=== PATIENT | female | born 1990 | race Caucasian/White ===

== ENCOUNTER 2017-08-14 11:04 | Emergency (ER) | payer OTHER ==
[~2017-08-14] VITALS: Ht 154.9 cm; Wt 89.1 kg
[2017-08-14] MEDS ORDERED: VITA200015 PO (11:20)
[2017-08-14] MEDS ORDERED: ADDE30CA3 PO (11:20)
[2017-08-14] MEDS ORDERED: PRIS50TA PO (11:20)
[2017-08-14] MEDS ORDERED: iron (11:20)
[2017-08-14] MEDS ORDERED: ADDE1TAB14 PO (11:20)
[2017-08-14] MEDS ORDERED: NS 1,000 ML IV ONE (12:15)
[2017-08-14] MEDS: MORPHINE 4 MG/ML 1ML SYRINGE IV PRN ×2 (12:18→14:24)
[2017-08-14 12:20] LABS: BASO % 0.4 % (0.0-1.0); EOS # 0.1 K/mm3 (0.0-0.50); EOS % 1.5 % (0.0-3.0); LARGE UNSTAINED CELL # 0.2 K/mm3 (0.0-0.4); LARGE UNSTAINED CELL % 2.4 % (0.0-4.0); LYMPH # 2.2 K/mm3 (1.5-6.5); MEAN CORPUSCULAR HEMOGLOBIN 30.4 pg (27.0-33.0); MEAN CORPUSCULAR HGB CONC 34.9 g/dl (32.0-36.5); MONO # 0.4 K/mm3 (0.0-0.8); MONO % 4.4 % (0.0-5.0); NEUTROPHILS # 5.7 K/mm3 (1.8-7.7); NEUTROPHILS % 66.2 % (36.0-66.0); PLATELET COUNT, AUTOMATED 374 k/mm3 (150-450); RED CELL DISTRIBUTION WIDTH 13.8 % (11.5-14.5); WHITE BLOOD COUNT 8.6 K/mm3 (4.0-10.0)
[2017-08-14 12:27] LABS: ALBUMIN 4.1 GM/DL (3.2-5.2); ALBUMIN/GLOBULIN RATIO 1.05 (1.00-1.93); ALKALINE PHOSPHATASE 82 U/L (45-117); ALT/SGPT 56 U/L (12-78); ANION GAP 7 MEQ/L (8-16); AST/SGOT 22 U/L (15-37); BILIRUBIN,DIRECT < 0.1 MG/DL (0.0-0.2); BILIRUBIN,TOTAL 0.2 MG/DL (0.2-1.0); BLOOD UREA NITROGEN 14 MG/DL (7-18); CALCIUM LEVEL 9.3 MG/DL (8.5-10.1); CARBON DIOXIDE LEVEL 25 MEQ/L (21-32); CHLORIDE LEVEL 103 MEQ/L (98-107); CREATININE FOR GFR 0.71 MG/DL (0.55-1.02); GLOMERULAR FILTRATION RATE > 60.0 (>60); GLUCOSE, FASTING 119 MG/DL (70-105); POTASSIUM SERUM 3.8 MEQ/L (3.5-5.1); SODIUM LEVEL 135 MEQ/L (136-145)
[2017-08-14] MEDS ORDERED: ISOVUE-370 76% 100ML VIAL (Q9967) As Ordered ONE (12:46)
--- NOTE | 2017-08-14 13:30 | REP ---
PELVIC ULTRASOUND: Real-time sonographic evaluation of the pelvis performed utilizing transabdominal and endovaginal technique. Bladder measures 8.9 x 5.1 x 8.1 cm. Uterus measures 9.2 x 4.6 x 6.1 cm. IUD is seen within the endometrial canal. Endometrial thickness is approximately 1.4 cm. Right ovary measures 2.6 x 2.5 x 1.9 cm. Left ovary measures 4.0 x 2.9 x 3.7 cm. There is a complex cyst of the left ovary 3.0 x 2.8 x 1.8 cm. There is no evidence of ovarian torsion with blood flow seen in each ovary with duplex Doppler evaluation, RI right ovary 0.52 and left ovary 0.57. There is no free fluid identified. IMPRESSION: IUD within the endometrial canal. Complex cyst left ovary 3 cm in maximum diameter. No torsion or free fluid. Signed by Phu Wright MD 08/14/2017 01:44 P
--- NOTE | 2017-08-14 14:29 | REP ---
CT ABDOMEN AND PELVIS WITH IV CONTRAST: TECHNIQUE: Axial contrast enhanced images from the lung bases to the pubic symphysis using 100 mL Isovue 370 intravenous contrast material with multiplanar reformations. COMPARISON: 05/29/2015. Visualized lungs bases are clear. The liver, spleen, adrenals, pancreas are unremarkable. There is no hydronephrosis. There is a right renal cyst posteriorly and somewhat superiorly measuring about 1.5 cm in diameter. There is no abdominal aortic aneurysm. There is no adenopathy. There is no free air or free fluid. No bowel wall thickening is seen. The appendix is normal. There is a left ovarian cyst measuring approximately 3.2 cm in diameter. IUD is seen within the uterus. Urinary bladder is grossly unremarkable. IMPRESSION: No evidence of appendicitis. Left ovarian cyst measures 3.2 cm in diameter. No free air or free fluid. Signed by Phu Wright MD 08/15/2017 05:32 P
[2017-08-14] MEDS ORDERED: BACT800T5 PO (14:38)
[2017-08-14] MEDS ORDERED: NORCOTAB PO (14:39)
[2017-08-14 14:50] VITALS: BP 121/77
== END 2017-08-14 14:53 | disposition home or self-care (01) ==
LOC: M ED 11:04
DX: N39.0 Urinary tract infection, site not specified (principal); N83.292 Other ovarian cyst, left side; Z87.440 Personal history of urinary (tract) infections; K21.9 Gastro-esophageal reflux disease without esophagitis; F90.9 Attention-deficit hyperactivity disorder, unspecified type; F41.9 Anxiety disorder, unspecified; F32.9 Major depressive disorder, single episode, unspecified; Z87.59 Personal history of other complications of pregnancy, childbirth and the puerperium; Z87.42 Personal history of other diseases of the female genital tract; Z85.3 Personal history of malignant neoplasm of breast; Z90.13 Acquired absence of bilateral breasts and nipples; F17.200 Nicotine dependence, unspecified, uncomplicated; F12.10 Cannabis abuse, uncomplicated; Z79.899 Other long term (current) drug therapy; Z91.040 Latex allergy status
CPT/HCPCS: 74177; 76830; 76856; 80048; 80076; 81001; 81025; 83690; 85025; 87086; 93976; 96361; 96374; 99283; Q9967

== ENCOUNTER → 2020-01-10 | Outpatient (REF) | payer OTHER ==
[~2020-01-10] MED LIST: ADDE1TAB14 PO; ADDE30CA3 PO; BACT800T5 PO; HYDR-3715 PO; PRIS50TA PO; VITA200015 PO; iron
[2020-01-10 17:55] LABS: INFLUENZA A AMPLIFICATION POSITIVE (NEGATIVE); INFLUENZA B AMPLIFICATION NEGATIVE (NEGATIVE)
== END ==
LOC: M LAB REF 12:40
PROVIDERS: ATTEND Physician Assistant Medical
DX: Z79.899 Other long term (current) drug therapy (principal)

== ENCOUNTER → 2020-05-26 | Outpatient (CLI) | payer OTHER ==
[2020-05-26 16:20] LABS: HEMATOCRIT 43.7 % (36.0-47.0); HEMOGLOBIN 14.3 g/dl (12.0-15.5); MEAN CORPUSCULAR HGB CONC 32.7 g/dl (32.0-36.5); MEAN CORPUSCULAR VOLUME 91.8 fl (80.0-96.0); PLATELET COUNT, AUTOMATED 263 10^3/uL (150-450); RED BLOOD COUNT 4.76 10^6/uL (4.00-5.40); WHITE BLOOD COUNT 9.3 10^3/uL (4.0-10.0)
[2020-05-26 16:32] LABS: ALBUMIN 3.9 GM/DL (3.2-5.2); ALT/SGPT 74 U/L (12-78); BILIRUBIN,TOTAL 0.5 MG/DL (0.2-1.0); BLOOD UREA NITROGEN 12 MG/DL (7-18); CARBON DIOXIDE LEVEL 27 MEQ/L (21-32); CHLORIDE LEVEL 106 MEQ/L (98-107); CHOLESTEROL LEVEL 221 MG/DL (<200); CHOLESTEROL RISK RATIO 5.139 (<5); CREATININE FOR GFR 0.77 MG/DL (0.55-1.30); FERRITIN 109 NG/ML (8-252); GLOMERULAR FILTRATION RATE > 60.0 (>60); GLUCOSE, FASTING 119 MG/DL (70-100); HDL CHOLESTEROL 43 MG/DL (>40); IRON (FE) 73 UG/DL (50-170); LDL CHOLESTEROL 131 MG/DL (<100); NON-HDL-C 178 MG/DL; PERCENT SATURATION 20.9 % (13.2-45.0); POTASSIUM SERUM 4.3 MEQ/L (3.5-5.1); SODIUM LEVEL 139 MEQ/L (136-145); TOTAL 25(OH) VITAMIN D 27.4 NG/ML (30.0-100.0); TOTAL IRON BINDING CAPACITY 349 UG/DL (250-450); TOTAL PROTEIN 7.2 GM/DL (6.4-8.2); TRIGLYCERIDES LEVEL 235 MG/DL (<150)
== END ==
LOC: M LRY 09:25
PROVIDERS: ATTEND Family Medicine
DX: Z79.899 Other long term (current) drug therapy (principal)

== ENCOUNTER → 2021-05-12 | Outpatient (CLI) | payer OTHER ==
--- NOTE | 2021-05-12 09:17 | REP ---
INDICATION: NONALCOHOLIC STEATOHEPATITIS (ANAND) COMPARISON: None. TECHNIQUE: Real time alegre scale ultrasound examination using curved array transducer. FINDINGS: Liver is mildly enlarged and measures 22 cm in craniocaudal length with increased parenchymal echotexture suggesting fatty infiltration. Focal fatty sparing adjacent to the gallbladder fossa noted. No further focal hepatic lesion identified. Pancreas is incompletely evaluated due to interposed bowel gas. The gallbladder demonstrates sludge without wall thickening or pericholecystic fluid. No biliary ductal dilatation is appreciated and the common bile duct measures 3.9 mm diameter. Right kidney is normal in reniform shape without hydronephrosis and measures 9.8 x 5.2 x 4.0 cm. No ascites in the visualized right upper quadrant. IMPRESSION: 1. Hepatomegaly and hepatosteatosis. 2. Small amount of layering sludge in the gallbladder without evidence for acute cholecystitis. <Electronically signed by Uvaldo Bates > 05/12/21 0969
== END ==
LOC: M RAD 08:30
PROVIDERS: ATTEND Internal Medicine Gastroenterology
DX: K75.81 Nonalcoholic steatohepatitis (NASH) (principal); R16.0 Hepatomegaly, not elsewhere classified

== ENCOUNTER 2021-09-08 01:54 | Emergency (ER) | payer OTHER ==
[~2021-09-08] VITALS: Ht 157.5 cm; Wt 61.4 kg
--- OUTSIDE RECORDS SUMMARY | 2021-09-08 01:58 | CCD | Continuity of Care Document ---
Author Author Katalina ROBINS M.D. Organization Unknown Address [address] [place] [address] Phone [phone] Care Team Providers Care Chief Fundraising Officer Name Role Phone Jacob Valenzuela M.D. AUTM [phone] Problems Description No Information Available Social History Type Date Description Comments Sex Unknown Allergies, Adverse Reactions, Alerts Description No Information Available Medications Active Medications SIG Qnty Indications Ordering Provide r Date Prednisone 20mg Tablets 3 by mouth daily x 3 days; then 2 tab daily x 3 days; then 1 tab daily x 3 days; then 1/2 tab daily x 3 days 20tabs Wendy Robins M.D. 08/04/2021 Cyclobenzaprine HCL 5mg Tablets 1 tab daily as needed 30tabs Wendy Robins M.D. 08/04/2021 Immunizations Description No Information Available Vital Signs Description No Information Available Results Description No Information Available Procedures Date Code Description Status 08/04/2021 81041 Office/Outpatient Established Mo d MDM 30-39 Min Completed 06/27/2021 58729 Office/Outpatient Established Mo d MDM 30-39 Min Completed 05/22/2021 32198 Nerve Conduction 11-12 Studies C ompleted 05/22/2021 92937 Needle Electromyography Complete , Five Or More Muscles Studied Completed 05/22/2021 71880 Needle Electromyography Complete , Five Or More Muscles Studied Completed 05/19/2021 08091 Sympathetic Skin Responses Compl eted 05/19/2021 77168 Test Autonomic Nervous System, C ardiovagal Innervation Completed 05/19/2021 52956 Artery Study Extremity Mult Leve ls Bilateral Completed 05/15/2021 63778 Nerve Conduction 9-10 Studies Co mpleted 05/15/2021 78554 Needle Electromyography Complete , Five Or More Muscles Studied Completed 05/15/2021 19591 Needle Electromyography Complete , Five Or More Muscles Studied Completed 04/27/2021 08434 Office/Outpatient New Moderate M DM 45-59 Minutes Completed Medical Devices Description No Information Available Encounters Type Date Location Provider Dx Diagnosis Office Visit 08/04/2021 11:30a Main office - [place] Wendy Robins M.D. G56.03 Carpal tunnel syndrome, bilateral upper limbs M47.892 Other spondylosis, cervical region R26.2 Difficulty in walking, not e lsewhere classified M54.5 Low back pain M47.897 Other spondylosis, lumbosacr al region M54.2 Cervicalgia R20.2 Paresthesia of skin M54.12 Radiculopathy, cervical nitza on Office Visit 06/27/2021 8:00a Main office - [place] Wendy Robins M.D. M79.605 Pain in left leg G56.03 Carpal tunnel syndrome, bila teral upper limbs M54.2 Cervicalgia R20.2 Paresthesia of skin M54.12 Radiculopathy, cervical nitza on M54.81 Occipital neuralgia Office Visit 04/27/2021 2:00p Main office - [place] Wendy Robins M.D. M79.605 Pain in left leg M79.602 Pain in left arm M54.5 Low back pain R20.2 Paresthesia of skin Assessments Date Code Description Provider 08/04/2021 G56.03 Carpal tunnel syndrome, bilatera l upper limbs Wendy Robins M.D. 08/04/2021 M47.892 Other spondylosis, cervical nitza on Wendy ShimonGuille vasques 08/04/2021 R26.2 Difficulty in walking, not elsew here classified Wendy Robins M.D. 08/04/2021 M54.5 Low back pain Gualberto Gan 08/04/2021 M47.897 Other spondylosis, lumbosacral r egion Wendy Robins M.D. 08/04/2021 M54.2 Cervicalgia Gualberto Gan 08/04/2021 R20.2 Paresthesia of skin Wendy Shimon , M.D. 08/04/2021 M54.12 Radiculopathy, cervical region S undus Shimon, M.D. 06/27/2021 M79.605 Pain in left leg Wendy Shimon, M .D. 06/27/2021 G56.03 Carpal tunnel syndrome, bilatera l upper limbs Wendy Shimon, M.D. 06/27/2021 M54.2 Cervicalgia Wendy Shimon, M. D. 06/27/2021 R20.2 Paresthesia of skin Wendy Shimon , M.D. 06/27/2021 M54.12 Radiculopathy, cervical region S undus Shimon, M.D. 06/27/2021 M54.81 Occipital neuralgia Wendy Shimon , M.D. 05/22/2021 M79.604 Pain in right leg Gualberto Hobbs 05/22/2021 M79.669 Pain in unspecified lower leg Mo Litzy Mora.DNaheed 05/22/2021 R20.2 Paresthesia of skin Litzy Hobbs.D. 05/22/2021 M79.605 Pain in left leg Elana Hobbs 05/19/2021 G60.8 Other hereditary and idiopathic neuropathies Wendy Shimon, M.DNaheed 05/19/2021 G60.8 Other hereditary and idiopathic neuropathies Ans/VS 05/19/2021 I70.223 Atherosclerosis of n ative arteries of extremities with rest pain, bilateral legs Ans/VS 05/19/2021 I70.228 Atherosclerosis of n ative arteries of extremities with rest pain, other extremity Ans/VS 05/15/2021 G56.03 Carpal tunnel syndrome, bilatera l upper limbs Timmy Prieto M.D. 05/15/2021 M54.12 Radiculopathy, cervical region M blank Prieto M.D. 05/15/2021 G56.01 Carpal tunnel syndrome, right up per limb Timmy Prieto M.D. 05/15/2021 G56.02 Carpal tunnel syndrome, left upp er limb Timmy Prieto M.D. 04/27/2021 M79.605 Pain in left leg Litzy Gan 04/27/2021 M79.602 Pain in left arm Litzy Gan 04/27/2021 M54.5 Low back pain Gualberto Gan 04/27/2021 R20.2 Paresthesia of skin Wendy Robins M.D. Plan of Treatment Future Appointment(s):* 09/26/2021 2:00 pm - Kamla Harris P.A.-C. at [facility] Functional Status Description No Information Available Mental Status Description No Information Available Referrals Description No Information Available
--- OUTSIDE RECORDS SUMMARY | 2021-09-08 01:58 | CCD | Continuity of Care Document ---
Author Author Katalina ROBINS M.D. Organization Unknown Address [address] [place] [address] Phone [phone] Care Team Providers Care Dairy Management Specialist Name Role Phone Jacob Valenzuela M.D. AUTM [phone] Problems Description No Information Available Social History Type Date Description Comments Sex Unknown Allergies, Adverse Reactions, Alerts Description No Information Available Medications Description No Information Available Immunizations Description No Information Available Vital Signs Description No Information Available Results Description No Information Available Procedures Date Code Description Status 05/22/2021 97013 Nerve Conduction 11-12 Studies C ompleted 05/22/2021 60483 Needle Electromyography Complete , Five Or More Muscles Studied Completed 05/22/2021 76307 Needle Electromyography Complete , Five Or More Muscles Studied Completed 05/19/2021 37654 Sympathetic Skin Responses Compl eted 05/19/2021 44940 Test Autonomic Nervous System, C ardiovagal Innervation Completed 05/19/2021 88627 Artery Study Extremity Mult Leve ls Bilateral Completed 05/15/2021 00956 Nerve Conduction 9-10 Studies Co mpleted 05/15/2021 73331 Needle Electromyography Complete , Five Or More Muscles Studied Completed 05/15/2021 65619 Needle Electromyography Complete , Five Or More Muscles Studied Completed 04/27/2021 58486 Office/Outpatient New Moderate M DM 45-59 Minutes Completed Medical Devices Description No Information Available Encounters Type Date Location Provider Dx Diagnosis Office Visit 04/27/2021 2:00p Main office - [place] Wendy Robins M.D. M79.605 Pain in left leg M79.602 Pain in left arm M54.5 Low back pain R20.2 Paresthesia of skin Assessments Date Code Description Provider 05/22/2021 M79.604 Pain in right leg Gualberto Hobbs 05/22/2021 M79.669 Pain in unspecified lower leg Salvador Prieto M.D. 05/22/2021 R20.2 Paresthesia of skin Timmy Prieto M.D. 05/22/2021 M79.605 Pain in left leg Elana Hobbs 05/19/2021 G60.8 Other hereditary and idiopathic neuropathies Wendy Robins M.D. 05/19/2021 G60.8 Other hereditary and idiopathic neuropathies Ans/VS 05/19/2021 I70.223 Atherosclerosis of n ative arteries of extremities with rest pain, bilateral legs Ans/VS 05/19/2021 I70.228 Atherosclerosis of n ative arteries of extremities with rest pain, other extremity Ans/VS 05/15/2021 G56.03 Carpal tunnel syndrome, bilatera l upper limbs Timmy Prieto M.D. 05/15/2021 M54.12 Radiculopathy, cervical region blank Prieto M.D. 05/15/2021 G56.01 Carpal tunnel syndrome, right up per limb Timmy Prieto M.D. 05/15/2021 G56.02 Carpal tunnel syndrome, left upp er limb Timmy Prieto M.D. 04/27/2021 M79.605 Pain in left leg Litzy Gan 04/27/2021 M79.602 Pain in left arm Litzy Gan 04/27/2021 M54.5 Low back pain Gualberto Gan 04/27/2021 R20.2 Paresthesia of skin Wendy Robins M.D. Plan of Treatment No Information Available Functional Status Description No Information Available Mental Status Description No Information Available Referrals Description No Information Available
--- OUTSIDE RECORDS SUMMARY | 2021-09-08 01:58 | CCD | Continuity of Care Document ---
Author Author Katalina ROBINS M.D. Organization Unknown Address [address] [place] [address] Phone [phone] Care Team Providers Care Reports Analyst Name Role Phone Jacob Valenzuela M.D. AUTM [phone] Problems Description No Information Available Social History Type Date Description Comments Sex Unknown Allergies, Adverse Reactions, Alerts Description No Information Available Medications Description No Information Available Immunizations Description No Information Available Vital Signs Description No Information Available Results Description No Information Available Procedures Date Code Description Status 06/27/2021 45162 Office/Outpatient Established Mo d MDM 30-39 Min Completed 05/22/2021 47312 Nerve Conduction 11-12 Studies C ompleted 05/22/2021 73309 Needle Electromyography Complete , Five Or More Muscles Studied Completed 05/22/2021 75732 Needle Electromyography Complete , Five Or More Muscles Studied Completed 05/19/2021 29158 Sympathetic Skin Responses Compl eted 05/19/2021 20424 Test Autonomic Nervous System, C ardiovagal Innervation Completed 05/19/2021 59884 Artery Study Extremity Mult Leve ls Bilateral Completed 05/15/2021 83272 Nerve Conduction 9-10 Studies Co mpleted 05/15/2021 92280 Needle Electromyography Complete , Five Or More Muscles Studied Completed 05/15/2021 97420 Needle Electromyography Complete , Five Or More Muscles Studied Completed 04/27/2021 42322 Office/Outpatient New Moderate M DM 45-59 Minutes Completed Medical Devices Description No Information Available Encounters Type Date Location Provider Dx Diagnosis Office Visit 06/27/2021 8:00a Main office - [place] Wendy Robins M.D. M79.605 Pain in left leg G56.03 Carpal tunnel syndrome, bila teral upper limbs M54.2 Cervicalgia R20.2 Paresthesia of skin M54.12 Radiculopathy, cervical nitza on M54.81 Occipital neuralgia Office Visit 04/27/2021 2:00p Main office - [place] Wendy Robins M.D. M79.605 Pain in left leg M79.602 Pain in left arm M54.5 Low back pain R20.2 Paresthesia of skin Assessments Date Code Description Provider 06/27/2021 M79.605 Pain in left leg Wendy Shimon, M .DNaheed 06/27/2021 G56.03 Carpal tunnel syndrome, bilatera l upper limbs Wendy Shimon, Guille 06/27/2021 M54.2 Cervicalgia Wendy ShimonGualberto vasques 06/27/2021 R20.2 Paresthesia of skin Wendy ShimonGuille vasques 06/27/2021 M54.12 Radiculopathy, cervical region S undus Guille Robins 06/27/2021 M54.81 Occipital neuralgia Wendy Robins M.D. 05/22/2021 M79.604 Pain in right leg Gualberto Hobbs 05/22/2021 M79.669 Pain in unspecified lower leg Mo alfreda Prieto M.D. 05/22/2021 R20.2 Paresthesia of skin [...] Gan 04/27/2021 M79.602 Pain in left arm Lizty Gan 04/27/2021 M54.5 Low back pain Gualberto Gan 04/27/2021 R20.2 Paresthesia of skin Wendy Robins M.D. Plan of Treatment Future Appointment(s):* 09/07/2021 8:45 am - Wendy Robins M.D. at Main office - [place] Functional Status Description No Information Available Mental Status Description No Information Available Referrals Description No Information Available
--- OUTSIDE RECORDS SUMMARY | 2021-09-08 01:58 | CCD | Continuity of Care Document ---
Author Author Katalina ROBINS M.D. Organization Unknown Address [address] [place] [address] Phone [phone] Care Team Providers Care Filter Press Tender Head Name Role Phone Jacob Valenzuela M.D. AUTM [phone] Problems Description No Information Available Social History [...] Available Procedures Date Code Description Status 06/27/2021 53310 Office/Outpatient Established Mo d MDM 30-39 Min Completed 05/22/2021 02575 Nerve Conduction 11-12 Studies C ompleted 05/22/2021 12769 Needle Electromyography Complete , Five Or More Muscles Studied Completed 05/22/2021 77391 Needle Electromyography Complete , Five Or More Muscles Studied Completed 05/19/2021 76587 Sympathetic Skin Responses Compl eted 05/19/2021 76444 Test Autonomic Nervous System, C ardiovagal Innervation Completed 05/19/2021 53742 Artery Study Extremity Mult Leve ls Bilateral Completed 05/15/2021 35408 Nerve Conduction 9-10 Studies Co mpleted 05/15/2021 90264 Needle Electromyography Complete , Five Or More Muscles Studied Completed 05/15/2021 70808 Needle Electromyography Complete , Five Or More Muscles Studied Completed 04/27/2021 77077 Office/Outpatient New Moderate M DM 45-59 Minutes Completed Medical Devices Description No Information Available Encounters Type Date Location Provider Dx Diagnosis Office Visit 06/27/2021 8:00a Main office - [place] Wendy Robins M.D. M79.605 Pain in left leg G56.03 Carpal tunnel syndrome, bila teral upper limbs M54.2 Cervicalgia R20.2 Paresthesia of skin M54.12 Radiculopathy, cervical nitza on M54.81 Occipital neuralgia Office Visit 04/27/2021 2:00p Main office - [place] Wendy Robins M.D. M79.605 Pain in left leg M79.602 Pain in left arm M54.5 Low back pain R20.2 Paresthesia of skin Assessments Date Code Description Provider 06/27/2021 M79.605 Pain in left leg Litzy Gan 06/27/2021 G56.03 Carpal tunnel syndrome, bilatera l upper limbs Wendy Robins M.D. 06/27/2021 M54.2 Cervicalgia Gualberto Gan 06/27/2021 R20.2 Paresthesia of skin Wendy Robins M.D. 06/27/2021 M54.12 Radiculopathy, cervical region S undus ShimonGuille vasques 06/27/2021 M54.81 Occipital neuralgia Wendy Robins M.D. [...]
--- OUTSIDE RECORDS SUMMARY | 2021-09-08 01:59 | CCD ---
Author Author [facility] Organization [facility] Address Unknown Phone Unavailable Care Team Providers Care Securities Compliance Examiner Name Role Phone [facility] Unavailable Unavailable PETROFFBEVE PA Unavailable Unavailable PETROFFBEVE PA Unavailable Unavailable PETROFF, RENETTA PA Unavailable Unavailable PETROFF, RENETTA PA Unavailable Unavailable PETROFF, RENETTA PA Unavailable Unavailable PETROFF, RENETTA PA Unavailable Unavailable PETROFF, RENETTA PA Unavailable Unavailable PETROFF, RENETTA PA Unavailable Unavailable EMERTON, A JUDY MD Unavailable Unavailable EMERTON, A JUDY MD Unavailable Unavailable EMERTON, A JUDY MD Unavailable Unavailable EMERTON, A JUDY MD Unavailable Unavailable EMERTON, A JUDY MD Unavailable Unavailable EMERTON, A JUDY MD Unavailable Unavailable EMERTON, A JUDY MD Unavailable Unavailable EMERTON, A JUDY MD Unavailable Unavailable EMERTON, A JUDY MD Unavailable Unavailable EMERTON, A JUDY MD Unavailable Unavailable EMERTON, A JUDY MD Unavailable Unavailable EMERTON, A JUDY MD Unavailable Unavailable EMERTON, A JUDY MD Unavailable Unavailable EMERTON, A JUDY MD Unavailable Unavailable EMERTON, A JUDY MD Unavailable Unavailable EMERTON, A JUDY MD Unavailable Unavailable EMERTON, A JUDY MD Unavailable Unavailable EMERTON, A JUDY MD Unavailable Unavailable EMERTON, A JUDY MD Unavailable Unavailable EMERTON, A JUDY MD Unavailable Unavailable EMERTON, A JUDY MD Unavailable Unavailable EMERTON, A JUDY MD Unavailable Unavailable EMERTON, A JUDY MD Unavailable Unavailable EMERTON, A JUDY MD Unavailable Unavailable EMERTON, A JUDY MD Unavailable Unavailable EMERTON, A JUDY MD Unavailable Unavailable EMERTON, A JUDY MD Unavailable Unavailable EMERTON, A JUDY MD Unavailable Unavailable EMERTON, A JUDY MD Unavailable Unavailable EMERTON, A JUDY MD Unavailable Unavailable EMERTON, A JUDY MD Unavailable Unavailable EMERTON, A JUDY MD Unavailable Unavailable EMERTON, A JUDY MD Unavailable Unavailable EMERTON, A JUDY MD Unavailable Unavailable EMERTON, A JUDY MD Unavailable Unavailable EMERTON, A JUDY MD Unavailable Unavailable EMERTON, A JUDY MD Unavailable Unavailable EMERTON, A JDUY MD Unavailable Unavailable EMERTON, A JUDY MD Unavailable Unavailable EMERTON, A JUDY MD Unavailable Unavailable EMERTON, A JUDY MD Unavailable Unavailable EMERTON, A JUDY MD Unavailable Unavailable EMERTON, A JUDY MD Unavailable Unavailable EMERTON, A JUDY MD Unavailable Unavailable EMERTON, A JUDY MD Unavailable Unavailable EMERTON, A JUDY MD Unavailable Unavailable EMERTON, A JUDY MD Unavailable Unavailable EMERTON, A JUDY MD Unavailable Unavailable EMERTON, A JUDY MD Unavailable Unavailable EMERTON, A JUDY MD Unavailable Unavailable EMERTON, A JUDY MD Unavailable Unavailable EMERTON, A JUDY MD Unavailable Unavailable EMERTON, A JUDY MD Unavailable Unavailable EMERTON, A JUDY MD Unavailable Unavailable EMERTON, A JUDY MD Unavailable Unavailable EMERTON, A JUDY MD Unavailable Unavailable EMERTON, A JUDY MD Unavailable Unavailable EMERTON, A JUDY MD Unavailable Unavailable EMERTON, A JUDY MD Unavailable Unavailable EMERTON, A JUDY MD Unavailable Unavailable EMERTON, A JUDY MD Unavailable Unavailable EMERTON, A JUDY MD Unavailable Unavailable EMERTON, A JUDY MD Unavailable Unavailable EMERTON, A JUDY MD Unavailable Unavailable EMERTON, A JUDY MD Unavailable Unavailable EMERTON, A JUDY MD Unavailable Unavailable EMERTON, A JUDY MD Unavailable Unavailable EMERTON, A JUDY MD Unavailable Unavailable EMERTON, A JUDY MD Unavailable Unavailable EMERTON, A JUDY MD Unavailable Unavailable EMERTON, A JUDY MD Unavailable Unavailable EMERTON, A JUDY MD Unavailable Unavailable EMERTON, A JUDY MD Unavailable Unavailable EMERTON, A JUDY MD Unavailable Unavailable EMERTON, A JUDY MD Unavailable Unavailable EMERTON, A JUDY MD Unavailable Unavailable EMERTON, A JUDY MD Unavailable Unavailable CHROSTOWSKIPOONAMTE MD Unavailable Unavailable CHROSTOWSKIPOONAMTE MD Unavailable Unavailable CHROSTOWSKI TE MD Unavailable Unavailable CHROSTOWSKIPOONAMTE MD Unavailable Unavailable CHROSTOWSKI, TE MD Unavailable Unavailable CHROSTOWSKI, TE MD Unavailable Unavailable CHROSTOWSKI, TE MD Unavailable Unavailable CHROSTOWSKI, TE MD Unavailable Unavailable CHROSTOWSKI, TE MD Unavailable Unavailable CHROSTOWSKI, TE MD Unavailable Unavailable CHROSTOWSKI, TE MD Unavailable Unavailable CHROSTOWSKI, TE MD Unavailable Unavailable CHROSTOWSKI, TE MD Unavailable Unavailable CHROSTOWSKI, TE MD Unavailable Unavailable CHROSTOWSKI, TE MD Unavailable Unavailable CHROSTOWSKI, TE MD Unavailable Unavailable CHROSTOWSKI, TE MD Unavailable Unavailable CHROSTOWSKI, TE MD Unavailable Unavailable CHROSTOWSKI, TE MD Unavailable Unavailable CHROSTOWSKI, TE MD Unavailable Unavailable CHROSTOWSKI, TE MD Unavailable Unavailable CHROSTOWSKI, TE MD Unavailable Unavailable CHROSTOWSKI, TE MD Unavailable Unavailable CHROSTOWSKI, TE MD Unavailable Unavailable CHROSTOWSKI, TE MD Unavailable Unavailable CHROSTOWSKI, TE MD Unavailable Unavailable CHROSTOWSKI, TE MD Unavailable Unavailable CHROSTOWSKI, TE MD Unavailable Unavailable CHROSTOWSKI, TE MD Unavailable Unavailable CHROSTOWSKI, TE MD Unavailable Unavailable CHROSTOWSKI, TE MD Unavailable Unavailable CHROSTTE LEWIS MD Unavailable Unavailable CHROSTTE LEWIS MD Unavailable Unavailable CHROSTTE LEWIS MD Unavailable Unavailable CHROSTTE LEWIS MD Unavailable Unavailable CHROSTTE LEWIS MD Unavailable Unavailable CHROSTTE LEWIS MD Unavailable Unavailable CHROSTTE LEWIS MD Unavailable Unavailable TE TOSCANO MD Unavailable Unavailable Amy Fletcher MD Unavailable Unavailable Amy Fletcher MD Unavailable Unavailable Amy Fletcher MD Unavailable Unavailable Amy Fletcher MD Unavailable Unavailable Amy Fletcher MD Unavailable Unavailable Amy Fletcher MD Unavailable Unavailable Amy Fletcher MD Unavailable Unavailable Amy Fletcher MD Unavailable Unavailable Amy Fletcher MD Unavailable Unavailable Amy Fletcher MD Unavailable Unavailable Amy Fletcher MD Unavailable Unavailable Amy Fletcher MD Unavailable Unavailable Amy Fletcher MD Unavailable Unavailable Amy Fletcher MD Unavailable Unavailable Amy Fletcher MD Unavailable Unavailable Amy Fletcher MD Unavailable Unavailable Amy Fletcher MD Unavailable Unavailable Amy Fletcher MD Unavailable Unavailable Amy Fletcher MD Unavailable Unavailable Amy Fletcher MD Unavailable Unavailable Amy Fletcher MD Unavailable Unavailable Amy Fletcher MD Unavailable Unavailable Amy Fletcher MD Unavailable Unavailable Amy Fletcher MD Unavailable Unavailable Amy Fletcher MD Unavailable Unavailable Amy Fletcher MD Unavailable Unavailable Amy Fletcher MD Unavailable Unavailable Amy Fletcher MD Unavailable Unavailable Amy Fletcher MD Unavailable Unavailable Amy Fletcher MD Unavailable Unavailable Amy Fletcher MD Unavailable Unavailable Amy Fletcher MD Unavailable Unavailable Amy Fletcher MD Unavailable Unavailable Amy Fletcher MD Unavailable Unavailable Amy Fletcher MD Unavailable Unavailable Amy Fletcher MD Unavailable Unavailable Amy Fletcher MD Unavailable Unavailable Amy Fletcher MD Unavailable Unavailable Amy Fletcher MD Unavailable Unavailable Amy Fletcher MD Unavailable Unavailable Amy Fletcher MD Unavailable Unavailable Amy Fletcher MD Unavailable Unavailable Amy Fletcher MD Unavailable Unavailable Amy Fletcher MD Unavailable Unavailable Amy Fletcher MD Unavailable Unavailable Amy Fletcher MD Unavailable Unavailable Amy Fletcher MD Unavailable Unavailable Amy Fletcher MD Unavailable Unavailable Amy Fletcher MD Unavailable Unavailable Amy Fletcher MD Unavailable Unavailable Amy Fletcher MD Unavailable Unavailable Amy Fletcher MD Unavailable Unavailable Amy Fletcher MD Unavailable Unavailable Amy Fletcher MD Unavailable Unavailable Amy Fletcher MD Unavailable Unavailable Amy Fletcher MD Unavailable Unavailable Amy Fletcher MD Unavailable Unavailable Amy Fletcher MD Unavailable Unavailable Amy Fletcher MD Unavailable Unavailable Amy Fletcher MD Unavailable Unavailable Amy Fletcher MD Unavailable Unavailable Amy Fletcher MD Unavailable Unavailable Amy Fletcher MD Unavailable Unavailable Amy Fletcher MD Unavailable Unavailable SYMENOW, G CHRISTOPHER PA Unavailable Unavailable SYMENOW, G CHRISTOPHER PA Unavailable Unavailable SYMENOW, G CHRISTOPHER PA Unavailable Unavailable SYMENOW, G CHRISTOPHER PA Unavailable Unavailable SYMENOW, G CHRISTOPHER PA Unavailable Unavailable SYMENOW, G CHRISTOPHER PA Unavailable Unavailable SYMENOW, G CHRISTOPHER PA Unavailable Unavailable SYMENOW, G CHRISTOPHER PA Unavailable Unavailable SYMENOW, G CHRISTOPHER PA Unavailable Unavailable SYMENOW, G CHRISTOPHER PA Unavailable Unavailable SYMENOW, G CHRISTOPHER PA Unavailable Unavailable SYMENOW, G CHRISTOPHER PA Unavailable Unavailable SYMENOW, G CHRISTOPHER PA Unavailable Unavailable SYMENOW, G CHRISTOPHER PA Unavailable Unavailable SYMENOW, G CHRISTOPHER PA Unavailable Unavailable SYMENOW, G CHRISTOPHER PA Unavailable Unavailable MOON, W KARSTEN PA Unavailable Unavailable MOON, W KARSTEN PA Unavailable Unavailable MOON, W KARSTEN PA Unavailable Unavailable MOON, W KARSTEN PA Unavailable Unavailable MOON, W KARSTEN PA Unavailable Unavailable MOON, W KARSTEN PA Unavailable Unavailable MOON, W KARSTEN PA Unavailable Unavailable MOON, W KARSTEN PA Unavailable Unavailable MOON, W KARSTEN PA Unavailable Unavailable MOON, W KARSTEN PA Unavailable Unavailable MOON, W KARSTEN PA Unavailable Unavailable MOON, W KARSTEN PA Unavailable Unavailable MOON, W KARSTEN PA Unavailable Unavailable MOON, W KARSTEN PA Unavailable Unavailable MOON, W KARSTEN PA Unavailable Unavailable DESJARLAIS, LUCILA INTERVENTIONAL CARDIOLOGIST Unavailable Unavailable DESJARLAIS, LUCILA INTERVENTIONAL CARDIOLOGIST Unavailable Unavailable DESJARLAIS, LUCILA INTERVENTIONAL CARDIOLOGIST Unavailable Unavailable DESJARLAIS, LUCILA INTERVENTIONAL CARDIOLOGIST Unavailable Unavailable DESJARLAIS, LUCILA INTERVENTIONAL CARDIOLOGIST Unavailable Unavailable DESJARLAIS, LUCILA INTERVENTIONAL CARDIOLOGIST Unavailable Unavailable DESJARLAIS, LUCILA INTERVENTIONAL CARDIOLOGIST Unavailable Unavailable DESJARLAIS, LUCILA INTERVENTIONAL CARDIOLOGIST Unavailable Unavailable DESJARLAIS, LUCILA INTERVENTIONAL CARDIOLOGIST Unavailable Unavailable Casimiro LOVELL Unavailable Unavailable Leann Stinson MD Unavailable Unavailable Leann Stinson MD Unavailable Unavailable Leann Stinson MD Unavailable Unavailable Leann Stinson MD Unavailable Unavailable Leann Stinson MD Unavailable Unavailable Leann Stinson MD Unavailable Unavailable Leann Stinson MD Unavailable Unavailable Nizam Rayjenifer GARCIA Unavailable Unavailable Nizam Rayjenifer MD Unavailable Unavailable Nizam Rayjenifer MD Unavailable Unavailable Nizam Rayjenifer MD Unavailable Unavailable Nizam Rayjenifer MD Unavailable Unavailable Nizam Rayjenifer MD Unavailable Unavailable Nizam Rayees MD Unavailable Unavailable Nizam Rayees MD Unavailable Unavailable Nizam Rayjenifer MD Unavailable Unavailable Nizam Rayjenifer MD Unavailable Unavailable Nizam Rayjenifer MD Unavailable Unavailable Nizam, Rayees MD Unavailable Unavailable Nizam, Rayees MD Unavailable Unavailable Nizam, Rayees MD Unavailable Unavailable Nizam, Rayees MD Unavailable Unavailable Nizam Rayjenifer MD Unavailable Unavailable Nizam Rayjenifer MD Unavailable Unavailable Nizam Rayjenifer GARCIA Unavailable Unavailable Nizam Rayjenifer MD Unavailable Unavailable Nizam Rayjenifer MD Unavailable Unavailable Nizam Rayjenifer MD Unavailable Unavailable Nizam Rayjenifer MD Unavailable Unavailable Nizam Rayjenifer MD Unavailable Unavailable Nizam Rayjenifer MD Unavailable Unavailable Nizam Rayjenifer MD Unavailable Unavailable Niradham Rayjenifer MD Unavailable Unavailable Nizam Rayjenifer MD Unavailable Unavailable Nizam Rayjenifer MD Unavailable Unavailable Nizam Rayjenifer MD Unavailable Unavailable Nizam, Rayejnifer MD Unavailable Unavailable Nizam Rayjenifer MD Unavailable Unavailable Niadriana Rayjenifer GARCIA Unavailable Unavailable Niadriana Rayjenifer GARCIA Unavailable Unavailable Nizabrayan Rayjenifer MD Unavailable Unavailable Nizabrayan Rayjeinfer MD Unavailable Unavailable Nizabrayan Rayjenifer MD Unavailable Unavailable Niadriana Rayjenifer MD Unavailable Unavailable Niadriana Rayjenifer GARCIA Unavailable Unavailable Niadriana Rayjenifer GARCIA Unavailable Unavailable Niadriana Rayjenifer GARCIA Unavailable Unavailable Nizam Rayjenifer GARCIA Unavailable Unavailable Nizam, Rayjenifer MD Unavailable Unavailable Nizam Rayjenifer GARCIA Unavailable Unavailable Nizam, Rayjenifer MD Unavailable Unavailable Nizam, Rayjenifer GARCIA Unavailable Unavailable Niadriana Rayjenifer GARCIA Unavailable Unavailable Niadriana Rayjenifer GARCIA Unavailable Unavailable Nizam Rayjenifer GARCIA Unavailable Unavailable Nizam Rayjenifer GARCIA Unavailable Unavailable Nizam Rayjenifer GARCIA Unavailable Unavailable Nizam Rayjenifer GARCIA Unavailable Unavailable Nizam Rayjenifer MD Unavailable Unavailable Nizabrayan Rayjenifer GARCIA Unavailable Unavailable Nizabrayan Rayjenifer GARCIA Unavailable Unavailable Nizabrayan, Rayjenifer GARCIA Unavailable Unavailable Nizam, Rayees MD Unavailable Unavailable Nizam, Rayees MD Unavailable Unavailable Nizam, Rayees MD Unavailable Unavailable Nizam, Rayees MD Unavailable Unavailable Nizam, Rayees MD Unavailable Unavailable Nizam, Rayees MD Unavailable Unavailable Nizam, Rayees MD Unavailable Unavailable Nizam, Rayees MD Unavailable Unavailable Nizam, Rayees MD Unavailable Unavailable Nizam, Rayees MD Unavailable Unavailable Nizam, Rayees MD Unavailable Unavailable Nizam, Rayees MD Unavailable Unavailable Nizam, Rayees MD Unavailable Unavailable Nizam, Rayees MD Unavailable Unavailable Nizam, Rayees MD Unavailable Unavailable Commey, Efren Unavailable Unavailable Commey, Efren Unavailable Unavailable Commey, Efren Unavailable Unavailable Commey, Efren Unavailable Unavailable Commey, Efren Unavailable Unavailable Commey, Efren Unavailable Unavailable Commey, Efren Unavailable Unavailable Commey, Efren Unavailable Unavailable Commey, Efren Unavailable Unavailable Commey, Efren Unavailable Unavailable Commey, Efren Unavailable Unavailable Commey, Efren Unavailable Unavailable Commey, Efren Unavailable Unavailable Commey, Efren Unavailable Unavailable Commey, Efren Unavailable Unavailable Commey, Efren Unavailable Unavailable Commey, Efren Unavailable Unavailable Commey, Efren Unavailable Unavailable Commey, Efren Unavailable Unavailable Commey, Efren Unavailable Unavailable Commey, Efren Unavailable Unavailable Commey, Efren Unavailable Unavailable Commey, Efren Unavailable Unavailable Commey, Efren Unavailable Unavailable Commey, Efren Unavailable Unavailable Commey, Efren Unavailable Unavailable Commey, Efren Unavailable Unavailable Commey, Efren Unavailable Unavailable Commey, Efren Unavailable Unavailable Commey, Efren Unavailable Unavailable Commey, Efren Unavailable Unavailable Sloane ORDONEZ MD Unavailable Unavailable Sloane ORDONEZ MD Unavailable Unavailable Sloane ORDONEZ MD Unavailable Unavailable Sloane ORDONEZ MD Unavailable Unavailable Sloane ORDONEZ MD Unavailable Unavailable Sloane ORDONEZ MD Unavailable Unavailable Sloane ORDONEZ MD Unavailable Unavailable Sloane ORDONEZ MD Unavailable Unavailable Sloane ORDONEZ MD Unavailable Unavailable Sloane ORDONEZ MD Unavailable Unavailable Sloane ORDONEZ MD Unavailable Unavailable Sloane ORDONEZ MD Unavailable Unavailable Sloane ORDONEZ MD Unavailable Unavailable EMERTON, A JUDY MD Unavailable Unavailable EMERTON, A JUDY MD Unavailable Unavailable EMERTON, A JUDY MD Unavailable Unavailable EMERTON, A JUDY MD Unavailable Unavailable EMERTON, A JUDY MD Unavailable Unavailable EMERTON, A JUDY MD Unavailable Unavailable EMERTON, A JUDY MD Unavailable Unavailable EMERTON, A JUDY MD Unavailable Unavailable EMERTON, A JUDY MD Unavailable Unavailable EMERTON, A JUDY MD Unavailable Unavailable EMERTON, A JUDY MD Unavailable Unavailable EMERTON, A JUDY MD Unavailable Unavailable EMERTON, A JUDY MD Unavailable Unavailable EMERTON, A JUDY MD Unavailable Unavailable EMERTON, A JUDY MD Unavailable Unavailable EMERTON, A JUDY MD Unavailable Unavailable EMERTON, A JUDY MD Unavailable Unavailable EMERTON, A JUDY MD Unavailable Unavailable EMERTON, A JUDY MD Unavailable Unavailable EMERTON, A JUDY MD Unavailable Unavailable EMERTON, A JUDY MD Unavailable Unavailable EMERTON, A JUDY MD Unavailable Unavailable EMERTON, A JUDY MD Unavailable Unavailable EMERTON, A JUDY MD Unavailable Unavailable EMERTON, A JUDY MD Unavailable Unavailable EMERTON, A JUDY MD Unavailable Unavailable EMERTON, A JUDY MD Unavailable Unavailable EMERTON, A JUDY MD Unavailable Unavailable EMERTON, A JUDY MD Unavailable Unavailable EMERTON, A JUDY MD Unavailable Unavailable EMERTON, A JUDY MD Unavailable Unavailable EMERTON, A JUDY MD Unavailable Unavailable EMERTON, A JUDY MD Unavailable Unavailable EMERTON, A JUDY MD Unavailable Unavailable EMERTON, A JUDY MD Unavailable Unavailable EMERTON, A JUDY MD Unavailable Unavailable EMERTON, A JUDY MD Unavailable Unavailable EMERTON, A JUDY MD Unavailable Unavailable EMERTON, A JUDY MD Unavailable Unavailable EMERTON, A JUDY MD Unavailable Unavailable EMERTON, A JUDY MD Unavailable Unavailable EMERTON, A JUDY MD Unavailable Unavailable EMERTON, A JUDY MD Unavailable Unavailable EMERTON, A JUDY MD Unavailable Unavailable EMERTON, A JUDY MD Unavailable Unavailable EMERTON, A JUDY MD Unavailable Unavailable EMERTON, A JUDY MD Unavailable Unavailable EMERTON, A JUDY MD Unavailable Unavailable EMERTON, A JUDY MD Unavailable Unavailable EMERTON, A JUDY MD Unavailable Unavailable EMERTON, A JUDY MD Unavailable Unavailable EMERTON, A JUDY MD Unavailable Unavailable EMERTON, A JUDY MD Unavailable Unavailable EMERTON, A JUDY MD Unavailable Unavailable EMERTON, A JUDY MD Unavailable Unavailable EMERTON, A JUDY MD Unavailable Unavailable EMERTON, A JUDY MD Unavailable Unavailable EMERTON, Sloane KIM MD Unavailable Unavailable EMERTON, Sloane KIM MD Unavailable Unavailable EMERTON, Sloane KIM MD Unavailable Unavailable EMERTON, Sloane KIM MD Unavailable Unavailable EMERTON, Sloane KIM MD Unavailable Unavailable EMERTON, Sloane KIM MD Unavailable Unavailable EMERTON, Sloane KIM MD Unavailable Unavailable Johny, Tabitha Unavailable Johny, Tabitha Unavailable OFE, TERESITA GARCIA Unavailable Unavailable OFE, TERESITA MD Unavailable Unavailable OFE, TERESITA MD Unavailable Unavailable OFE, TERESITA MD Unavailable Unavailable OFE, TERESITA MD Unavailable Unavailable OFE, TERESITA MD Unavailable Unavailable OFE, TERESITA MD Unavailable Unavailable OFE, TERESITA MD Unavailable Unavailable OFE, TERESITA MD Unavailable Unavailable OFE, TERESITA MD Unavailable Unavailable OFE, TERESITA MD Unavailable Unavailable OFE, TERESITA MD Unavailable Unavailable OFE, TERESITA MD Unavailable Unavailable OFE, TERESITA MD Unavailable Unavailable OFE, TERESITA MD Unavailable Unavailable OFE, TERESITA MD Unavailable Unavailable OFE, TERESITA MD Unavailable Unavailable OFE, TERESITA MD Unavailable Unavailable OFE, TERESITA MD Unavailable Unavailable OFE, TERESITA MD Unavailable Unavailable OFE, TERESITA MD Unavailable Unavailable OFE, TERESITA MD Unavailable Unavailable OFE, TERESITA MD Unavailable Unavailable OFE, TERESITA MD Unavailable Unavailable OFE, TERESITA MD Unavailable Unavailable OFE, TERESITA MD Unavailable Unavailable OFE, TERESITA MD Unavailable Unavailable OFE, TERESITA MD Unavailable Unavailable OFE, TERESITA MD Unavailable Unavailable OFE, TERESITA MD Unavailable Unavailable OFE, TERESITA MD Unavailable Unavailable OFE, TERESITA MD Unavailable Unavailable OFE, TERESITA MD Unavailable Unavailable OFE, TERESITA MD Unavailable Unavailable OFE, TERESITA Unavailable Unavailable OFE, TERESITA Unavailable Unavailable OFE, TERESITA Unavailable Unavailable OFE, TERESITA Unavailable Unavailable OFE, TERESITA GARCIA Unavailable Unavailable OFE, TERESITA MD Unavailable Unavailable OFE, TERESITA MD Unavailable Unavailable OFE, TERESITA MD Unavailable Unavailable OFE, TERESITA MD Unavailable Unavailable Stephanie Harrison ANP-BC Unavailable Unavailable Stephanie Harrison ANP-BC Unavailable Unavailable Stephanie Harrison ANP-BC Unavailable Unavailable Stephanie Harrison ANP-BC Unavailable Unavailable Hunter, Stephanie Marlys ANP-BC Unavailable Unavailable Hunter, Stephanie Marlys ANP-BC Unavailable Unavailable Hunter, Stephanie Marlys ANP-BC Unavailable Unavailable Hunter, Stephanie Marlys ANP-BC Unavailable Unavailable Hunter, Stephanie Marlys ANP-BC Unavailable Unavailable Hunter, Stephanie Marlys ANP-BC Unavailable Unavailable Hunter, Stephanie Marlys ANP-BC Unavailable Unavailable Hunter, Stephanie Marlys ANP-BC Unavailable Unavailable Hunter, Stephanie Marlys ANP-BC Unavailable Unavailable Hunter, Stephanie Marlys ANP-BC Unavailable Unavailable Hunter, Stephanie Marlys ANP-BC Unavailable Unavailable Hunter, Stephanie Marlys ANP-BC Unavailable Unavailable Hunetr, Stephanie Marlys ANP-BC Unavailable Unavailable Hunter, Stephanie Marlys ANP-BC Unavailable Unavailable Hunter, Stephanie Marlys ANP-BC Unavailable Unavailable Hunter, Stephanie Marlys ANP-BC Unavailable Unavailable Hunter, Stephanie Marlys ANP-BC Unavailable Unavailable Hunter, Stephanie Marlys ANP-BC Unavailable Unavailable Hunter, Stephanie Marlys ANP-BC Unavailable Unavailable Hunter, Stephanie Marlys ANP-BC Unavailable Unavailable Hunter, Stephanie Marlys ANP-BC Unavailable Unavailable Hunter, Stephanie Marlys ANP-BC Unavailable Unavailable Hunter, Stephanie Marlys ANP-BC Unavailable Unavailable Hunter, Stephanie Marlys ANP-BC Unavailable Unavailable Hunter, Stephanie Marlys ANP-BC Unavailable Unavailable Hunter, Stephanie Marlys ANP-BC Unavailable Unavailable Hunter, Stephanie Marlys ANP-BC Unavailable Unavailable Hunter, Stephanie Marlys ANP-BC Unavailable Unavailable Hunter, Stephanie Marlys ANP-BC Unavailable Unavailable Hunter, Stephanie Marlys ANP-BC Unavailable Unavailable Hunter, Stephanie Marlys ANP-BC Unavailable Unavailable Hunter, Stephanie Marlys ANP-BC Unavailable Unavailable Hunter, Stephanie Marlys ANP-BC Unavailable Unavailable Hunter, Stephanie Marlys ANP-BC Unavailable Unavailable Hunter, Stephanie Marlys ANP-BC Unavailable Unavailable Hunter, Stephanie Marlys ANP-BC Unavailable Unavailable Hunter, Stephanie Marlys ANP-BC Unavailable Unavailable Hunter, Stephanie Marlys ANP-BC Unavailable Unavailable Hunter, Stephanie Marlys ANP-BC Unavailable Unavailable Hunter, Stephanie Marlys ANP-BC Unavailable Unavailable Hunter, Stephanie Marlys ANP-BC Unavailable Unavailable Hunter, Stephanie Marlys ANP-BC Unavailable Unavailable Hunter, Stephanie Marlys ANP-BC Unavailable Unavailable Hunter Stephanie Marlys ANP-BC Unavailable Unavailable Hunter, Stephanie Marlys ANP-BC Unavailable Unavailable Hunter, Stephanie Marlys ANP-BC Unavailable Unavailable Hunter, Stephanie Marlys ANP-BC Unavailable Unavailable Hunter, Stephanie Marlys ANP-BC Unavailable Unavailable Hunter, Stephanie Marlys ANP-BC Unavailable Unavailable Hunter, Stephanie Marlys ANP-BC Unavailable Unavailable Hunter, Stephanie Marlys ANP-BC Unavailable Unavailable Hunter, Stephanie Marlys ANP-BC Unavailable Unavailable Hunter, Stephanie Marlys ANP-BC Unavailable Unavailable Hunter, Stephanie Marlys ANP-BC Unavailable Unavailable Hunter, Stephanie Marlys ANP-BC Unavailable Unavailable Hunter, Stephanie Marlys ANP-BC Unavailable Unavailable Hunter, Stephanie Marlsy ANP-BC Unavailable Unavailable HunterStephanie Marlys ANP-BC Unavailable Unavailable HunterStephanie Marlys ANP-BC Unavailable Unavailable Hunter, Stephanie Marlys ANP-BC Unavailable Unavailable HunterEmilianoStephanie Marlys ANP-BC Unavailable Unavailable Hunter, Stephanie Marlys ANP-BC Unavailable Unavailable TURRIN, GRUPO Unavailable Unavailable TURRIN, GRUPO Unavailable Unavailable TURRIN, GRUPO Unavailable Unavailable TURRIN, GRUPO Unavailable Unavailable DOMENICAKennedi MD Unavailable Unavailable DOMENICA F MAGALIS GARCIA Unavailable Unavailable DOMENICA F MAGALIS MD Unavailable Unavailable DOMENICAKennedi MD Unavailable Unavailable DOMENICAKennedi MD Unavailable Unavailable DOMENICAKennedi MAGALIS MD Unavailable Unavailable DOMENICAKennedi MAGALIS MD Unavailable Unavailable DOMENICAKennedi MD Unavailable Unavailable DOMENICA F MAGALIS MD Unavailable Unavailable DOMENICAKennedi MD Unavailable Unavailable DOMENICA F MAGALIS MD Unavailable Unavailable DOMENICA F MAGALIS GARCIA Unavailable Unavailable DOMENICA F MAGALIS MD Unavailable Unavailable DOMENICA F MAGALIS MD Unavailable Unavailable DOMENICA F MAGALIS MD Unavailable Unavailable DOMENICA F MAGALIS MD Unavailable Unavailable DOMENICA F MAGALIS MD Unavailable Unavailable DOMENICA F MAGALIS MD Unavailable Unavailable DOMENICA F MAGALIS MD Unavailable Unavailable DOMENICA F MAGALIS MD Unavailable Unavailable DOMENICA F MAGALIS MD Unavailable Unavailable DOMENICA F MAGALIS MD Unavailable Unavailable DOMENICA F MAGALIS GARCIA Unavailable Unavailable DOMENICA, F MAGALIS GARCIA Unavailable Unavailable DOMENICA, F MAGALIS GARCIA Unavailable Unavailable DOMENICA, F MAGALIS GARCIA Unavailable Unavailable DOMENICA, F MAGALIS GARCIA Unavailable Unavailable DOMENICA, F MAGALIS GARCIA Unavailable Unavailable DOMENICA, F MAGALIS GARCIA Unavailable Unavailable DOMENICA, F MAGALIS GARCIA Unavailable Unavailable Castilano, Ngozi PA Unavailable Unavailable Castilano, Ngozi PA Unavailable Unavailable Castilano, Ngozi PA Unavailable Unavailable Castilano, Ngozi PA Unavailable Unavailable Castilano, Ngozi PA Unavailable Unavailable Castilano, Ngozi PA Unavailable Unavailable Castilano, Ngozi PA Unavailable Unavailable Castilano, Ngozi PA Unavailable Unavailable Castilano, Ngozi PA Unavailable Unavailable Castilano, Ngozi PA Unavailable Unavailable Castilano, Ngozi PA Unavailable Unavailable Castilano, Ngozi PA Unavailable Unavailable Castilano, Ngozi PA Unavailable Unavailable Castilano, Ngozi PA Unavailable Unavailable Castilano, Ngozi PA Unavailable Unavailable Castilano, Ngozi PA Unavailable Unavailable Castilano, Ngozi PA Unavailable Unavailable Castilano, Ngozi PA Unavailable Unavailable Castilano, Ngozi PA Unavailable Unavailable Castilano, Ngozi PA Unavailable Unavailable Castilano, Ngozi PA Unavailable Unavailable Castilano, Ngozi PA Unavailable Unavailable Castilano, Ngozi PA Unavailable Unavailable Castilano, Ngozi PA Unavailable Unavailable Castilano, Ngozi PA Unavailable Unavailable Castilano, Ngozi PA Unavailable Unavailable Castilano, Ngozi PA Unavailable Unavailable Castilano, Ngozi PA Unavailable Unavailable Castilano, Ngozi PA Unavailable Unavailable Castilano, Ngozi PA Unavailable Unavailable Castilano, Ngozi PA Unavailable Unavailable Castilano, Ngozi PA Unavailable Unavailable Castilano, Ngozi PA Unavailable Unavailable Castilano, Ngozi PA Unavailable Unavailable Castilano, Ngozi PA Unavailable Unavailable Castilano, Ngozi PA Unavailable Unavailable Castilano, Ngozi PA Unavailable Unavailable Castilano, Ngozi PA Unavailable Unavailable Castilano, Ngozi PA Unavailable Unavailable Castilano, Ngozi PA Unavailable Unavailable Castilano, Ngozi PA Unavailable Unavailable Castilano, Ngozi PA Unavailable Unavailable Castilano, Ngozi PA Unavailable Unavailable Castilano, Ngozi PA Unavailable Unavailable Castilano, Ngozi PA Unavailable Unavailable Castilano, Ngozi PA Unavailable Unavailable Castilano, Ngozi PA Unavailable Unavailable Castilano, Ngozi PA Unavailable Unavailable Castilano, Ngozi PA Unavailable Unavailable Castilano, Ngozi PA Unavailable Unavailable Castilano, Ngozi PA Unavailable Unavailable Castilano, Ngozi PA Unavailable Unavailable Castilano, Ngozi PA Unavailable Unavailable Castilano, Ngozi PA Unavailable Unavailable Castilano, Ngozi PA Unavailable Unavailable Castilano, Ngozi PA Unavailable Unavailable Castilano, Ngozi PA Unavailable Unavailable Castilano, Ngozi PA Unavailable Unavailable Castilano, Ngozi PA Unavailable Unavailable Obradovic, Vladan Unavailable Unavailable Obradovic, Vladan Unavailable Unavailable Obradovic, Vladan Unavailable Unavailable Obradovic, Vladan Unavailable Unavailable Obradovic, Vladan Unavailable Unavailable Obradovic, Vladan Unavailable Unavailable Obradovic, Vladan Unavailable Unavailable Obradovic, Vladan Unavailable Unavailable Obradovic, Vladan Unavailable Unavailable Obradovic, Vladan Unavailable Unavailable Obradovic, Vladan Unavailable Unavailable Obradovic, Vladan Unavailable Unavailable Obradovic, Vladan Unavailable Unavailable Obradovic, Vladan Unavailable Unavailable Obradovic, Vladan Unavailable Unavailable Obradovic, Vladan Unavailable Unavailable Obradovic, Vladan Unavailable Unavailable Obradovic, Vladan Unavailable Unavailable Obradovic, Vladan Unavailable Unavailable Obradovic, Vladan Unavailable Unavailable Obradovic, Vladan Unavailable Unavailable Obradovic, Vladan Unavailable Unavailable Obradovic, Vladan Unavailable Unavailable Obradovic, Vladan Unavailable Unavailable Obradovic, Vladan Unavailable Unavailable Obradovic, Vladan Unavailable Unavailable Obradovic, Vladan Unavailable Unavailable Obradovic, Vladan Unavailable Unavailable Obradovic, Vladan Unavailable Unavailable Obradovic, Vladan Unavailable Unavailable Obradovic, Vladan Unavailable Unavailable Obradovic, Vladan Unavailable Unavailable Obradovic, Vladan Unavailable Unavailable Obradovic, Vladan Unavailable Unavailable Obradovic, Vladan Unavailable Unavailable Obradovic, Vladan Unavailable Unavailable Obradovic, Vladan Unavailable Unavailable Obradovic, Vladan Unavailable Unavailable Obradovic, Vladan Unavailable Unavailable Obradovic, Vladan Unavailable Unavailable Obradovic, Vladan Unavailable Unavailable Obradovic, Vladan Unavailable Unavailable Obradovic, Vladan Unavailable Unavailable Obradovic, Vladan Unavailable Unavailable Obradovic, Vladan Unavailable Unavailable Obradovic, Vladan Unavailable Unavailable Obradovic, Vladan Unavailable Unavailable Obradovic, Vladan Unavailable Unavailable Juliet Mcfarland MD Unavailable Unavailable Juliet Mcfarland MD Unavailable Unavailable Juliet Mcfarland MD Unavailable Unavailable Juliet Mcfarland MD Unavailable Unavailable Juliet Mcfarland MD Unavailable Unavailable Juliet Mcfarland MD Unavailable Unavailable Juliet Mcfarland MD Unavailable Unavailable Juliet Mcfarland MD Unavailable Unavailable Juliet Mcfarland MD Unavailable Unavailable Juliet Mcfarland MD Unavailable Unavailable Juliet Mcfarland MD Unavailable Unavailable Juliet Mcfarland MD Unavailable Unavailable Juliet Mcfarland MD Unavailable Unavailable Juliet Mcfarland MD Unavailable Unavailable Juliet Mcfarland MD Unavailable Unavailable Juliet Mcfarland MD Unavailable Unavailable Juliet Mcfarland MD Unavailable Unavailable Juliet Mcfarland MD Unavailable Unavailable Juliet Mcfarland MD Unavailable Unavailable Juliet Mcfarland MD Unavailable Unavailable Juliet Mcfarland MD Unavailable Unavailable Juliet Mcfarland MD Unavailable Unavailable Juliet Mcfarland MD Unavailable Unavailable Juliet Mcfarland MD Unavailable Unavailable Juliet Mcfarland MD Unavailable Unavailable Juliet Mcfarland MD Unavailable Unavailable Juliet Mcfarland MD Unavailable Unavailable Juliet Mcfarland MD Unavailable Unavailable Juliet Mcfarland MD Unavailable Unavailable Juliet Mcfarland MD Unavailable Unavailable Juliet Mcfarland MD Unavailable Unavailable Leann Stinson MD Unavailable Unavailable Leann Stinson MD Unavailable Unavailable Leann Stinson MD Unavailable Unavailable Leann Stinson MD Unavailable Unavailable Leann Stinson MD Unavailable Unavailable Leann Stinson MD Unavailable Unavailable Leann Stinson MD Unavailable Unavailable Leann Stinson MD Unavailable Unavailable Leann Stinson MD Unavailable Unavailable Leann Stinson MD Unavailable Unavailable Leann Stinson MD Unavailable Unavailable Leann Stinson MD Unavailable Unavailable Leann Stinson MD Unavailable Unavailable Leann Stinson MD Unavailable Unavailable Leann Stinson MD Unavailable Unavailable Leann Stinson MD Unavailable Unavailable Lenan Stinson MD Unavailable Unavailable Leann Stinson MD Unavailable Unavailable Leann Stinson MD Unavailable Unavailable Leann Stinson MD Unavailable Unavailable Nizam, Rayees MD Unavailable Unavailable Nizam, Rayees MD Unavailable Unavailable Nizam, Rayees MD Unavailable Unavailable Nizam, Rayees MD Unavailable Unavailable Nizam, Rayees MD Unavailable Unavailable Nizam, Rayees MD Unavailable Unavailable Nizam, Rayees MD Unavailable Unavailable Nizam, Rayees MD Unavailable Unavailable Nizam, Rayees MD Unavailable Unavailable Nizam, Rayees MD Unavailable Unavailable Nizam, Rayees MD Unavailable Unavailable Nizam, Rayees MD Unavailable Unavailable Nizam, Rayees MD Unavailable Unavailable Nizam, Rayees MD Unavailable Unavailable Nizam, Rayees MD Unavailable Unavailable Nizam, Rayees MD Unavailable Unavailable Nizam, Rayees MD Unavailable Unavailable Nizam, Rayjenifer MD Unavailable Unavailable Nizam Rayjenifer MD Unavailable Unavailable Nizam, Rayees MD Unavailable Unavailable Nizam, Rayees MD Unavailable Unavailable Nizam, Rayees MD Unavailable Unavailable Nizam, Rayjenifer MD Unavailable Unavailable Nizam, Rayees MD Unavailable Unavailable Nizam, Rayees MD Unavailable Unavailable Nizam, Rayees MD Unavailable Unavailable Nizam, Rayees MD Unavailable Unavailable Nizam, Rayees MD Unavailable Unavailable Nizam, Rayees MD Unavailable Unavailable Nizam, Rayees MD Unavailable Unavailable Nizam, Rayees MD Unavailable Unavailable Nizam Rayjenifer MD Unavailable Unavailable Nizam Rayjenifer MD Unavailable Unavailable Nizam Rayjenifer MD Unavailable Unavailable Nizam Rayees MD Unavailable Unavailable Nizam Rayees MD Unavailable Unavailable Nizabrayan Rayees MD Unavailable Unavailable Nizam, Rayees MD Unavailable Unavailable Nizam, Rayjenifer MD Unavailable Unavailable Nizam, Rayees MD Unavailable Unavailable Nizam, Rayees MD Unavailable Unavailable Nizam Rayees MD Unavailable Unavailable Nizam, Rayees MD Unavailable Unavailable Nizam, Rayees MD Unavailable Unavailable Nizam, Rayees MD Unavailable Unavailable Nizam, Rayees MD Unavailable Unavailable Nizam Rayjenifer MD Unavailable Unavailable Nizam, Rayees MD Unavailable Unavailable Nizam, Rayjenifer MD Unavailable Unavailable Nizam Rayees MD Unavailable Unavailable Nizam, Rayees MD Unavailable Unavailable Nizam Rayjenifer MD Unavailable Unavailable Nizam, Rayees MD Unavailable Unavailable Nizam, Rayjenifer MD Unavailable Unavailable Nizam, Rayees MD Unavailable Unavailable Nizam, Rayees MD Unavailable Unavailable Nizam, Rayees MD Unavailable Unavailable Re-disclosure Warning The records that you are about to access may contain information from federally-assisted alcohol or drug abuse programs. If such information is present, then the following federally mandated warning applies: This information has been disclosed to you from records protected by federal confidentiality rules (42 CFR part 2). The federal rules prohibit you from making any further disclosure of this information unless further disclosure is expressly permitted by the written consent of the person to whom it pertains or as otherwise permitted by 42 CFR part 2. A general authorization for the release of medical or other information is NOT sufficient for this purpose. The Federal rules restrict any use of the information to criminally investigate or prosecute any alcohol or drug abuse patient.The records that you are about to access may contain highly sensitive health information, the redisclosure of which is protected by Article 27-F of the [facility] Public Health law. If you continue you may have access to information: Regarding HIV / AIDS; Provided by facilities licensed or operated by the [facility] Office of Mental Health; or Provided by the [facility] Office for People With Developmental Disabilities. If such information is present, then the following [facility] mandated warning applies: This information has been disclosed to you from confidential records which are protected by state law. State law prohibits you from making any further disclosure of this information without the specific written consent of the person to whom it pertains, or as otherwise permitted by law. Any unauthorized further disclosure in violation of state law may result in a fine or penitentiary sentence or both. A general authorization for the release of medical or other information is NOT sufficient authorization for further disc losure. Allergies and Adverse Reactions Type Description Substance Reaction Status Data Source(s ) Propensity to adverse reactions NICKEL nickel sulfate Active [facility] Propensity to adverse reactions ACETAMINOPHEN Acetaminophen Active [facility] Propensity to adverse reactions ADHESIVE TAPE Adhesive Tape Rash Low Active [facility] Low Propensity to adverse reactions TYLENOL WITH CODEINE NO. 4 T YLENOL WITH CODEINE NO. 4 ITCHING [facility] Family History Family Member Name Family Member Gender Family Member Status Date o f Status Description Data Source(s) Unknown Male Problem [facility] ([facility]) Encounters Encounter Providers Location Date Indications Data Source(s ) Outpatient Attender: TERESITA THAKUR MD Main office - [facility] 08/04/2021 11:30:00 AM EDT [facility] ([facility]) Outpatient Attender: LUCILA FIERRO NP 08/03/2021 04: 29:00 PM [facility] Outpatient Attender: Tabitha Lovell 06/28/2021 06:00:00 PM [facility] Outpatient Attender: TERESITA THAKUR MD Main office - [facility] 06/27/2021 08:00:00 AM EDT [facility] ([facility]) Emergency Attender: TOMÁS NÚÑEZ PAReferrer : JUDY ORDONEZ MD EMERGENCY ROOM-ER 05/30/2021 08:08:00 PM EDT - 05/31/2021 12:06:00 AM [facility] Patient discharged. Outpatient Attender: TOMÁS NÚÑEZ PAConsultant: [facility] [id number] 05/30/2021 07:11:00 PM [facility] Outpatient Attender: TERESITA THAKUR MD Main office - [facility] n 04/27/2021 02:00:00 PM EDT [facility] ([facility]) Outpatient Attender: Leann Stinson MD [place] [address] 04/27/2021 10 :00:00 AM EDT [facility] ([facility]) Outpatient Attender: LUCILA FIERRO NP 04/25/2021 04: 40:00 PM [facility] Outpatient Attender: Tabitha Lovell 04/03/2021 04:00:00 PM [facility] Outpatient Attender: LUCILA FIERRO NP 03/14/2021 04: 00:00 PM [facility] Outpatient Attender: TE TOSCANO MD Main Office 03/06/2021 02:45:00 PM EDT [facility] ([facility]) Outpatient Attender: Tabitha Simpsonender: TABITHA SHARPE 03/06/2021 11:00:00 AM [facility] Outpatient Attender: LUCILA FIERRO NP 02/14/2021 01: 20:00 PM [facility] Outpatient Attender: Tabitha Simpsonender: TABITHA SHARPE 02/09/2021 01:00:00 PM [facility] Outpatient Attender: Tabitha Simpsonender: TABITHA SHARPE 01/26/2021 01:00:00 PM [facility] Outpatient Attender: LUCILA FIERRO NP 01/20/2021 01: 20:00 PM [facility] Outpatient Attender: Tabitha Simpsonender: TABITHA SHARPE 01/20/2021 10:00:00 AM [facility] Outpatient Attender: Efren MyersAdm itter: Efren CommeyReferrer: Efren Myers MOB-MOB.PAT 01/19/2021 11:12:33 AM [facility] - 01/19/2021 12:19:[address] [facility] Outpatient Admitter: Efren CommeyReferrer: Efren black MOB-MOB.PAT 01/19/2021 10:16:13 AM EST - 01/19/2021 10:16:[address] [facility] Inpatient Attender: Efren CommeyAdmitter: Efren black [id number] 01/10/2021 09:20:21 AM [facility] - 01/24/2021 03:33:00 PM [facility] Patient discharged. Outpatient Attender: LUCILA FIERRO NP 12/22/2020 01: 20:00 PM [facility] Outpatient Attender: Tabitha Simpsonender: TABITHA SHARPE 12/06/2020 02:00:00 PM [facility] Outpatient Attender: LUCILA FIERRO NP 11/30/2020 02: 40:00 PM [facility] Outpatient Attender: TABITHA LOVELL 11/22/2020 02:00:00 PM [facility] Outpatient Attender: TABITHA LOVELL 10/27/2020 02:00:00 PM [facility] Outpatient Attender: MAGALIS METZGER MDConsultant: JUDY JANE MD 10/21/2020 02:58:00 PM EST - 10/21/2020 02:58:00 PM [facility] Outpatient Attender: MAGALIS METZGER MD Family Practice 09/26 02:15:00 PM EST [facility] ([facility]) Outpatient Referrer: Leann Stinson MD MOB-MOB.PAT 2019 11:27:14 AM EST - 10/21/2020 11:27:[address] [facility] Outpatient Attender: LUCILA FIERRO INTERVENTIONAL CARDIOLOGIST 10/07/2020 01: 20:00 PM [facility] Outpatient Attender: TABITHA LOVELL 09/22/2020 03:00:00 PM [facility] Outpatient Attender: MAGALIS METZGER MDA ttender: Marlys Harrison ANP-BCConsultant: JUDY ORDONEZ MD 09/20/2020 08:06:00 AM EDT - 09/20/2020 08:06:00 AM EDT [facility] Outpatient Attender: LUCILA FIERRO INTERVENTIONAL CARDIOLOGIST 09/16/2020 01: 20:00 PM [facility] Outpatient Attender: Ngozi Cummings PA Attender: Leann Stinson MDAdmitter: Leann Stinson MD [id number] 09/15/2020 09:44:32 AM EDT - 10/25/2020 03:11:[address] [facility] Patient discharged. Outpatient Attender: MAGALIS METZGER MD Family Practice 08/25 10:30:00 AM EDT [facility] Outpatient Attender: MAGALIS METZGER MDConsultant: JUDY JANE MD 09/08/2020 10:25:00 AM EDT - 09/08/2020 10:25:00 AM EDT [facility] Outpatient Attender: Rachel Fletcher MDAdmitter: Rachel Fletcher MD E [id number] 08/30/2020 02:05:15 PM EDT [facility] Emergency Attender: GRUPO GROVEConsultant: JUDY ORDONEZ MD 08/29/2020 07:05:00 PM EDT - 08/29/2020 10:20:00 PM EDT [facility] Patient discharged. Outpatient Attender: LUCILA FIERRO NP 08/18/2020 02: 20:00 PM [facility] Outpatient Attender: TABITHA LOVELL 08/09/2020 02:00:00 PM [facility] Outpatient Attender: Leatha Montenegro magdaleno: Leatha McmanusConsultant: JUDY ORDONEZ MD 07/28/2020 04:19:00 PM EDT - 07/28/2020 04:29:00 PM T [facility] Outpatient Attender: LUCILA FIERRO NP 07/28/2020 11: 00:00 AM [facility] Outpatient Attender: Marlys Harrison ANP-BCConsultant: JUDY JANE MD 07/28/2020 08:40:00 AM EDT - 07/28/2020 08:40:00 AM [facility] Outpatient Attender: TE TOSCANO MD Main Office 07/22/2020 01:45:00 PM EDT [facility] ([facility]) Outpatient Attender: TABITHA LOVELL 07/14/2020 11:00:00 AM [facility] Emergency Attender: RENETTA RODRIGUEZ 2015 09:28:00 PM EDT - 06/24/2016 08:31:00 PM [facility] Outpatient Attender: KARSTEN Coopererrer: Arnaud Ortiz 03/28/2015 08:57:00 AM [facility] Medications Medication Brand Name Start Date Product Form Dose Route Admi nistrative Instructions Pharmacy Instructions Status Indications Reaction Description Data Source(s) Acetaminophen 300 MG / Codeine Phosphate 30 MG Oral Ta blet 300-30 mg ACETAMINOPHEN WITH CODEINE 09/05/2021 12:00:00 AM EDT tablet 20 TAKE ONE TABLET BY MOUTH EVERY 6 HOURS NEEDED MAXIMUM DAILY DOSE = 4 TABLETS TAKE ONE TABLET BY MOUTH EVERY 6 HOURS NEEDED MAXIMUM DAILY DOSE = 4 TABLETS SOLD: 09/05/2021 [facility] 10 mg 09/05/2021 12:00:00 AM EDT tablet 30 TAKE ONE TABLET BY MOUTH EVERY DAY TAKE ONE TABLET BY MOUTH EVERY DAY SOLD: 09/05/2021 [facility] 250 mg 09/05/2021 12:00:00 AM EDT tablet 6 TAKE 2 TABLETS BY MOUTH ON THE FIRST DAY THEN TAKE 1 TABLET DAILY FOR 4 DAYS TAKE 2 TABLETS BY MOUTH ON THE FIRST DAY THEN TAKE 1 TABLET DAILY FOR 4 DAYS SOLD: 09/05/2021 [facility] Prednisone 20 MG Oral Tablet Prednisone 08/04/2021 12:00:00 AM EDT ORAL active [facility] ([facility]) Cyclobenzaprine hydrochloride 5 MG Oral Tablet Cyclobenzapri ne HCL 08/04/2021 12:00:00 AM EDT active M [facility] ([facility] 1 ML Ketorolac Tromethamine 30 MG/ML [place] ketorolac (TORADOL) injection 30 mg ketorolac (TORADOL) injection 30 mg 01/24/2021 09:33:31 AM EST 30 mg Intravenous active 30 mg, Intrav enous, Every 6 hours PRN, severe pain (7-10), Starting Sat01/24/21 at 0933, For 2 doses [facility] Medication administered onsite vilazodone hydrochloride 10 MG Oral Tabl et vilazodone HCl (VIIBRYD) tablet 20 mg vilazodone HCl (VIIBRYD) tablet 20 mg 01/24/2021 09:00:00 AM EST 20 mg Oral active 20 mg, Oral, Daily, First do se on Sat01/24/21 at 0900, Post-op [facility] Medication administered onsite 24 HR Amphetamine aspartate 7.5 MG / Amp hetamine Sulfate 7.5 MG / Dextroamphetamine saccharate 7.5 MG / Dextroamphetamine Sulfate 7.5 MG Extended Release Oral Capsule amphetamine-dextroamphetamine (ADDERALL XR) 30 MG 24 hr capsule 30 mg amphetamine-dextroamphetamine (ADDERALL XR) 30 MG 24 hr capsule 30 mg 01/24/2021 09:00:00 AM EST 30 mg Oral active 30 mg, Oral, Every morning, First dose on Sat01/24/21 at 0900, For 7 days, Post-op [facility] Medication administered onsite ondansetron (ZOFRAN-ODT) disintegrating tablet 8 mg 01/24/2021 06:00:00 AM EST 8 mg Oral active [Order 1 Start] Name: ondansetron (ZOFRAN-ODT) disintegrating tablet 8 mg Signed Summary: 8 mg, Oral, Every 6 hours PRN, nausea, Starting Sat01/24/21 at 0600, Post-op [Order 1 End] [Order 2 Start] Name: ondansetron (ZOFRAN) injection 8 mg Signed Summary: 8 mg, Intravenous, Every 6 hours PRN, nausea, severe nausea, Starting Sat01/24/21 at 0600, Post-op [Order 2 End] [facility] Medication administered onsite lactated ringers bolus 1,000 mL [id number] 01/24/2021 06:00:00 AM EST 1000 mL Intravenous completed 1,000 mL , Intravenous, Administer over 2 Hours, Once, Sat01/24/21 at 0600, For 1 dose, Post-op [facility] Medication administered onsite Acetaminophen 325 MG Oral Tablet acetaminophen (TYLENO L) 325 MG tablet 650 mg acetaminophen (TYLENOL) 325 MG tablet 650 mg 01/24/2021 12:00:00 AM EST 650 mg Oral active 650 mg, Or al, Every 4 hours PRN, mild pain (1-3), for mild pain, headache, or temperature > 101, Starting Sat01/24/21 at 0000, Post-op
To begin after routine doses of tylenol.
[facility] Medication administered onsite vilazodone hydrochloride 10 MG Oral Tabl et vilazodone HCl (VIIBRYD) tablet 10 mg vilazodone HCl (VIIBRYD) tablet 10 mg 01/23/2021 09:00:00 PM EST 10 mg Oral active 10 mg, Oral, Nightly, First dose on Sat01/23/21 at 2100, Post-op [facility] Medication administered onsite 60 ACTUAT formoterol fumarate 0.005 MG/A CTUAT / mometasone furoate 0.2 MG/ACTUAT Metered Dose Inhaler mometasone-formoterol (DULERA) 200-5 MCG/ACT inhaler 2 puff mometasone-formoterol (DULERA) 200-5 MCG/ACT inhaler 2 puff 01/23/2021 08:00:00 PM EST 2 {puff} Inhalation active 2 pu ff, Inhalation, 2 times daily, First dose on Sat01/23/21 at 2000, Post-op [facility] Medication administered onsite Insulin Lispro 100 UNT/ML Injectable Elaina ution insulin lispro (HumaLOG) injection 4-16 Units insulin lispro (HumaLOG) injection 4-16 Units 01/24/20 06:00:00 PM EST Subcutaneous active 4-1 6 Units, Subcutaneous, Q6HSS, First dose on Sat01/23/21 at 1800, Post-op
Blood Sugar Units of HumaLOG 145-170 4 units 171-220 6 units 221-270 8 units 271-320 10 units 321-370 12 units 371-420 14 units >420 16 units, Call MD
[facility] Medication administered onsite Amphetamine aspartate 1.25 MG / Amphetam ine Sulfate 1.25 MG / Dextroamphetamine saccharate 1.25 MG / Dextroamphetamine Sulfate 1.25 MG Oral Tablet amphetamine- dextroamphetamine (ADDERALL) tablet 10 mg amphetamine-dextroamphetamine (ADDERALL) tablet 10 mg 01/23/2021 04:30:00 PM EST 10 mg Oral active 10 mg, Oral, Every evening, First dose on Sat01/23/21 at 1630, For 7 days, Post-op [facility] Medication administered onsite Acetaminophen 500 MG Oral Tablet acetaminophen (TYLENO L) tablet 1,000 mg acetaminophen (TYLENOL) tablet 1,000 mg 01/23/2021 03:00:00 PM EST 1000 mg Oral active 1,000 mg, Oral , Every 8 hours, First dose on Sat01/23/21 at 1500, For 48 hours, Post-op [facility] Medication administered onsite Simethicone 80 MG Chewable Tablet simethicone (MYLICON ) chewable tablet 80 mg simethicone (MYLICON) chewable tablet 80 mg 01/23/2021 03:00:00 PM EST 80 mg Oral active 80 mg, Oral, E very 4 hours (scheduled), First dose on Sat01/23/21 at 1500, Post-op [facility] Medication administered onsite Ondansetron 4 MG Disintegrating Oral Tab let ondansetron (ZOFRAN-ODT) disintegrating tablet 8 mg ondansetron (ZOFRAN-ODT) disintegrating tablet 8 mg 01/23/2021 03:00:00 PM EST 8 mg Oral completed 8 mg, Oral, Every 6 hours (scheduled), First dose on Sat01/23/21 at 1500, For 24 hours, Post-op [facility] Medication administered onsite gabapentin 300 MG Oral Capsule gabapentin (NEURONTIN) capsule 300 mg gabapentin (NEURONTIN) capsule 300 mg 01/23/2021 03:00:00 PM EST 300 mg Oral active 300 mg, Oral, 3 times daily, First dose on Sat01/23/21 at 1500, Post-op [facility] Medication administered onsite normal saline flush 0.9 % injection 3 mL [id number] 01/23/2021 02:00:00 PM EST 3 mL Intravenous active 3 mL , Intravenous, QSHIFT, First dose on Sat01/23/21 at 1400, Post-op
Convert to saline lock after discontinuing D5LR IV.
[facility] Medication administered onsite Calcium Chloride 0.001 MEQ/ML / Glucose 50 MG/ML / Potassium Chloride 0.004 MEQ/ML / Sodium Chloride 0.103 MEQ/ML / Sodium Lactate 0.028 MEQ/ML Injectable Solution dextrose 5 % in lactated ringers infusion dextrose 5 % in lactated ringers infusion 01/23/2021 02:00:00 PM EST 150 mL/h Intravenous aborted at 150 mL/hr, 150 mL/hr, Int ravenous, Continuous, Starting Sat01/23/21 at 1400, Post-op
Discontinue IV with adequate PO & convert to saline lock
[facility] Medication administered onsite normal saline flush 0.9 % injection 3 mL [id number] 01/23/2021 02:00:00 PM EST 3 mL Intravenous active 3 mL , Intravenous, Every 8 hours (scheduled), First dose on Sat01/23/21 at 1400, Pre-op
Rapid push positive pressure flushing shall be performed with a 10 cc normal saline syringe to check the PATENCY of a PIV site prior to any infusion therapy initiation unless resistance is met.
[facility] Medication administered onsite heparin (porcine) injection 5,000 Units [id number] 01/24/20 02:00:00 PM EST 5000 U Subcutaneous active 5,000 Units , Subcutaneous, Every 8 hours (relative), First dose on Sat01/23/21 at 1400, Post-op
If platelet count is less than 100,000 or hematocrit is less than 25, or if there is a 5 point decrea se in hematocrit, do not give the dose and call physician/designee.
[facility] Medication administered onsite Metoprolol Tartrate 25 MG Oral Tablet me toprolol tartrate (LOPRESSOR) tablet 25 mg metoprolol tartrate (LOPRESSOR) tablet 25 mg 01/23/2021 02:00:00 PM EST 25 mg Oral active 25 mg, Ora l, 2 times daily, First dose on Sat01/23/21 at 1400, Post-op
Hold Lopressor for SBP < 100 mmHg or HR < 60.
[facility] Medication administered onsite pantoprazole 40 MG Delayed Release Oral Tablet pantoprazole (PROTONIX) EC tablet 40 mg pantoprazole (PROTONIX) EC tablet 40 mg 01/23/2021 02:00:[address] 40 mg Oral active Stress Ulcer Prophylaxis 40 mg, Oral, Daily, Indications: Stress Ulcer Prophylaxis, First dose on Sat01/23/21 at 1400, Post-op [facility] Stress Ulcer Prophylaxis Medication administered onsite Loratadine 10 MG Oral Tablet loratadine (CLARITIN) tab let 10 mg loratadine (CLARITIN) tablet 10 mg 01/23/2021 02:00:00 PM EST 10 mg Oral active 10 mg, Oral, Daily, First dose on Sat01/23/21 at 1400, Post-op [facility] Medication administered onsite metoclopramide (REGLAN) injection 10 mg 01/23/2021 01:35:5 5 PM EST 10 mg Intravenous active [Order 1 Star t] Name: metoclopramide (REGLAN) injection 10 mg Signed Summary: 10 mg, Intravenous, Every 6 hours PRN, nausea, not relieved by ondansetron, Starting Sat01/23/21 at 1335, Post-op
Once in PACU then every 6 hours PRN for nausea
[Order 1 End] [Order 2 Start] Name: metoclopramide (REGLAN) tablet 10 mg Signed Summary: 10 mg, Oral, Every 6 hours PRN, nausea, not relieved by ondansetron, Starting Sat01/23/21 at 1335, Post- op
Once in PACU then every 6 hours PRN for nausea
[Order 2 End] [facility] Medication administered onsite 1 ML Ketorolac Tromethamine 30 MG/ML [place] ketorolac (TORADOL) injection 30 mg ketorolac (TORADOL) injection 30 mg 01/23/2021 01:35:54 PM EST 30 mg Intravenous aborted 30 mg, Intrav enous, Every 8 hours PRN, severe pain (7-10), Starting Sat01/23/21 at 1335, For 3 doses, Post-op [facility] Medication administered onsite Promethazine Hydrochloride 25 MG Oral Ta blet promethazine (PHENERGAN) tablet 12.5 mg promethazine (PHENERGAN) tablet 12.5 mg 01/23/2021 01:35:[address] 12.5 mg Oral active 12.5 mg, O ral, Every 4 hours PRN, nausea, Starting Sat01/23/21 at 1335, Post-op [facility] Medication administered onsite Prochlorperazine 10 MG Oral Tablet prochlorperazine (C OMPAZINE) tablet 10 mg prochlorperazine (COMPAZINE) tablet 10 mg 01/23/2021 01:35:54 PM EST 10 mg Oral active 10 mg, Oral, E very 6 hours PRN, nausea, Starting Sat01/23/21 at 1335, Post-op [facility] Medication administered onsite 0.4 ML Enoxaparin sodium 100 MG/ML Prefi lled Syringe enoxaparin (LOVENOX) syringe 40 mg enoxaparin (LOVENOX) syringe 40 mg 01/23/2021 01:35:53 PM EST 40 mg Subcutaneous completed 40 mg, Subcutaneous, Before Discharge, per protocol, Starting Sat01/23/21 at 1335, For 1 dose, Post-op
At discharge. To be administered by patient or significant other.
[facility] Medication administered onsite Clonidine Hydrochloride 0.1 MG Oral Tablet cloNIDine ( CATAPRES) tablet 0.1 mg cloNIDine (CATAPRES) tablet 0.1 mg 01/23/2021 01:35:53 PM EST 0.1 mg Oral active 0.1 mg, Oral, Every 4 hours PRN, high blood pressure, for SBP > 140 mmHg and/or DBP > 90 mmHg, Starting Sat01/23/21 at 1335, Post-op [facility] Medication administered onsite enalaprilat (VASOTEC) injection 1.25 mg [id number] 01/24/20 01:35:53 PM EST 1.25 mg Intravenous active 1.25 mg, Int ravenous, Every 6 hours PRN, for SBP > 140 mmHg and/or DBP > 90 mmHg, Starting Sat01/23/21 at 1335, Post-op
Mix in 50 mL NS, infuse over 30 minutes via infusion pump. For IVMB on NON-ICU units.
[facility] Medication administered onsite Albuterol 0.83 MG/ML Inhalant Solution a lbuterol (PROVENTIL) nebulizer solution 2.5 mg albuterol (PROVENTIL) nebulizer solution 2.5 mg 2020 01:35:53 PM EST 2.5 mg active 2.5 mg, Nebulization, RT every 4 hours as needed, wheezing, shortness of breath, Starting Sat01/23/21 at 1335, Post-op [facility] Medication administered onsite Insulin Lispro 100 UNT/ML Injectable Elaina ution insulin lispro (HumaLOG) injection 0-16 Units insulin lispro (HumaLOG) injection 0-16 Units 01/24/20 01:00:00 PM EST Subcutaneous aborted 0-1 6 Units, Subcutaneous, Every 1 hour, First dose on 3/1/21 at 1300, PACU (only)
PACU Use Only!! Blood Glucose every 1 hour with following coverage: Blood Sugar &a mp;nbsp; Units of HumaLOG 145 - 170 4 units 171 - 220 6 units 221 - 270 &nbsp ; 8 units 271 - 320 &nbsp ; 10 units 321 - 370 &nbsp ; 12 units 371 - 420 &nb sp; 14 units > 420 call MD 16 units > 200 &nbsp ; Call (May need Lantus dose)
[facility] Medication administered onsite HYDROmorphone (DILAUDID) injection 0.5 mg [id number] 01/23/2021 12:56:14 PM EST 0.5 mg Intravenous aborted 0.5 mg, Intravenous, Every 5 min PRN, severe pain (7-10), Starting Sat01/23/21 at 1256, For 5 doses, PACU (only) [facility] Medication administered onsite fentaNYL Citrate (PF) (SUBLIMAZE) injection 25 mcg [id number] 01/23/2021 12:56:14 PM EST 25 ug Intravenous aborted 25 mcg, Intravenous, Every 5 min PRN, moderate pain (4 to 6), Starting Sat01/23/21 at 1256, For 5 doses, PACU (only) [facility] Medication administered onsite Insulin Glargine 100 UNT/ML Injectable S olution [Lantus] insulin glargine (LANTUS) injection 20 Units insulin glargine (LANTUS) injection 20 Units 01/23/2021 12:41:00 PM EST 20 U Subcutaneous complete d 20 Units, Subcutaneous, Once, Sat01/23/21 at 1300, For 1 dose
Basal Insulin (Lantus) Adjustments based on AM Blood Glucose Blood Glucose&nbs p; Adjustment Less than 70 mg/dl Nursing to initiate hypoglycemia protocol 70 to 100 mg/dl &nb sp; Pharmacy to decrease total daily dose by 20% 101 to 200 mg/dl &nb sp; No Change
[facility] Medication administered onsite Alprazolam 0.25 MG Oral Tablet ALPRAZolam (XANAX) tabl et 0.25 mg ALPRAZolam (XANAX) tablet 0.25 mg 01/23/2021 10:00:00 AM EST 0.25 mg Oral completed 0.25 mg, Oral, call center assistant, Sat01/23/21 at 10 00, For 1 dose, Pre-op [facility] Medication administered onsite Clonidine Hydrochloride 0.1 MG Oral Tablet cloNIDine ( CATAPRES) tablet 0.1 mg cloNIDine (CATAPRES) tablet 0.1 mg 01/23/2021 10:00:00 AM EST 0.1 mg Oral completed 0.1 mg, Oral, call center assistant, Sat 1 at 1000, For 1 dose, Pre-op [facility] Medication administered onsite Albuterol 0.83 MG/ML Inhalant Solution a lbuterol (PROVENTIL) nebulizer solution 2.5 mg albuterol (PROVENTIL) nebulizer solution 2.5 mg 2020 10:00:00 AM EST 2.5 mg completed 2.5 mg , Nebulization, call center assistant, Sat01/23/21 at 1000, For 1 dose, Pre-op
To be started by pre-op unit
[facility] Medication administered onsite Calcium Chloride 0.0014 MEQ/ML / Potassi um Chloride 0.004 MEQ/ML / Sodium Chloride 0.103 MEQ/ML / Sodium Lactate 0.028 MEQ/ML Injectable Solution lactated ringers infusion lactated ringers infusion 01/23/2021 10:00:00 AM EST 100 mL/h Intravenous aborted at 100 m L/hr, 100 mL/hr, Intravenous, Continuous, Starting Sat01/23/21 at 1000, Pre-op
Please place IV on left side if able
[facility] Medication administered onsite heparin (porcine) injection 5,000 Units [id number] 01/24/20 10:00:00 AM EST 5000 U Subcutaneous completed 5,000 Uni ts, Subcutaneous, call center assistant, Sat01/23/21 at 1000, For 1 dose, Pre-op
If platelet count is less than 100,000 or hematocrit is less than 25, or if there is a 5 point decrease in hematocrit, do not give the dose and call physician/designee.
[facility] Medication administered onsite celecoxib 100 MG Oral Capsule celecoxib (CeleBREX) cap logan 200 mg celecoxib (CeleBREX) capsule 200 mg 01/23/2021 10:00:00 AM EST 200 mg Oral completed 200 mg, Oral, call center assistant, Sat 1 at 1000, For 1 dose, Pre-op [facility] Medication administered onsite Tetrahydrocannabinol 2.5 MG Oral Capsule dronabinol (M ARINOL) capsule 5 mg dronabinol (MARINOL) capsule 5 mg 01/23/2021 10:00:00 AM EST 5 mg Oral completed 5 mg, Oral, call center assistant, Sat01/23/21 at 1000, For 1 dose, Pre-op [facility] Medication administered onsite gabapentin 600 MG Oral Tablet gabapentin (NEURONTIN) t ablet 600 mg gabapentin (NEURONTIN) tablet 600 mg 01/23/2021 10:00:00 AM EST 600 mg Oral completed 600 mg, Oral, On [place] l, Sat01/23/21 at 1000, For 1 dose, Pre-op
Hold if age greater than 70 or chronic renal failure/insufficiency
[facility] Medication administered onsite Dexamethasone 4 MG Oral Tablet dexamethasone (DECADRON ) tablet 4 mg dexamethasone (DECADRON) tablet 4 mg 01/23/2021 10:00:00 AM EST 4 mg Oral completed 4 mg, Oral, call center assistant, Sat01/23/21 at 1000, For 1 dose, Pre-op [facility] Medication administered onsite Prochlorperazine 10 MG Oral Tablet prochlorperazine (C OMPAZINE) tablet 10 mg prochlorperazine (COMPAZINE) tablet 10 mg 01/23/2021 10:00:00 AM EST 10 mg Oral completed 10 mg, Oral, O n call, Sat01/23/21 at 1000, For 1 dose, Pre-op [facility] Medication administered onsite normal saline flush 0.9 % injection 3 mL [id number] 01/23/2021 10:00:00 AM EST 3 mL Intravenous aborted 3 mL , Intravenous, Every 8 hours (scheduled), First dose on Sat01/23/21 at 1000, Pre-op
Rapid push positive pressure flushing shall be performed with a 10 cc normal saline syringe to check the PATENCY of a PIV site prior to any infusion therapy initiation unless resistance is met.
[facility] Medication administered onsite scopolamine (TRANSDERM-SCOP) 1.5 MG (Bariatric only) 1 patch [id number] 01/23/2021 08:55:39 AM EST 1 {patch} Transdermal complet ed 1 patch, Transdermal, Administer over 24 Hours, Every 24 hours (relative), First dose on Sat01/23/21 at 1000, For 1 dose, Pre-op
Scopolamine patch applied behind ear. Hold for any of the followin+ yrs old, hx of glaucoma, hx of vertigo, dementia.
[facility] Medication administered onsite Simethicone 80 MG Chewable Tablet simethicone (MYLICON ) 80 MG chewable tablet simethicone (MYLICON) 80 MG chewable tablet 01/23/2021 12:00:00 AM EST 80 mg Oral active Chew 1 tablet (80 mg total) every 6 (six) hours as needed for flatulence (gas pain) [facility] 0.4 ML Enoxaparin sodium 100 MG/ML Prefi lled Syringe enoxaparin (LOVENOX) 40 MG/0.4ML SOLN enoxaparin (LOVENOX) 40 MG/0.4ML SOLN 01/23/2021 12:00:00 AM EST 40 mg Subcutaneous active Inject 0.4 mL (40 mg total) under the skin daily for 10 days After discharge [facility] Magnesium Hydroxide 80 MG/ML Oral Suspen aaron magnesium hydroxide (MILK OF MAGNESIA) 400 MG/5ML suspension magnesium hydroxide (MILK OF MAGNESIA) 4 00 MG/5ML suspension 01/23/2021 12:00:00 AM EST 15 mL Oral active Take 15 mL by mouth 2 (two) times a day as needed for constipation [facility] Vitamin B 12 1 MG Oral Tablet vitamin B-12 (CYANOCOBAL HINES) 1000 MCG tablet vitamin B-12 (CYANOCOBALAMIN) 1000 MCG tablet 01/23/2021 12:00:00 AM EST 1000 ug Oral active Take 1 tablet (1,000 mcg total) by mouth daily [facility] Ondansetron 4 MG Disintegrating Oral Tab let ondansetron (ZOFRAN-ODT) 4 MG disintegrating tablet ondansetron (ZOFRAN-ODT) 4 MG disintegrating tablet 01/23/2021 12:00:00 AM EST 8 mg Oral active Take 2 tablets (8 mg total) by mouth every 8 (eight) hours as needed for nausea [facility] pediatric multivitamin-iron (POLY--ELAINA WITH IRON) 15 MG chewable tablet [id number] 01/23/2021 12:00:00 AM EST 2 {tbl} Oral activ e Chew 2 tablets daily [facility] Acetaminophen 325 MG Oral Tablet acetaminophen (TYLENO L) 325 MG tablet acetaminophen (TYLENOL) 325 MG tablet 01/23/2021 12:00:00 AM EST 65 0 mg Oral active Take 2 tablets (650 mg total) by mouth every 6 (six) hours as needed for pain (fever or headache) [facility] normal saline flush 0.9 % injection 3 mL [id number] 10/25/2020 03:00:00 PM EST 3 mL Intravenous active 3 mL , Intravenous, Every 8 hours (scheduled), First dose on Sat10/25/20 at 1500, PACU (only)
flush per protocol, D/C Main IV fluid if appropriate
[facility] Medication administered onsite 10 ML Atropine Sulfate 0.1 MG/ML Prefill ed Syringe atropine sulfate injection 0.5 mg atropine sulfate injection 0.5 mg 10/25/2020 02:16:10 PM EST 0.5 mg active 0.5 mg, Intrave nous Push, Every 5 min PRN, other, As needed, for heart rate less than 60 BPM and the patient is hemodynamically unstable and/or SBP is less than 90mmHg, Starting Sat10/25/20 at 1416, For 1 day, PACU (only)
Not to exceed a total of 3 mg or 0.04 mg/kg. Max of 6 doses
[facility] Medication administered onsite ondansetron (ZOFRAN) injection 4 mg [id number] 10/25/2020 02:16:1 0 PM EST 4 mg Intravenous active 4 mg, In travenous, Once as needed, nausea, vomiting, Starting Sat10/25/20 at 1416, For 1 dose, PACU (only)
If not given in last 4 hours
[facility] Medication administered onsite Albuterol 0.833 MG/ML / Ipratropium Brom demetrio 0.167 MG/ML Inhalant Solution ipratropium-albuterol (DUO-NEB) 0.5-2.5 mg/mL nebulizer solution 3 mL ipratropium-albuterol (DUO-NEB) 0.5-2.5 mg/mL nebulizer solution 3 mL 10/25/2020 02:16:10 PM EST 3 mL Inhalation active 3 mL, Inhalation, Once as needed, shortness of breath, Starting Sat10/25/20 at 1416, For 1 dose, PACU (only) [facility] Medication administered onsite valacyclovir 500 MG Oral Tablet [Valtrex] Valtrex 10/21/2020 1 2:00:00 AM EST ORAL active [facility] ([facility]) 60 ACTUAT Budesonide 0.16 MG/ACTUAT / fo rmoterol fumarate 0.0045 MG/ACTUAT Metered Dose Inhaler [Symbicort] Symbicort 07/22/2020 12:00:00 AM EDT RESPIRATORY active [facility] ( [facility]) 60 ACTUAT Fluticasone propionate 0.25 MG /ACTUAT / salmeterol 0.05 MG/ACTUAT Dry Powder Inhaler Fluticasone Propionate/Salmeterol Diskus 04/27/2020 12 :00:00 AM EDT completed [facility] ([facility]) nystatin (MYCOSTATIN) 385360 UNIT/ML suspension [id number] U Oral aborted Take 500,000 Units by jan th 4 (four) times a day [facility] Levofloxacin 500 MG Oral Tablet levofloxacin (LEVAQUIN ) 500 MG tablet levofloxacin (LEVAQUIN) 500 MG tablet 500 mg Oral aborted Take 500 mg by mouth daily [facility] Acetaminophen 500 MG Oral Tablet acetaminophen (TYLENO L) 500 MG tablet acetaminophen (TYLENOL) 500 MG tablet 500 mg Oral aborted Take 500 mg by mouth daily as needed for pain [facility] Omeprazole 20 MG Delayed Release Oral Ca psule omeprazole (PRILOSEC) 20 MG capsule omeprazole (PRILOSEC) 20 MG capsule 20 mg Oral aborted Take 20 mg by mouth daily [facility] Insurance Providers Payer name Policy type / Coverage type Policy ID Covered democrat ID Covered democrat's relationship to salas Policy Salas Plan Information [facility] U [id number] [facility] [id number] [facility] MEDICAID [id number] S [id number] [facility] I [id number] Self [id number] [facility] MEDICAID [id number] xxxxxxxxx [id number] [facility] [id number] Mayra [id number] [facility] MEDICAID [id number] Mayra [id number] [facility] MEDICAID [id number] [id number] INSURANCE COVID-19 COVID Mayra C OVID INSURANCE COVID-19 COVID Mayra C OVID INSURANCE COVID-19 [id number] REGIONAL CLAIMS LOU-O/P [id number] 01 [id number] [facility] P [id number] P [id number] [facility] [id number] [facility] MEDICAID [place] H[place] UNAVAILABLE S UNAVAILABLE AMERICHOICE UNHC XIX HMO -RECURRING [id number] 18 [id number] AMERICHOICE UNHC XIX HMO -RECURRING [id number] [facility](MCAID) O [id number] S [id number] [facility] [id number] UNHC COMMUNITY PLAN MCDO [id number] SP [id number] [facility](MCAID) O [id number] S [id number] [facility] Communty Plan Medicaid [id number] Self [id number] [facility] Communty Plan Medicaid [id number] Self [id number] [facility] Communty Plan Medicaid [id number] Self [id number] [facility] Communty Plan Medicaid [id number] Self [id number] [facility] Communty Plan Medicaid [id number] Self [id number] [employer] COMMUNITY PLAN MCDO [id number] SP [id number] [facility] Communty Plan Medicaid [id number] Self [id number] [facility] [id number] S [id number] [facility] MEDICAID [id number] S [id number] [facility] MEDICAID [id number] S [id number] [facility] COMMUNTY PLAN [id number] UNHC COMMUNITY PLAN XIX [id number] 18 [id number] [facility] [id number] S [id number] [facility] [id number] S [id number] [facility] [id number] S [id number] [facility] [id number] Problems, Conditions, and Diagnoses Code Display Name Description Problem Type Effective Dates Data Source(s) F41.9 Anxiety disorder, unspecified ANXIETY DISORDER, UNSPEC IFIED Diagnosis 08/03/2021 04:29:00 PM [facility] F90.9 Attention-deficit hyperactivity disorder , unspecified type ATTENTION- DEFICIT HYPERACTIVITY DISORDER, UNSPECIF Diagnosis 08/03/2021 04:29:00 PM [facility] F33.0 Major depressive disorder, recurrent, mi ld MAJOR DEPRESSIVE DISORDER, RECURRENT, MILD Diagnosis 08/03/2021 04:29:00 PM [facility] Z79.899 Other detention (current) drug therapy O THER JAIL (CURRENT) DRUG THERAPY Diagnosis 05/30/2021 08:08:00 PM [facility] F17.210 Nicotine dependence, cigarettes, uncompl icated NICOTINE DEPENDENCE, CIGARETTES, UNCOMPLICATED Diagnosis 05/30/2021 08:08:00 PM [facility] E83.42 Hypomagnesemia HYPOMAGNESEMIA Diagnosis 05/30/2021 08:08: 00 PM [facility] A04.72 ENTEROCOLITIS D/T CLOSTRIDIUM DIFFICILE, NOT SPCF ENTEROCOLITIS D/T CLOSTRIDIUM DIFFICILE, NOT SPCF Diagnosis 05/30/2021 08:08:00 PM [facility] A09 Infectious gastroenteritis and colitis, unspecified INFECTIOUS GASTROENTERITIS AND COLITIS, UNSPECIFIE Diagnosis 05/30/2021 08:08:00 PM [facility] R10.10 Upper abdominal pain, unspecified UPPER ABDOMINA L PAIN, UNSPECIFIED Diagnosis 05/30/2021 08:08:00 PM [facility] E66.01 Morbid (severe) obesity due to excess ca lories Morbid (severe) obesity due to excess ca Diagnosis 01/23/2021 07:57:[address] [facility] R40.0 Somnolence SOMNOLENCE Diagnosis 01/20/2021 01:20:00 PM [facility] U07.1 COVID-19 COVID-19 Diagnosis 01/19/2021 10:16:13 AM [facility] Z712 Person consulting for explanation of exa mination or test findings Person consulting for explanation of examination or test findings Diagnosis 10/21/2020 02:58:00 PM [facility] [id number] Encounter for gynecological examination (general) (routine) without abnormal findings Encounter for gynecological examination (general) (routine) without abnormal findings Diagnosis 09/20/2020 08:06:00 AM EDT [facility] Z853 Personal history of malignant neoplasm o f breast Personal history of malignant neoplasm of breast Diagnosis 09/08/2020 10:25:00 AM EDT [facility] 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 Other computer terminal operator (current) drug therapy O ther computer terminal operator (current) drug therapy Diagnosis 08/29/2020 07:05:00 PM EDT [facility] [id number] Nicotine dependence, cigarettes, uncompl icated Nicotine dependence, cigarettes, uncomplicated Diagnosis 08/29/2020 07:05:00 PM T [facility] [id number] Unspecified ovarian cyst, left side Unspecified ovarian cyst, left side Diagnosis 08/29/2020 07:05:00 PM T [facility] R102 Pelvic and perineal pain Pelvic and perineal pain Diag nosis 08/29/2020 07:05:00 PM [facility] Z8639 Personal history of other endocrine, nut ritional and metabolic disease Personal history of other endocrine, nutritional and metabolic disease Diagnosis 07/28/2020 08:40:00 AM T [facility] E66.01 Morbid obesity Morbid obesity Problem 04/27/2021 12:00: 00 AM EDT [facility] ([facility]) K21.9 Gastroesophageal reflux disease Gastroesophageal reflu x disease Problem 04/27/2021 12:00:00 AM EDT [facility] ([facility] F98.8 ADD (attention deficit disorder) ADD (attention deficit disorder) [id number] 01/23/2021 12:00:00 AM [facility] Z91.09 Environmental allergies Environmental allergies [id number] 01/23/2021 12:00:[address] [facility] J45.909 Asthma Asthma [id number] 01/23/2021 12:00:00 AM [facility] K21.9 GERD (gastroesophageal reflux disease) G ERD (gastroesophageal reflux disease) [id number] 01/23/2021 12:00:[address] [facility] G47.30 Sleep apnea Sleep apnea [id number] 01/23/2021 12:00:[address] [facility] E66.01 Morbid obesity with BMI of 40.0-44.9, ad ult Morbid obesity with BMI of 40.0-44.9, adult [id number] 01/23/2021 12:00:[address] [facility] J45.40 Uncomplicated moderate persistent asthma Uncomplicated moderate persistent asthma Problem 07/22/2020 12:00:00 AM EDT [facility] ([facility]) Surgeries/Procedures Procedure Description Date Indications Data Source(s) OFFICE OUTPATIENT VISIT 25 MINUTES 08/04/2021 12:00:00 AM EDT [facility] ([facility], ) OFFICE OUTPATIENT VISIT 25 MINUTES 06/27/2021 12:00:00 AM EDT [facility] ([facility], ) Needle electromyography, each extremity, with related paraspinal areas, when performed, done with nerve conduction, amplitude and latency/velocity study; complete, five or more muscles studied, innervated by three or more nerves or four or more spinal levels (list separately in addition to the code for primary procedure). 05/22/2021 12:00:00 AM EDT MED[facility] T ([facility], ) Needle electromyography, each extremity, with related paraspinal areas, when performed, done with nerve conduction, amplitude and latency/velocity study; complete, five or more muscles studied, innervated by three or more nerves or four or more spinal levels (list separately in addition to the code for primary procedure). 05/22/2021 12:00:00 AM EDT [facility] T ([facility], ) Nerve Conduction 11-12 Studies 05/22/2021 12:00:00 AM EDT [facility] ([facility], ) NON-INVASIVE PHYSIOLOGIC STUDY EXTREMITY 3 LEVLS 05/19 12:00:00 AM EDT [facility] ([facility], ) TSTG ANS FUNCJ CARDIOVAGAL INNERVAJ PARASYMP 12:00:00 AM EDT [facility] ([facility], ) TESTING AUTONOMIC NERVOUS SYSTEM FUNCTION 05/19/2021 1 2:00:00 AM EDT [facility] ([facility], ) Needle electromyography, each extremity, with related paraspinal areas, when performed, done with nerve conduction, amplitude and latency/velocity study; complete, five or more muscles studied, innervated by three or more nerves or four or more spinal levels (list separately in addition to the code for primary procedure). 05/15/2021 12:00:00 AM EDT [facility] T ([facility], ) Needle electromyography, each extremity, with related paraspinal areas, when performed, done with nerve conduction, amplitude and latency/velocity study; complete, five or more muscles studied, innervated by three or more nerves or four or more spinal levels (list separately in addition to the code for primary procedure). 05/15/2021 12:00:00 AM EDT [facility] T ([facility], ) Nerve Conduction 9-10 Studies 05/15/2021 12:00:00 AM E DT [facility] ([facility], ) OFFICE OUTPATIENT NEW 45 MINUTES 04/27/2021 12:00:00 A M EDT [facility] ([facility], ) OFFICE OUTPATIENT VISIT 15 MINUTES 04/27/2021 12:00:00 AM EDT [facility] ([facility]) BRNCDILAT RSPSE SPMTRY PRE&POST-BRNCDILAT ADMN 021 12:00:00 AM EDT [facility] ([facility]) GLUC BLD GLUC MNTR DEV CLEARED FDA SPEC HOME USE <td>P OCT GLUCOSE</td><td>Routine</td><td>01/24/2021 11:36 AM EST</td><td></td><td> </td> 01/24/2021 04:36:00 PM EST [facility] GLUC BLD GLUC MNTR DEV CLEARED FDA SPEC HOME USE <td>P OCT GLUCOSE</td><td>Routine</td><td>01/24/2021 5:53 AM EST</td><td></td><td> </td> 01/24/2021 10:53:00 AM EST [facility] GLUC BLD GLUC MNTR DEV CLEARED FDA SPEC HOME USE <td>P OCT GLUCOSE</td><td>Routine</td><td>01/24/2021 12:04 AM EST</td><td></td><td> </td> 01/24/2021 05:04:00 AM EST [facility] GLUC BLD GLUC MNTR DEV CLEARED FDA SPEC HOME USE <td>P OCT GLUCOSE</td><td>Routine</td><td>01/23/2021 5:59 PM EST</td><td></td><td> </td> 01/23/2021 10:59:00 PM EST [facility] GLUC BLD GLUC MNTR DEV CLEARED FDA SPEC HOME USE <td>P OCT GLUCOSE</td><td>Routine</td><td>01/23/2021 12:26 PM EST</td><td></td><td> </td> 01/23/2021 05:26:00 PM EST [facility] LAPS GSTR RSTCV PX W/BYP YENNIFER-EN-Y LIMB <150 CM <td>CR EATION, GASTRIC BYPASS, YENNIFER-EN-Y, LAPAROSCOPIC, WITH SLEEVE GASTRECTOMY IF INDICATED, WITH LIVER BIOPSY IF INDICATED, WITH HIATAL HERNIA REPAIR IF INDICATED, WITH LAPAROTOMY IF INDICATED</td><td></td><td>01/23/2021 10:10 AM EST</td><td> Morbid obesity Hepatomegaly Fatty liver</td><td></td> 01/23/2021 03:10:00 PM EST - 01/23/2021 05:47:00 PM EST Fatty liverHepatomegalyMorbid obesity [facility] Fatty liver Hepatomegaly Morbid obesity GLUC BLD GLUC MNTR DEV CLEARED FDA SPEC HOME USE <td>P OCT GLUCOSE</td><td>Routine</td><td>01/23/2021 9:47 AM EST</td><td></td><td> </td> 01/23/2021 02:47:00 PM EST [facility] POCT I-STAT BETA HCG <td>POCT I-STAT BETA HCG</td ><td>Routine</td><td>01/23/2021 9:40 AM EST</td><td></td><td> </td> 01/23/2021 02:40:00 PM EST [facility] ECG ROUTINE ECG W/LEAST 12 LDS TRCG ONLY W/O I&R <td>E CG 12- LEAD</td><td>Routine</td><td>01/19/2021 12:14 PM EST</td><td> Morbid obesity</td><td></td> 01/19/2021 05:14:21 PM EST Morbid obesity [facility] Morbid obesity BLOOD COUNT COMPLETE AUTOMATED <td>CBC</td><td>Routine </td><td>01/19/2021 12:10 PM EST</td><td> Morbid obesity</td><td> </td> 01/19/2021 05:10:00 PM EST Morbid obesity [facility] Morbid obesity BLOOD TYPING ABO <td>TYPE AND SCREEN</td><td> Routine</td><td>01/19/2021 12:10 PM EST</td><td> Morbid obesity</td><td> </td> 01/19/2021 05:10:00 PM EST Morbid obesity [facility] Morbid obesity THYROID STIMULATING HORMONE TSH <td>TSH</td><td>Routin e</td><td>01/19/2021 12:10 PM EST</td><td> Morbid obesity</td><td> </td> 01/19/2021 05:10:00 PM EST Morbid obesity [facility] Morbid obesity HEMOGLOBIN GLYCOSYLATED A1C <td>HEMOGLOBIN A1C</td><td>Routine</td><td>01/19/2021 12:10 PM EST</td><td> Morbid obesity</td><td> </td> 01/19/2021 05:10:00 PM EST Morbid obesity [facility] Morbid obesity COMPREHENSIVE METABOLIC PANEL <td>COMPREHENSIVE METABO LIC PANEL</td><td>Routine</td><td>01/19/2021 12:10 PM EST</td><td> Morbid obesity</td><td> </td> 01/19/2021 05:10:00 PM EST Morbid obesity [facility] Morbid obesity UPPER NDSC BIOPSY SINGLE/MULTIPLE 10/25/2020 12:00:00 AM EST [facility] ([facility]) BRNCDILAT RSPSE SPMTRY PRE&POST-BRNCDILAT ADMN 020 12:00:00 AM EDT [facility] ([facility]) Results ID Date Data Source [id number] 05/31/2021 02:28:[address] [facility]: KATALINA TERAN Soheila Diallo eport - Physicians/[facility].VisitID: [id number] [place] [address] [phone], FRegistration Date/Time: 05/30/2021 18:37 Weight:69.3 kg (S). Height/Length:61.5 inches (S). BMI:28.4 PAST HISTORYProblems:Anxiety Reaction.ADHD - Attention Deficit Hyperactivity Disorder.Breast Cancer.Apthous ulcers.PTSD.Prosthetic eye.Herpetic Gingivostomatitis. Additional Surgeries:Breast Augmentation [03/29/2016]. (Expanders placed and liop)Breast Biopsy.Cataract Surgery.Ectopic removal.Endometrial biopsy.Eye prothesis. (Right eye)Gastric bypass.Mastectomy. Medications:Calcium Citrate + D3 Maximum Oral, daily, last dose yesterday.Potassium Chloride Oral 100mcg, daily, last dose 05/28/21.Vitamin B-12 Oral, daily, last dose yesterday.Multivitamins Oral, daily, last dose yesterday.Vybrid 20 mg, as needed, last dose yesterday.Vybrid 10 mg, daily every AM, last dose today.Adderall Oral 10 mg, daily as needed, last dose unsure.Adderall XR Oral 30 mg, daily, last dose yesteray. Allergies:No Known Drug Allergy. FAMILY HISTORYNegative - denies family medical history. INSTRUCTIONSYour Current Medications: Your current home medications have been reviewed. CONTINUE TAKING THE FOLLOWING MEDICATIONS:Adderall Oral : 10 mg daily, Last: unsure, prn. Adderall XR Oral : 30 mg daily, Last: yesteray. Calcium Citrate + D3 Maximum Oral : daily, Last: yesterday. Multivitamins Oral : daily, Last: yesterday. Potassium Chloride Oral : 100mcg daily, Last: 05/28/21. Vitamin B-12 Oral : daily, Last: yesterday. Vybrid* : 20 mg, Last: yesterday, prn. Vybrid* : 10 mg daily, Last: today, every AM. (Electronically signed by Oralia Blue 05/31/2021 02:28) [place] KATALINA TERAN VisitID: [id number] Date: 05/30/2021 05/31/2021 14:25Patient called ED stating that the prescription she was given last night is not covered by her insurance, she is asking for a new prescription to be called in for her. Head Operator stated that the provider who examined her last night was not currently here nor here tonight. Before telegraphic typewriter installer could elaborate further, she states "don't you have a hospitalist, why can't the hospitalist prescribe me something. I can't get in to my regular doctor either". She then hung up. (Electronically signed by Patience Hastings R.N. 05/31/2021 14:25) Name Value Range Interpretation Code Description Data Julisa rce(s) Supporting Document(s) ID Date Data Source [id number] 05/31/2021 07:21:[address] [facility] DATE OF EXAMINATION: 05/30/2021 20:07 EDT ABD/PEL WITH ORAL AND IV HISTORY: Acute periumbilical pain TECHNIQUE: This CT exam was performed using the following dose reduction techniques:automated exposure control, adjustment of mA and/or kV according to thepatient's size, and use of iterative reconstruction technique. Standard contiguous axial spiral imaging was obtained from the dome of thediaphragms through the symphysis pubis with oral contrast and with intravenouscontrast administration and with coronal reformatting. FINDINGS: Mild fatty infiltration to the liver suggested without focal hepatic lesion. Spleen, pancreas, gallbladder, bilateral adrenal glands and kidneys areessentially normal. There is a 1.8 cm low-density lesion in the right kidneysuggesting cyst. Patient is status post gastric bypass surgery. Mild elements of mucosalthickening involving small bowel and possibly portions of large bowel raises thepossibility of enterocolitis. There is no evidence for bowel obstruction orperforation. Few scattered colonic diverticula noted without acutediverticulitis. Pelvis demonstrates normal bladder and age-appropriate uterus/adnexa. Smallamount of pelvic free fluid is nonspecific and possibly physiologic. No significant ascites. No free air. No adenopathy. Abdominal aorta withoutaneurysm or dissection. Musculoskeletal structures are intact. Lung bases areclear. IMPRESSION:1. Findings suggesting a mild enterocolitis. No associated bowel obstruction,free fluid or drainable collection/abscess.2. Hepatic steatosis.3. Right renal hypodensity likely cyst may be followed by ultrasound ifnecessary. Electronically signed in [id number] by: Uvaldo Bates M.D. 05/31/2021 7:15 EDT Name Value Range Interpretation Code Description Data Julisa rce(s) Supporting Document(s) ID Date Data Source [id number] 05/31/2021 02:31:00 AM EDT [facility] Patient: KATALINA TERAN Soheila R eport - [facility].VisitID: [id number] [place] [address] [phone], [facility] Date/Time: 05/30/2021 18:37 Weight:69.3 kg (S). Height/Length:61.5 inches (S). BMI:28.4 PAST HISTORYProblems:Anxiety Reaction.ADHD - Attention Deficit Hyperactivity Disorder.Breast Cancer.Apthous ulcers.PTSD.Prosthetic eye.Herpetic Gingivostomatitis. Additional Surgeries:Breast Augmentation [03/29/2016]. (Expanders placed and liop)Breast Biopsy.Cataract Surgery.Ectopic removal.Endometrial biopsy.Eye prothesis. (Right eye)Gastric bypass.Mastectomy. Medications:Calcium Citrate + D3 Maximum Oral, daily, last dose yesterday.Potassium Chloride Oral 100mcg, daily, last dose 05/28/21.Vitamin B-12 Oral, daily, last dose yesterday.Multivitamins Oral, daily, last dose yesterday.Vybrid 20 mg, as needed, last dose yesterday.Vybrid 10 mg, daily every AM, last dose today.Adderall Oral 10 mg, daily as needed, last dose unsure.Adderall XR Oral 30 mg, daily, last dose yesteray. Allergies:No Known Drug Allergy. FAMILY HISTORYNegative - denies family medical history. INSTRUCTIONSYour Current Medications: Your current home medications have been reviewed. CONTINUE TAKING THE FOLLOWING MEDICATIONS:Adderall Oral : 10 mg daily, Last: unsure, prn. Adderall XR Oral : 30 mg daily, Last: yesteray. Calcium Citrate + D3 Maximum Oral : daily, Last: yesterday. Multivitamins Oral : daily, Last: yesterday. Potassium Chloride Oral : 100mcg daily, Last: 05/28/21. Vitamin B-12 Oral : daily, Last: yesterday. Vybrid* : 20 mg, Last: yesterday, prn. Vybrid* : 10 mg daily, Last: today, every AM. (Electronically signed by Oralia Blue 05/31/2021 02:28) Name Value Range Interpretation Code Description Data Julisa nguyen(s) Supporting Document(s) ID Date Data Source [id number] 05/30/2021 09:44:00 PM [facility] TSYSORDER [id number] Name Value Range Interpretation Code Description Data Julisa nguyen(s) Supporting Document(s) Campylobacter Not Detected Detected [facility] Clostridium difficile toxin AB DETECTED Detected Not [facility] This device is not intented to monitor o r guide treatmentfor C. difficile infection.Due to the high asymptomatic carriage rates,especiallyin young children,the clinical relevance of the detectionof toxigenic C. difficile from stool should be consideredin the context of other clinical findings,patient age,and risk factors including hospitalization and antibioticexposure. Plesiomonas shigelloides Not Detected Detected Not [facility] Salmonella Not Detected Detected Not [facility] Vibrio Not Detected Detected Not [facility] Vibrio cholerae Not Detected Detected Not [facility] Yersinia enterocolitica Not Detected Detected Not [facility] Enteroaggregative E. coli Not Detected Detected Not [facility] Enteropathogenic E. coli DETECTED Detected Not [facility] Enterotoxigenic E. coli Not Detected Detected Not [facility] Shiga-like toxin-prod E. coli Not Detected Detected Not [facility] Shigella/Enteroinvasive E coli Not Detected Detected Not [facility] Cryptosporidium Not Detected Detected Not [facility] Cyclospora cayetanensis Not Detected Detected Not [facility] Entamoeba histolytica Not Detected Detected Not [facility] Giardia Lamblia Not Detected Detected Not [facility] Adenovirus F 40/41 Not Detected Detected Not [facility] Astrovirus Not Detected Detected Not [facility] Norovirus GI/GII Not Detected Detected Not [facility] Rotavirus A Not Detected Detected [facility] Sapovirus Not Detected Detected Not [facility] The FilmArray GI Panel is indicated as a n aid in thediagnosis of specific agents of gatrointestinal illness andresults are meant to be used in conjonction with otherclinical,laboratory and epidemiological data. Positiveresults do not rule out co-infection with organisms notincluded in the FilmArray GI Panel. The agent detected maynot be the definite cause of the disease. Concomitantculture is necessary for organism recovery and furthertyping of bacterial agents.The above results have been determined by using the [employer] FilmArray system.FilmArray is an automated in vitro diagnostic system thatutilizes nested multiplex Polymerase Chain Reaction (PCR)and high-resolution melting analysis to detect and identifymultiple nucleic acid targets from clinical specimens. ID Date Data Source [id number] 06/01/2021 04:05:00 PM EDT [facility] Name Value Range Interpretation Code Description Data Julisa rce(s) Supporting Document(s) H. pylori, IgG Abs 0.12 Index Value 0.00-0.79 [facility] Negative <0.80 Equivocal 0.80 - 0.89 Positive >0.89 H. pylori, IgA Abs 0.0-8.9 [facility] Negative <9.0 Equivocal 9.0 - 11.0 Positive >11.0 H pylori, IgM Abs 0.0-8.9 [facility] Negative <9.0 Equivocal 9.0 - 11.0 Positive >11.0 This test was developed and its performance characteristicsdetermined by [facility]. It has not been cleared or approvedby the Food and Drug Administration. ID Date Data Source [id number] 06/01/2021 04:10:00 PM EDT [facility] Name Value Range Interpretation Code Description Data Julisa rce(s) Supporting Document(s) H. PYLORI, IGM ABS <9.0 units 0.0-8.9 [facility] Negative <9.0 Equivocal 9.0 - 11.0 Positive > 11.0This test was developed and its performance characteristicsdetermined by [facility]. It has not been cleared orapproved by the Food and Drug Administration.Performed at: RN - [facility] [id number] Director: Reina Mehta MD, Phone: [phone] H. PYLORI, IGG ABS 0.12 0.00-0.79 [facility] Result Units: Index Value Negative <0.80 Equivocal 0.80 - 0.89 Positive >0.89 H. PYLORI, IGA ABS <9.0 units 0.0-8.9 [facility] Negative <9.0 Equivocal 9.0 - 11.0 Positive >11.0 ID Date Data Source [id number] 05/30/2021 07:40:00 PM EDT [facility] TSYSORDER [id number] Name Value Range Interpretation Code Description Data Julisa rce(s) Supporting Document(s) URINE RBC 1-3 /hpf 0-3 [facility] URINE WBC 5-10 /hpf 0-5 H [facility] URINE EPITHELIAL CELLS 3+ /hpf 0 [facility] URINE BACTERIA 4+ NONE SEEN H [facility] ID Date Data Source [id number] 05/30/2021 07:24:[address] [facility] TSYSORDER [id number] Name Value Range Interpretation Code Description Data Julisa rce(s) Supporting Document(s) URINE COLOR. [facility] URINE APPEARANCE CLOUDY [facility] URINE GLUCOSE (UA) NEGATIVE mg/dL NEGATIVE [facility] URINE BILIRUBIN 1+(SMALL) NEGATIVE [facility] URINE KETONE NEGATIVE mg/dL [facility]GATIVE [facility] SPECIFIC GRAVITY,URINE 1.025 1.005-1.030 [facility] URINE BLOOD 3+(LARGE) NEGATIVE [facility] PH,URINE 6.0 5.0-9.0 [facility] URINE PROTEIN 1+(30) mg/dL NEGATIVE [facility] URINE UROBILINOGEN NORMAL(0.2-1) mg/dL 0-1 [facility] URINE NITRATE POSITIVE NEGATIVE [facility] URINE CULTURE ORDERED URINE LEUKOCYTE ESTERASE NEGATIVE NEGATIVE [facility] ID Date Data Source [id number] 05/30/2021 07:37:00 PM [facility] TSYSORDER [id number] Name Value Range Interpretation Code Description Data Julisa rce(s) Supporting Document(s) MAGNESIUM 1.2 mg/dL 1.8-2.4 [facility] ID Date Data Source [id number] 05/30/2021 07:37:00 PM [facility] TSYSORDER [id number] Name Value Range Interpretation Code Description Data Julisa rce(s) Supporting Document(s) GLUCOSE 101 mg/dL 74-106 [facility] BLOOD UREA NITROGEN 7 mg/dL 7-18 [facility] CREATININE 0.72 mg/dL 0.6-1.0 [facility] SODIUM 142 mmol/L 136-145 [facility] POTASSIUM 3.5 mmol/L 3.5-5.1 [facility] CHLORIDE 102 mmol/L 98-107 [facility] CO2 31 mmol/L 21-32 [facility] CALCIUM 8.5 mg/dL 8.5-10.1 [facility] ANION GAP 9.0 mmol/L 5-12 [facility] GLOMERULAR FILTRATION RATE >90 mL/min [facility] GFR IS CALCULATED IN mL/min/1.73m2 CHRIS L FUNCTION: >90MILDLY DECREASED: 60-89MILDY TO MODERATELY DECREASED: 45-59 MODERATELY TO SEVERELY DECREASED: 30-44SEVERELY DECREASED: 15-29RENAL FAILURE: <15 AST 74 U/L 15-37 H [facility] ALT 111 U/L 12-78 H [facility] ALKALINE PHOSPHATASE 100 U/L 46-116 [facility] TOTAL BILIRUBIN 1.1 mg/dL 0.2-1.0 H [facility] TOTAL PROTEIN 7.4 g/dl 6.4-8.2 [facility] ALBUMIN 3.7 gm/dL 3.4-5.0 [facility] ID Date Data Source [id number] 05/30/2021 07:37:00 PM EDT [facility] TSYSORDER [id number] Name Value Range Interpretation Code Description Data Julisa rce(s) Supporting Document(s) LIPASE 56 U/L 73-393 L [facility] ID Date Data Source [id number] 05/30/2021 07:26:00 PM EDT [facility] TSYSORDER [id number] Name Value Range Interpretation Code Description Data Julisa rce(s) Supporting Document(s) WHITE BLOOD COUNT 8.3 K/mm3 4.0-10.0 [facility] al RED BLOOD COUNT 4.55 M/mm3 4.00-5.50 [facility] HEMOGLOBIN 15.3 gm/dL 12.0-16.0 [facility] HEMATOCRIT 44.9 % 36.0-48.8 [facility] MEAN CELL VOLUME 98.7 fl 80-96 H [facility] MEAN CORPUSCULAR HEMOGLOBIN 33.6 pg 27.0-31.0 H [facility] MEAN CORPUSCULAR HGB CONC 34.1 g/dl 32.0-36.0 [facility] RED CELL DISTRIBUTION WIDTH 12.4 % 10.0-14.5 [facility] PLATELET COUNT 254 K/mm3 172-450 [facility] MEAN PLATELET VOLUME 8.4 fl 9.0-13.0 [facility] % 85.1 % 50-80.0 H [facility] IG% 0.1 % 0.0-0.2 [facility] LYMPH % 7.2 % 25.0-50.0 L [facility] MONO % 6.1 % 2.0-10.0 [facility] EOS % 1.3 % 0-5.0 [facility] BASO % 0.2 % 0.0-2.0 [facility] GRAN # 7.0 K/mm3 2.0-8.00 [facility] IG# 0.0 K/mm3 0.0-0.2 [facility] LYMPH # 0.6 K/mm3 1.0-5.0 L [facility] MONO # 0.5 K/mm3 0.10-1.20 [facility] EOS # 0.1 K/mm3 0.0-0.5 [facility] BASO # 0.0 K/mm3 0.0-0.2 [facility] ID Date Data Source [id number] 05/30/2021 07:16:00 PM EDT [facility] TSYSORDER [id number] Name Value Range Interpretation Code Description Data Julisa rce(s) Supporting Document(s) HCG URINE NEGATIVE NEGATIVE [facility] ID Date Data Source [id number] 06/02/2021 11:10:00 AM EDT [facility] Name Value Range Interpretation Code Description Data Julisa rce(s) Supporting Document(s) ORGANISM [facility] COLONY COUNT N [facility] ID Date Data Source [id number] 04/27/2021 11:24:00 AM EDT [facility] ([facility] Name Value Range Interpretation Code Description Data Julisa rce(s) Supporting Document(s) Luiz Bear [id number] Default Laboratory test result [facility] ([facility]) A hand-written panel/profile was receive d from your office. In accordance with the [facility] Ambiguous Test Code Policy dated May 2003, we have completed your order by us ing the closest currently or formerly recognized AMA panel. We have assigned Comprehensive Metabolic Panel (14), Test Code #514451 to this request. If this is not the testing you wished to receive on this specimen, please contact the [facility] Client Inquiry/Technical Services Department to clarify the test order. We appreciate your business. ID Date Data Source [id number] 04/27/2021 11:24:00 AM EDT [facility] ([facility]) Name Value Range Interpretation Code Description Data Julisa rce(s) Supporting Document(s) Glucose [Mass/volume] in Serum or Plasma 101 mg/dL 65-99 [facility] ([facility]) Urea nitrogen [Mass/volume] in Serum or Plasma 6 mg/dL 6-20 [facility] ([facility]) Creatinine [Mass/volume] in Serum or Plasma 0.61 mg/dL 0.57-1.00 [facility] ([facility]) eGFR If NonAfricn Am 119 mL/min/1.73 [facility] ([facility]) eGFR If Africn Am 138 mL/min/1.73 [facility] ([facility]) [facility] currently reports eGFR in comp liance with the current recommendations of the National Kidney Foundation. [facility] will update reporting as new guidelines are published from the NKF-ASN Task force. Sodium [Moles/volume] in Serum or Plasma 142 mmol/L 134-144 [facility] ([facility]) Urea nitrogen/Creatinine [Mass Ratio] in Serum or Plasma 10 9 -23 [facility] ([facility]) Potassium [Moles/volume] in Serum or Plasma 4.0 mmol/L 3.5-5.2 [facility] ([facility]) Carbon dioxide, total [Moles/volume] in Serum or Plasma 28 mmol/L 20 -29 [facility] ([facility]) Chloride [Moles/volume] in Serum or Plasma 100 mmol/L 96-106 [facility] ([facility]) Protein [Mass/volume] in Serum or Plasma 7.1 g/dL 6.0-8.5 [facility] ([facility]) Albumin [Mass/volume] in Serum or Plasma 4.7 g/dL 3.8-4.8 [facility] ([facility]) Calcium [Mass/volume] in Serum or Plasma 9.5 mg/dL 8.7-10.2 [facility] ([facility]) Albumin/Globulin [Mass Ratio] in Serum or Plasma 2.0 1.2-2.2 [facility] ([facility]) Globulin [Mass/volume] in Serum by calculation 2.4 g/dL 1.5-4.5 [facility] ([facility]) Bilirubin.total [Mass/volume] in Serum or Plasma 0.7 mg/dL 0.0-1.2 [facility] ([facility]) Alkaline phosphatase [Enzymatic activity/volume] in Serum or Plasma 89 IU/L 48-121 [facility] Aspartate aminotransferase [Enzymatic activity/volume] in Serum or Plasma 72 IU/L 0-40 [facility]) Alanine aminotransferase [Enzymatic activity/volume] in Seru m or Plasma 73 IU/L 0-32 [facility] ID Date Data Source [id number] 04/28/2021 04:05:00 AM EDT [facility] Name Value Range Interpretation Code Description Data Julisa rce(s) Supporting Document(s) Glucose 101 mg/dL 65-99 Above high normal [facility] BUN 6 mg/dL 6-20 [facility] Creatinine 0.61 mg/dL 0.57-1.00 [facility] eGFR If NonAfricn Am 119 mL/min/1.73 >59 [facility] eGFR If Africn Am 138 mL/min/1.73 >59 [facility] currently reports eGFR in comp liance with the current recommendations of the National Kidney Foundation. [facility] will update reporting as new guidelines are published from the NKF-ASN Task force. BUN/Creatinine Ratio 10 9-23 [facility] Sodium 142 mmol/L 134-144 [facility] Potassium 4.0 mmol/L 3.5-5.2 [facility] Chloride 100 mmol/L 96-106 [facility] Carbon Dioxide, Total 28 mmol/L 20-29 [facility] Calcium 9.5 mg/dL 8.7-10.2 [facility] Protein, Total 7.1 g/dL 6.0-8.5 [facility] Albumin 4.7 g/dL 3.8-4.8 [facility] Globulin, Total 2.4 g/dL 1.5-4.5 [facility] A/G Ratio 2.0 1.2-2.2 [facility] Bilirubin, Total 0.7 mg/dL 0.0-1.2 [facility] Alkaline Phosphatase 89 IU/L 48-121 [facility] AST (SGOT) 72 IU/L 0-40 Above high normal [facility] ALT (SGPT) 73 IU/L 0-32 Above high normal [facility] ID Date Data Source [id number] 04/28/2021 04:05:00 AM EDT [facility] Name Value Range Interpretation Code Description Data Julisa rce(s) Supporting Document(s) Luiz Bear CMP14 Default [facility] A hand-written panel/profile was receive d from your office. Inaccordance with the [facility] Ambiguous Test Code Policy dated May2003, we have completed your order by using the closest currentlyor formerly recognized AMA panel. We have assigned ComprehensiveMetabolic Panel (14), Test Code #138797 to this request. If thisis not the testing you wished to receive on this specimen, pleasecontact the [facility] Client Inquiry/Technical Services Departmentto clarify the test order. We appreciate your business. ID Date Data Source [id number] 02/20/2021 07:35:00 AM EDT [facility] Name Value Range Interpretation Code Description Data Julisa rce(s) Supporting Document(s) WBC 5.8 x10E3/uL 3.4-10.8 [facility] RBC 4.53 x10E6/uL 3.77-5.28 [facility] Hemoglobin 14.0 g/dL 11.1-15.9 [facility] Hematocrit 41.4 % 34.0-46.6 [facility] MCV 91 fL 79-97 [facility] MCH 30.9 pg 26.6-33.0 [facility] MCHC 33.8 g/dL 31.5-35.7 [facility] RDW 13.8 % 11.7-15.4 [facility] Platelets 261 x10E3/uL 150-450 [facility] Neutrophils 64 % Not Estab. [facility] Lymphs 26 % Not Estab. [facility] Monocytes 6 % Not Estab. [facility] Eos 3 % Not Estab. [facility] Basos 1 % Not Estab. [facility] Neutrophils (Absolute) 3.7 x10E3/uL 1.4-7.0 [facility] Lymphs (Absolute) 1.5 x10E3/uL 0.7-3.1 [facility] Monocytes(Absolute) 0.4 x10E3/uL 0.1-0.9 [facility] Eos (Absolute) 0.2 x10E3/uL 0.0-0.4 [facility] Baso (Absolute) 0.0 x10E3/uL 0.0-0.2 [facility] Immature Granulocytes 0 % Not Estab. [facility] Immature Grans (Abs) 0.0 x10E3/uL 0.0-0.1 [facility] ID Date Data Source [id number] 02/24/2021 07:35:00 AM EDT [facility] Name Value Range Interpretation Code Description Data Julisa rce(s) Supporting Document(s) Vit. B1, Whole Blood 113.0 nmol/L 66.5-200.0 [facility] ID Date Data Source [id number] 02/20/2021 07:35:00 AM EDT [facility] Name Value Range Interpretation Code Description Data Julisa rce(s) Supporting Document(s) Glucose 97 mg/dL 65-99 [facility] BUN 7 mg/dL 6-20 [facility] Creatinine 0.75 mg/dL 0.57-1.00 [facility] eGFR If NonAfricn Am 105 mL/min/1.73 >59 [facility] eGFR If Africn Am 121 mL/min/1.73 >59 [facility] BUN/Creatinine Ratio 9 9-23 [facility] Sodium 140 mmol/L 134-144 [facility] Potassium 3.9 mmol/L 3.5-5.2 [facility] Chloride 96 mmol/L 96-106 [facility] Carbon Dioxide, Total 22 mmol/L 20-29 [facility] Calcium 9.5 mg/dL 8.7-10.2 [facility] Protein, Total 7.0 g/dL 6.0-8.5 [facility] Albumin 4.7 g/dL 3.8-4.8 [facility] Globulin, Total 2.3 g/dL 1.5-4.5 [facility] A/G Ratio 2.0 1.2-2.2 [facility] Bilirubin, Total 0.4 mg/dL 0.0-1.2 [facility] Alkaline Phosphatase 82 IU/L 39-117 [facility] AST (SGOT) 39 IU/L 0-40 [facility] ALT (SGPT) 69 IU/L 0-32 Above high normal [facility] ID Date Data Source [id number] 02/20/2021 07:35:00 AM EDT [facility] Name Value Range Interpretation Code Description Data Julisa rce(s) Supporting Document(s) Iron Bind.Cap.(TIBC) 266 ug/dL 250-450 [facility] UIBC 162 ug/dL 131-425 [facility] Iron 104 ug/dL 27-159 [facility] Iron Saturation 39 % 15-55 [facility] ID Date Data Source [id number] 02/20/2021 07:35:00 AM EDT [facility] Name Value Range Interpretation Code Description Data Julisa rce(s) Supporting Document(s) Folate, Hemolysate 410.0 ng/mL Not Estab. [facility] Folate, RBC 990 ng/mL >498 [facility] ID Date Data Source [id number] 02/20/2021 07:35:00 AM EDT [facility] Name Value Range Interpretation Code Description Data Julisa rce(s) Supporting Document(s) Hemoglobin A1c 5.6 % 4.8-5.6 [facility] Prediabetes: 5.7 - 6.4 Diabetes: >6.4 Glycemic control for adults with diabetes: <7.0 ID Date Data Source [id number] 02/20/2021 07:35:00 AM EDT [facility] Name Value Range Interpretation Code Description Data Julisa rce(s) Supporting Document(s) Vitamin D, 25-Hydroxy 31.8 ng/mL 30.0-100.0 [facility] Vitamin D deficiency has been defined by the [place] of[place] and an Endocrine Society practice guideline as alevel of serum 25-OH vitamin D less than 20 ng/mL (1,2).The Endocrine Society went on to further define vitamin Dinsufficiency as a level between 21 and 29 ng/mL (2).1. IOM ([place] of [employer]). 2010. Dietary reference intakes for calcium and D. [place]: The National Academies Press.2. Dena MF, Donnie WILBURN, Lacy BUSH, et al. Evaluation, treatment, and prevention of vitamin D deficiency: an Endocrine Society clinical practice guideline. JCEM. 2010; 96(7):1911-30. ID Date Data Source [id number] 02/20/2021 07:35:00 AM EDT [facility] Name Value Range Interpretation Code Description Data Julisa rce(s) Supporting Document(s) Phosphorus 2.8 mg/dL 3.0-4.3 Below low normal [facility] ID Date Data Source [id number] 02/20/2021 07:35:00 AM EDT [facility] Name Value Range Interpretation Code Description Data Julisa rce(s) Supporting Document(s) Vitamin B12 768 pg/mL 232-1245 [facility] ID Date Data Source [id number] 02/20/2021 07:35:00 AM EDT [facility] Name Value Range Interpretation Code Description Data Julisa rce(s) Supporting Document(s) Magnesium 1.6 mg/dL 1.6-2.3 [facility] ID Date Data Source [id number] 02/20/2021 07:35:00 AM EDT [facility] Name Value Range Interpretation Code Description Data Julisa rce(s) Supporting Document(s) Ferritin, Serum 201 ng/mL 15-150 Above high normal [facility] ID Date Data Source [id number] 01/24/2021 03:05:35 PM EST [facility] NT INFORMATIONPatient MRN Name Date of Age Gend*PT [id number] Katalina Teran Sonia 1990 31 years F IPPT Location Admission Date/Time Visit ID Attending [id number] 01/23/21 0757 --- Efren Myers MD([id number]) EPI ID CSN Admitting Provider [id number] Efren Myers MD([id number]) Attestation signed by Efren Myers MD at 01/24/2021 3:05 PMI saw and evaluated the patient and reviewed MICHAEL Crain's note. Lupe with the history, physical and medical decision makingSignature: LUX De Leonate: January 24, 2021Time: 3:04 PM Surgical Discharge SummaryKatalina YitMRN: [id number] date: 01/23/2021dmitting Physician: LUX De Leonischarge date and time:Discharge Orders Placed(From admission, onward) Start Ordered 01/24/21 1452 Discharge patient OnceExpected Discharge Date: 01/24/21Discharge Disposition: Home or Self Care 01/24/21 1452Discharge Physician: ABRAN Craindmission Diagnosis: Post-Op Diagnosis Codes: * Morbid obesity [E66.01] * Hepatomegaly [R16.0] * Fatty liver [K76.0]Secondary Diagnoses:Past Medical History:Diagnosis Date ADD (attention deficit disorder) Anxiety Asthma 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 Breast cancer 2014, left breast s/p bilateral mastectomy, chemo Depression Ectopic Environmental allergies GERD (gastroesophageal reflux disease) PTSD (post-traumatic stress disorder) Sleep apnea cpapSurgical Procedures performed on 01/23/2021 by Efren lamb MD Procedure(s): CREATION, GASTRIC BYPASS, YENNIFER-EN-Y, LAPAROSCOPIC, WITH LIVER BIOPSYSecondary Procedures:None.Indication for Admission:Katalina Teran is a 31 years female who suffers from morbid obesity.Her current weight and height are :Wt Readings from Last 1 Encounters:01/23/21 95.4 kg (210 lb 5.5 oz)Ht Readings from Last 1 Encounters:01/23/21 1.549 m (5' 1")Discharge Diagnosis: Morbid ObesityPast Medical History:Past Medical History:Diagnosis Date ADD (attention deficit disorder) Anxiety Asthma 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 Her weight significantly impacts her activities of dailyliving. She is 61 inches tall and weighs 210 pounds, BMI 39 and comorbidities aslisted. She was admitted on 01/23/2021 and underwent the following procedure:CREATION, GASTRIC BYPASS, YENNIFER-EN-Y, LAPAROSCOPIC, WITH LIVER BIOPSY on 01/23/2021y Dr Myers. There were no intraoperative complications and postoperatively Shewas transferred to the floor in stable condition. There were no postoperativeissues. Up on the floor She was given sips of water and dilute juice to drink.She also ambulated and used the incentive spirometer appropriately. She had nodifficulties voiding. She had adequate pain control as well with simethiconeand tylenol. At the time of discharge, Accuchecks and blood pressure werenormal. She was tolerating 4 oz of fluid consistently without nausea. Thepatient's diet was advanced as toleratedDischarge Exam:Vitals: Temp: [97.6 F-99 F] 99 FHeart Rate: [71-83] 77Resp: [17-19] 19BP: (115-134)/(76-90) 117/79General: No acute distressCVS: Regular, rhythm and ratePulmonary: Respirations unlaboredAbdomen: Soft and benign; incisions c/d/i; no ecchymosisExtremities: No calf tenderness bilaterallyDischarged Condition:goodDisposition: Home or Self CareDischarge Instructions:1) The patient is to follow up in our office as directed on dischargepaperwork.2) The patient is to advance their diet as tolerated following the green dietsheet.3) The patient is have blood work drawn prior to their postoperativeappointment (per lab slip).4) The patient was given danger signs and symptoms to call about includingfevers, chills, nausea,vomitng, new and/or increased abdominal pain anddiarrhea.Medications: See Medication Reconcilliation Sheet Katalina Teran Medication Instructions [place]:[id number] Printed on:01/24/21 1454Medication Informationacetaminophen (TYLENOL) 325 MG tabletTake 2 tablets (650 mg total) by mouth every 6 (six) hours as needed for pain(fever or headache)albuterol (PROVENTIL HFA;VENTOLIN HFA) 108 (90 Base) MCG/ACT inhalerInhale 2 puffs every 4 (four) hours as needed for wheezingamphetamine-dextroamphetamine (ADDERALL XR, 30MG,) 30 MG 24 hr capsuleTake 30 mg by mouth every morningamphetamine-dextroamphetamine (ADDERALL) 10 MG tabletTake 10 mg by mouth every eveningAscorbic Acid (VITAMIN C) 1000 MG tabletTake 2,000 mg by mouth dailybudesonide-formoterol (SYMBICORT) 160-4.5 MCG/ACT inhalerInhale 2 puffs 2 (two) times a dayenoxaparin (LOVENOX) 40 MG/0.4ML SOLNInject 0.4 mL (40 mg total) under the skin daily for 10 days After dischargeferrous sulfate 325 (65 FE) MG tabletTake 325 mg by mouth dailyLoratadine 10 MG CAPSTake 1 capsule by mouth dailymagnesium hydroxide (MILK OF MAGNESIA) 400 MG/5ML suspensionTake 15 mL by mouth 2 (two) times a day as needed for constipationmodafinil (PROVIGIL) 200 MG tabletTake 200 mg by mouth dailyNON FORMULARYInsert 2 capsules into the vagina daily Boric acid vaginal suppositoriesomeprazole (PRILOSEC) 40 MG capsuleTake 1 capsule (40 mg total) by mouth daily For three months after surgeryondansetron (ZOFRAN-ODT) 4 MG disintegrating tabletTake 2 tablets (8 mg total) by mouth every 8 (eight) hours as needed for nauseapediatric multivitamin-iron (POLY--ELAINA WITH IRON) 15 MG chewable tabletChew 2 tablets dailysimethicone (MYLICON) 80 MG chewable tabletChew 1 tablet (80 mg total) every 6 (six) hours as needed for flatulence (gaspain)triamcinolone (KENALOG) 0.1 % ointmentApply topically daily as needed (for entire body dermititis)valACYclovir (VALTREX) 500 MG tabletTake 500 mg by mouth daily as needed (for flare ups)vilazodone HCl (VIIBRYD) 10 MG TABSTake 10 mg by mouth nightlyVilazodone HCl (VIIBRYD) 20 MG TABSTake 20 mg by mouth dailyvitamin B-12 (CYANOCOBALAMIN) 1000 MCG tabletTake 1 tablet (1,000 mcg total) by mouth dailyDiscussed with Dr Alvarezature: Latha Barreto PADate: January 24, 2021Time: 2:53 PMCC: Latha Barreto, PACC: JUDY ORDONEZ MD Name Value Range Interpretation Code Description Data Julisa rce(s) Supporting Document(s) ID Date Data Source [id number] 01/24/2021 11:38:29 AM EST [facility] Name Value Range Interpretation Code Description Data Julisa rce(s) Supporting Document(s) POC NOVA GLU 128 mg/dL (70-99) [facility] ID Date Data Source [id number] 01/24/2021 05:54:25 AM EST [facility] Name Value Range Interpretation Code Description Data Julisa rce(s) Supporting Document(s) POC NOVA GLU 145 mg/dL (70-99) [facility] ID Date Data Source [id number] 01/24/2021 12:13:49 AM EST [facility] Name Value Range Interpretation Code Description Data Julisa rce(s) Supporting Document(s) POC NOVA GLU 127 mg/dL (70-99) [facility] ID Date Data Source [id number] 01/23/2021 06:01:09 PM EST [facility] Name Value Range Interpretation Code Description Data Julisa rce(s) Supporting Document(s) POC NOVA GLU 163 mg/dL (70-99) [facility] ID Date Data Source [id number] 02/06/2021 05:12:39 PM EDT [facility] [place], [place] [address]Tel# Surgical Pathology ReportPatient Name: KATALINA TERAN: 1990Accession #:[id number](s) ReceivedA: Liver biopsyClinical Diagnosis and HistoryMorbid obesity Procedures/AddendaAddendum Date Ordered: 02/06/2021 Status: Signed Out Date Complete: 02/06/2021 By: Airam Rodrigues Date Reported: 02/06/2021 Addendum DiagnosisFINAL DIAGNOSIS (FOLLOWING EXTERNAL CONSULTATION)LIVER, WEDGE BIOPSY: STEATOHEPATITIS WITH BRIDGING FIBROSIS. SEE COMMENT. INCREASED FOAMY MACROPHAGES.Addendum CommentThe case has been reviewed by Dr. L[facility] ([id number]). She states, "The wedge biopsy shows moderateto severe steatosis and numerous ballooned hepatocytes. There is nosignificant increase in portal inflammation, and there is only minimallobular inflammation, but there are scattered pigmented foamy macrophages,primary around the central veins. Interlobular bile ducts are intact andfree of inflammation. Iron and copper stains are negative. PAS/D shows noinclusions, but highlights the foamy macrophages. Trichrome stain showsincreased pericellular fibrosis with bridging. In summary, the biopsyshows features of steatohepatitis with bridging fibrosis. Increasedpigmented foamy macrophages often indicate a resolving inflammatoryprocess but I do not see any other features of a superimposed drugreaction or other type of inflammatory liver disease." Jewell Weber, MDDIAGNOSISPRELIMINARY DIAGNOSIS (PENDING OUTSIDE CONSULTATION)LIVER, WEDGE BIOPSY: STEATOHEPATITIS. SEE MICROSCOPIC DESCRIPTION AND COMMENTCommentsThe biopsy is adequate and shows moderate macrovesicular steatosis with azonal distribution. There is patchy portal and lobular inflammationcomposed of predominantly small lymphocytes admixed with scatteredeosinophils and neutrophils as well as collections of histiocytes withinthe lobules, highlighted by CD68 immunostain. No granulomas areappreciated. There is mild periportal ductular proliferation, highlightedby CK7 immunostain that also demonstrate scattered intermediatehepatocytes. Ballooned hepatocytes some of which contain Shirley-Denkbodies are seen. A reticulin stain demonstrate benign liver plates anddemonstrate focal pericentral parenchymal collapse. Iron and copper stainsare negative. No prominent intracytoplasmic globules are appreciated onthe PASD stain. PASD and CD68 highlight Kupffer cell hyperplasia.Trichrome stain shows small foci of stellate perisinusoidal andpericentral lobular fibrosis. CD20 and CD3 demonstrate predominantly smallT lymphocytes. CD38 demonstrate rare plasma cells. The patient's historyof morbid obesity and elevated LFTs and glucose levels are noted. Thehistologic findings are suggestive of a superimposed process, such asdrug-induced liver injury amongst others. The case will be sent out forexpert consultation and a final diagnosis will be subsequently reported inan addendum. Gross DescriptionReceived in formalin labeled "liver biopsy" is a 2.7 x 1.2 x 0.4 cm paletan-red wedge shaped fragment of liver tissue. Serially sectioned andentirely submitted as A1. Modified liver biopsy protocol. [email or web address]/[email or web address] Reported: 01/31/2021Electronically Signed Out By Jewell Weber MD [facility], [place] [address]vmfVjjlwxuvx component performed at [facility], [address], [place], [address].Reported at [facility], [address], [place], [address]. This report may includeimmunohistochemical or in-situ hybridization results. Testing wasdeveloped and the performance characteristics determined by [facility] as required by CLIA '88. The FDA hasdetermined that approval for specific use is not necessary for clinicaluse. T he quality of Hematoxylin and Eosin stains and as applicable, forall immunohistochemical and/or special stains, including positive andnegative controls, were reviewed and considered appropriate.ICD codes E66.01CPT codesA: 10893B, 49711S, 25848A, 39557W, 22939A, 81507g, 13865(4), 38000M Name Value Range Interpretation Code Description Data Julisa rce(s) Supporting Document(s) ID Date Data Source [id number] 01/23/2021 12:30:[address] [facility] INFORMATIONPatient MRN Name Date of Age Gend*PT [id number] Katalina Teran 1990 31 years F IPPT Location Admission Date/Time Visit ID Attending ProviderPERIOP POOL 01/23/21 0757 --- Efren Myers MD([id number]) EPI ID CSN Admitting Provider [id number] Efren Myers MD([id number])CREATION, GASTRIC BYPASS, YENNIFER-EN-Y, LAPAROSCOPIC, WITH LIVER BIOPSY ProcedureNoteKatalina Teran CSN:[id number](s):CRISTA De Leonurgical Assist: Russell Crain:OR Beam Builder Helper: COLE Piñaurgical Assist: MICHAEL CrainOR Relief Beam Builder Helper: Charo Barros RNOR Relief Scrub: Pallavi Osborne Scrub Person: John MerchantProcedure(s):CREATION, GASTRIC BYPASS, YENNIFER-EN-Y, LAPAROSCOPIC, WITH LIVER BIOPSYLaparoscopic Yennifer Y Gastric Bypass, antecolic, antegastric, 50 cm PancreaticoBiliary Limb, 150 cm Yennifer Limb,Wedge liver biopsyEsophagogastrojejunoscopyAnesthesia: GeneralPre-op Diagnosis:Morbid obesity [E66.01]Post-Op Diagnosis Codes: * Morbid obesity [E66.01] * Hepatomegaly [R16.0] * Fatty liver [K76.0]Drains: NoneGrafts/Implants:NoneSpecimens:ID Type Source Tests Collected by Time[facility] : Liver Biopsy Tissue Tissue SURGICAL PATHOLOGY EXAM Efren Myers MD01/23/2021 1039Estimated Blood Loss: 20 mLBlood Administered: See Anesthesia RecordComplications: NoneFindings: Consistent with the Operative Diagnosis, central visceral obesity,hepatomegaly with fatty liver, delayed JJ enterotomy closure, negative leaktest, umbilical port site fascial closure.Indication for Procedure (s):Katalina Teran is a 31 years year old female who suffers from severe obesity.Katalina Teran has attempted multiple diets over the years, and has been ableto lose modest amounts of weight, however the weight loss has never beensustained. She is 61.5 in, 212lb and BMI of 39.41. Her weight impacts heractivities of daily living. Her associated comorbidities include(G47.33) Obstructive sleep apnea (adult) (pediatric)(M25.50) Pain in unspecified joint(M54.9) Dorsalgia, unspecified(J45.909) Unspecified asthma, u ncomplicated(C50.919) Malignant neoplasm of unspecified site of unspecified female breast(F43.10) Post-traumatic stress disorder, unspecified(R53.82) Chronic fatigue, unspecified(J45.909) Unspecified asthma, uncomplicated(K21.9) Gastro-esophageal reflux disease without esophagitisShe meets the criteria for bariatric surgery as defined in the NIH consensusstatement, surgery is medically necessary. We explained the operation, potentialcomplications, what can be expected after surgery, and what to expect for therest of their life. An informed consent discussion was held. The operations Ioffer and their potential complications were discussed. After discussion,patient and I agreed to proceed with a laparoscopic Yennifer-en-Y Gastric Bypass,possible Sleeve Gastrectomy if hostile abdomen is encountered. Botox educationgiven to patient. This may include repair of a Hiatal Hernia if found and aWedge Liver Biopsy if there is a fatty liver. We covered complicationsincluding: , AL, DVT, PE, leaks, sepsis, gallbladder disease, anastomoticulcers, bleeding, failure of weight loss, malnutrition, need for open surgery,internal and external hernias, risk of COVID 19 infection during the hospitalstay, and the need for repeat surgery, among others.DESCRIPTION OF PROCEDURE: The patient was taken to the operating room and placedon the operating table in supine position. Next, general anesthesia was inducedand patient was intubated. The abdomen was prepped and draped in the usualsterile fashion. A time-out was performed with all OR personnel inparticipation. The patient's identity, procedure, preoperative antib iotics,subcutaneous heparin and SCDs were all confirmed.Access into the intraabdominal cavity was gained through a 12- mm RUQ incisionusing a 12-mm Optiview port with a 10-mm 0- degree scope. Once inside,pneumoperitoneum was established and additional ports were placed in thefollowing configuration: one 12-mm in supraumbilical area and one 12-mm rightlower quadrant port, two 12-mm left sided flank ports and one 5-mm epigastricport. Next, the liver was evaluated, which looked enlarged and fattyinfiltrated, and a wedge liver biopsy was taken from the left lobe with Harmonicdevice. Afterwards, the root of the mesentery was identified by retracting themesocolon and transverse colon in a cephalad direction. A 3-0 V-Loc suture wasplaced at the root of the mesentery. This would be used later for closure of theRetro-Yennifer space. The ligament of Treitz was identified and the small bowel wasran distally 50 cm for the pancreaticobiliary limb and this was pushed to thepatient's left. An additional 150 cm was measured distally for the Yennifer limb.The small bowel was transected with a white load on a power Br[place]ree[place] stapler atthe 50 cm point. The biliopancreatic limb and the Yennifer limb were ylgqjjahkgedme-fl-nogi. The intermesenteric defect between the two limbs was closed with arunning 3-0 V-Loc suture. Once this was closed, an enterotomy was made in thebiliopancreatic limb and then in the Yennifer limb. The 60-mm [place] stapler with awhite load was inserted into both enterotomies and fired creating thejejunojejunostomy. Next, the greater omentum was transected with the Harmonicdevice from the colon up to the stomach. Attention was re-directed at thejejunojejunostomy to perform a delayed closure. The internal staple line of thejejunojejunostomy was inspected with wavy graspers; Hemostasis was achieved withbipolar cautery. Next, the remaining enterotomy defect was closed with a 3-0V-loc suture in a standard running fashion and double-layer closure techniquewas done. The proximal end of the Yennifer limb was anchored to the stomach using a3-0 silk suture.The patient was then placed in steep reverse Trendelenburg and the NG tube wasremoved. The scope was changed to a long bariatric 45 degree scope. The angle ofHis was dissected out with a Anisha grasper behind the hiatus, exposing theleft bryce. There was no significant hiatal hernia appreciatedThe gastric pouch was then created. Using the wavy graspers and Harmonic device,a perigastric dissection was performed 10 cm distal to the GE junction along thelesser curvature. Once inside the lesser sac, a 60-mm stapler with the greenload cartridge was fired transversely across the lesser curve 50 mm. A 30-Frenchbougie was used up to help size the pouch. The pouch was completed usingmultiple firings of green loads up towards the angle of His and parallel to thelesser curve. Afterwards, a gastrotomy was made at the distal end of the pouch.The silk suture anchoring the Yennifer to the stomach was removed. An enterotomywas made at the 11 o'clock position. The linear stapler with a blue loadcartridge was inserted at 40 mm into the gastrotomy and enterotomy and firedcreating the gastrojejunostomy. An anti-tension stitch was placed at the crotchof the anastomosis using a 3-0 V-Loc suture and this was used to oversew thevertical pouch staple line. 3-0 silk anchoring sutures were placed at theproximal and distal end of the gastrojejunostomy opening. The remaining defectof the anastomosis was closed with a 3-0 V-loc suture in a running fashion. Adouble-layer closure technique was performed. The staple lines of the pouch andremnant stomach were inspected for bleeding. Hemostasis was obtained withbipolar cautery.Next, the patient was laid flat. The retro-Yennifer space was closed with thepreviously placed 3-0 V- Loc suture. After this was done, the anastomosis wastested for leaks. My technical assistant clamped across the Yennifer limb with the bowel clampwhile I passed the endoscope into the esophagus, into the pouch, and into theRoux limb. I insufflated with air and my technical assistant irrigated over theanastomosis with normal saline. There were no bubbles seen emanating from theanastomosis; therefore, the test was negative and complete. The insufflated airwas evacuated and the scope was retrieved. Next, all staple lines werereinspected and hemostasis was obtained with bipolar cautery. Intra-abdominal0.25% marcaine was placed over the viscera in the upper abdomen. All port siteswere inspected for bleeding and hemostasis was excellent. Umbilical port sitefascial closure was done. The pneumoperitoneum was evacuated and the skinincisions were closed with 4-0 Vicryl. 0.25% Marcaine was used to infiltrate theskin incisions and dermabond was applied. Sponge, needle, and instrument countswere accurate at the end of the case.The patient tolerated the procedure well. They were extubated and taken torecovery room in stable condition.All significant tasks completed under the direction of the primary surgeon withthe exception of:LUX Jiménezate: 01/23/2021 Time: 12:23 PM Name Value Range Interpretation Code Description Data Julisa rce(s) Supporting Document(s) ID Date Data Source [id number] 01/23/2021 12:28:32 PM EST [facility] Name Value Range Interpretation Code Description Data Julisa rce(s) Supporting Document(s) POC NOVA GLU 243 mg/dL (70-99) [facility] [place] [facility] STAFF ID Date Data Source [id number] 01/23/2021 10:55:[address] [facility] INFORMATIONPatient MRN Name Date of Age Gend*PT [id number] Katalina Teran 1990 31 years F SDAPT Location Admission Date/Time Visit ID Attending Provider --- --- --- --- EPI ID CSN Admitting Provider [id number] ---AirwayPatient location during procedure: ORUrgency: electiveDifficult airway: noAdvanced airway equipment used: noStaffingPerformed by: Jaelyn Reinoso CRNAAnesthesiologist: Main Zacarias, DOIndications and Patient ConditionIndications for airway management: anesthesiaPreoxygenated: yesPatient position: sniffingIn-line stabilization: noMask ventilation: 1 - vent by maskFinal Airway/ApproachesFinal airway type: ETTNumber of attempts at final approach: 1Number of other approaches attempted: 0Final Airway DetailsFinal ETT airway: ETT - singleCuffed: yesTechnique used for successful ETT placement: direct laryngoscopy and regularstyletCricoid pressure: yesRSI: noInsertion site: oralBlade type/size: MAC 3.5ETT size: 7.5 mmMeasured from: lipsETT to lips: 21 cmPlacement verified by: + [id number] view: grade IIa - partial view of glottis Name Value Range Interpretation Code Description Data Julisa rce(s) Supporting Document(s) ID Date Data Source [id number] 01/23/2021 09:49:57 AM EST [facility] Name Value Range Interpretation Code Description Data Julisa rce(s) Supporting Document(s) POC NOVA GLU 122 mg/dL (70-99) [facility] [place] [facility] ID Date Data Source [id number] 01/23/2021 09:57:26 AM EST [facility] Name Value Range Interpretation Code Description Data Julisa rce(s) Supporting Document(s) POC [facility] <5.0 IU/L [facility] INTERPRETATION:<5.0 NEGATIVE5.0- 25.0 INDETERMINATE>25.0 POSITIVELEVELS BETWEEN 5 AND 25 IU/L MAY INDICATEEARLY AND SHOULD BE REPEATED ANA BLOOD SAMPLE AFTER 48 HOURS.PERFORMED BY [facility] ID Date Data Source [id number] 01/23/2021 09:32:20 AM EST [facility] NT INFORMATIONPatient MRN Name Date of Age Gend*PT [id number] Katalina Teran 1990 31 years F SDAPT Location Admission Date/Time Visit ID [facility] 0757 --- Efren Myers MD([id number]) EPI ID CSN Admitting Provider [id number] Efren Myers MD([id number])H&P reviewed. The patient was examined and there are no changes to the H&P.Efren Myers MD9:32 AM Name Value Range Interpretation Code Description Data Julisa rce(s) Supporting Document(s) ID Date Data Source [id number] 01/19/2021 02:23:43 PM EST [facility] NT INFORMATIONPatient MRN Name Date of Age Gend*PT [id number] Katalina Teran 1990 31 years F OPPT Location Admission Date/Time Visit ID Attending Provider --- --- --- Efren Myers MD([id number]) EPI ID CSN Admitting Provider [id number] Efren Myers MD([id number])HISTORY PHYSICALName: Katalina Teran : 1990 Sex: female Care Provider: Nanci GOMEZending Physician: Dr. MyersInformant: The patient who is reliable.Chief Complaint: "I need gastric bypass surgery"HISTORY OF PRESENT ILLNESS: Ms Teran is a 31 years old white female with historyof breast cancer, sleep apnea, depression, anxiety, and ADD who reports of beingoverweight past for 4 years. She states that she has gained approximately 65pounds. She attempted keto diet, decreasing portion, lowering carb intake, andincreasing exercise. She was able to lose some weight but was not able tosustain. Subsequently, patient was referred to Dr. Myers. Options werediscussed. 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 Breast cancer 2014, left breast s/p bilateral mastectomy, chemo Depression Ectopic Environmental allergies GERD (gastroesophageal reflux disease) PTSD (post-traumatic stress disorder) Sleep apnea cpapPAST SURGICAL HISTORY:Past Surgical History:Procedure Laterality Date BREAST RECONSTRUCTION Bilateral CATARACT EXTRACTION Right COMBINED HYSTEROSCOPY DIAGNOSTIC / D&C ENDOMETRIAL ABLATION EXPLORATORY LAPAROSCOPY INTRAOCULAR PROSTHESES INSERTION Right MODIFIED RADICAL MASTECTOMY W/ AXILLARY LYMPH NODE DISSECTION Bilateral lymph nodes were removed in the left side PANENDOSCOPY N/A 10/25/2020 Procedure: ENDOSCOPY, UPPER GASTROINTESTINAL (GI) TRACT W BIOPSY; Surgeon:Leann Stinson MD; Laterality: N/A; RECONSTRUCTION / CORRECTION OF NIPPLE / AEROLA Bilateral SALPINGECTOMY Left d/t ectopic WISDOM TOOTH EXTRACTIONALLERGIES:AllergiesAllergen Reactions Nickel Dermatitis Tylenol 8 Hour [Acetaminophen] Hives Tylenol-Codeine #4 Adhesive Tape RashMEDICATIONS:Prior to Admission medicationsMedication Sig Start Date End Date Taking? Authorizing Provideracetaminophen (TYLENOL) 500 MG tablet Take 500 mg by mouth daily as needed forpain Historical Provider, MDalbuterol (PROVENTIL HFA;VENTOLIN HFA) 108 (90 Base) MCG/ACT inhaler Inhale 2puffs every 4 (four) hours as needed for wheezing Historical Provider, Gurindermphetamine-dextroamphetamine (ADDERALL XR, 30MG,) 30 MG 24 hr capsule Take 30mg by mouth every morning Historical Provider, Gurindermphetamine- dextroamphetamine (ADDERALL) 10 MG tablet Take 10 mg by mouth everyevening Historical Provider, GURINDERscorbic Acid (VITAMIN C) 1000 MG tablet Take 2,000 mg by mouth dailyHistorical Provider, budesonide-formoterol (SYMBICORT) 160-4.5 MCG/ACT inhaler Inhale 2 puffs 2 (two)times a day Historical Provider, ferrous sulfate 325 (65 FE) MG tablet Take 325 mg by mouth daily HistoricalProvider, Loratadine 10 MG CAPS Take 1 capsule by mouth daily Historical Provider, Georginaodafinil (PROVIGIL) 200 MG tablet Take 200 mg by mouth daily HistoricalProviderGATO FORMULARY Insert 2 capsules into the vagina daily Boric acid vaginalsuppositories Historical Provider, omeprazole (PRILOSEC) 20 MG capsule Take 20 mg by mouth daily HistoricalProvider, triamcinolone (KENALOG) 0.1 % ointment Apply topically daily as needed (forentire body dermititis) Historical Provider, valACYclovir (VALTREX) 500 MG tablet Take 500 mg by mouth daily as needed (forflare ups) Historical Provider, vilazodone HCl (VIIBRYD) 10 MG TABS Take 10 mg by mouth nightly H istoricalProvider, Vilazodone HCl (VIIBRYD) 20 MG TABS Take 20 mg by mouth daily HistoricalProviderMDlevofloxacin (LEVAQUIN) 500 MG tablet Take 500 mg by mouth daily 01/19/21Historical Provider, nystatin (MYCOSTATIN) [id number] UNIT/ML suspension Take 500,000 Units by mouth 4(four) times a day 01/19/21 Historical Provider, MDSocial HistorySocioeconomic History Marital status: Spouse name: Not on file Number of children: Not on file Years of education: Not on file Highest education level: Not on fileOccupational History Not on fileSocial Needs Financial resource strain: Not on file Food insecurity: Worry: Not on file Inability: Not on file Transportation needs: Medical: Not on file Non-medical: Not on fileTobacco Use Smoking status: Former Smoker Years: 10.00 Types: Cigarettes Last attempt to quit: 05/2020 Years since quittin.6 Smokeless tobacco: Never UsedSubstance and Sexual Activity Alcohol use: Yes Comment: occ Drug use: Never Sexual activity: Not on fileLifestyle Physical activity: Days per week: Not on file Minutes per session: Not on file Stress: Not on fileRelationships Social connections: Talks on phone: Not on file Gets together: Not on file Attends pentecostal service: Not on file Active member of club or organization: Not on file Attends meetings of clubs or organizations: Not on file Relationship status: Not on file Intimate partner violence: Fear of current or ex partner: Not on file Emotionally abused: Not on file Physically abused: Not on file Forced sexual activity: Not on fileOther Topics Concern Not on fileSocial History Narrative Not on fileFamily HistoryProblem Relation Age of Onset Malig Hyperthermia Neg HxREVIEW OF SYSTEMS:Constitution: Weight stable, Denies fatigue, fever or chills. Caffeine intake: 0cups/day.HEENT: Wears glasses. Denies any blurred vision, double vision, dizziness,tinnitus, dysphagia or headaches. Right eye blind. Has prosthesis.Respiratory: Denies any shortness of breath, cough, yellow sputum production orwheezing.Cardiovascular: Denies any chest pain, pressure or tightness. Denies anyproximal nocturnal dyspnea or orthopnea.Muscle/Skeletal System: Denies any muscle ache, joint ache or weakness.Neurologic: Denies any numbness, tingling, tremors or syncope.GI: Denies any nausea, vomiting, diarrhea, constipation or melena.: Denies any dysuria, hematuria or nocturia.Endocrine: Denies polyuria, polydipsia or polyphagia. Denies any heat or coldintolerance, fatigue or night sweats.Hematology: Denies any bleeding or bruising tendencies.DNR Status: Full Code per the patient.HCP: No per patient.PHYSICAL EXAM:General: She is a 31 years old, pleasant white female, in no acute distress attime of examination. Vitals on arrival to the office are BP (!) 148/97 (BPLocation: Right upper arm, Patient Position: Sitting) | Pulse 93 | Temp 97.1 F (Skin) | Ht 1.549 m (5' 1") | Wt 97 kg (213 lb 12.8 oz) | BMI 40.40 kg/m Body mass index is 40.4 kg/m ..Skin is pink warm and dry.HEENT: She is normocephalic, atraumatic. Elkin conjunctivae. Anicteric sclerae.Pupils are equal, round, reactive to light and accommodation. Extraocularmovements are intact. Ears: Without drainage or lesion. Mouth: Dentition is ingood repair. She has a grade II airway. Neck is supple midline without cervicaladenopathy. There is no tonsillo pharyngeal congestion. Mucous membranes aremoist. There are no oral lesions. No jugular distention. No carotid bruit.CHEST/BREAST: A/P less than transverse. Breast exam declined.LUNGS: Clear to auscultation. No wheezes, rhonchi or crackles.HEART: Rate rhythm regular. S1, S2. No murmur, rub or gallop.ABDOMEN: Morbidly obese. Bowel sounds positive times four. Soft, non tender. Norebound tenderness. No hepatosplenomegaly. Negative CVAT.GENITAL/RECTAL: Deferred.MUSCLE/SKELETAL: Strength is 5/5. Retail Account Executive are equal.NEUROLOGICALLY: Cranial nerves II through XII are grossly intact.VASCULAR: Pulses are positive. NO edema.Anesthesia complications: DeniesSteroid use: She denies any oral steroid therapy for three weeks or greaterwithin the last 3 months.CSHA Frailty Scale :: 2/10 Well (without active disease, but less fit thanpeople in category I. Often they exercise or are very active occasionally, e.g.seasonally).Stop Bang Questionnaire - Total Score: Sleep apnea with CPAPIMPRESSION and PLAN:Primary Diagnosis: Morbid obesity surgery as per Dr. Jacobs Diagnosis and Plan:1. GI prophylaxis Per surgeon2. DVT prophylaxis Early ambulation. Pneumatic compression device.Subcutaneous Heparin or LMW Heparin if clinically indicatedALLERGIES:Nickel; Tylenol 8 hour [acetaminophen]; and Adhesive tape01/19/2021 2:23 Richmond Petersen document or parts of this document, were dictated using Calera speaking software. A reasonable attempt at proofreading has beenmade to minimize errors. Please call with any questions or corrections. Name Value Range Interpretation Code Description Data [facility](s) Supporting Document(s) ID Date Data Source [id number] 01/19/2021 12:39:49 PM EST [facility] Name Value Range Interpretation Code Description Data [facility] EKG [facility] VZJLJp0cAlAWNaIev1DbZcBcLEFwAP2cmqi2Y2L2uQSnD2XykYGio0txZ3KoB3TfWSDgUZRGWA2AoSPb jb2 [file] WjiSUcocFv8b4O8lSxBU65I2ZdSKiBoYHl6XZqBschXZ3gg7d5wVMTvgf1igfL6J3oDga1vUmkqI/Leticia sX77vWDH9rKaSrzLaj/4GO5iCKoPMqwc7mER+e+lJM tDaTF9usgXEaybQU/ltVkA5x3oTKMkMhFSgAZN7OJ4V4ui1bjkZ31MtFA563rZfx5ikDt2ui3xgEINCE WT4ICV5O3FZLSHTj36gCAfjkPGflUQi0TzkvNPljGSHy6rVEyafRlDXOR0ZCBQHhfJEIU1rRL3lPHlHS aJQgS+ZNDvRQQXq0dveRJoG1XyYFxbtMTIbSJPgQwm NSmpa64N26VnUCU9iZN6GrCiAl5CdMHMNZO596ZhZ3EbsrFOuGCC9ZTDv0GvUjzF/YLi6aG3wug24tfA fdfIOz08rQTRmfx9VdvRlOgITa2VqxpomobzfsufudkeaglvczuyJQJ5GmvVxOFrDvbHtL2cYuR7Ho7Y +l0XW25jWN9ioQnpWqIetlP4I0bS8LTDbAsRLXK7FU WZ6APB1je4dfWEPlX40LHA6vRCXpc7YV1RHElJPtc6vmwEapqLP/WcfCQXyrKMYzBKxz4jvnEsMFWFxU WjOIOjRzto++uXVBBcHF1titPWKmbfmZMMOGuSf7NNtiCTrabGtFyexiJDn/HAkkrho15fxSttdUrCie deJmHDGQfcqZ1R/qLYg+jTTz74BxklbF60kxn2McTO EUIw5ipH3ZlARpjeRE7B++QWTqmtrMgxsJl2hfyYkFdN1t35AtB4ij1AbvQfG3uyqTUPKnXOATjC5TMT vVR+Slu45ShuoLlX2FxLkglWvzIB8e0Z2i31P5acMhI2jqGOQ/TBwovpzxx19sibmqmpWa0TmTh1XXS4 F5jDPuaT57K+76BjDcdL+/lAw/lJ0Y04FMVOs [file] vHf0rB715hsH455g21MnbKo4c/5Uc4e3clDP54wynh yQ84/xTVXY1Sp7pAgg/l8QJj0gPe68xY1do1H7bkFe/+mhUr8P0vvEz9axWa6bla/eb927SUZ/93vZy/ P3/40eljS1d/8EdBP+Di8/3PHx8+3f20/P377nc0/l9/v324vf/f5d9Lck81/Bzz9rSdD3d7c99/3hLL k17KDt8r7pfq892/tu6J/QbK8s2x4/32blLv0ix06a mXR/4KusjJ00f76I7pl1xRet6kmkUmKM8i38Wkn4O+XiT7M6Pfsk826hEPYhUbIhno0WHk8yG3vb4eO8 rfNjlo5FIA9g1Cmv7Sj7+dbU/5/Y92i5ygOA3upx60+adD00mdc8bv/cUpW0H4h+2u5nI2rquU7+HrRx 928efibY2r46+m2fb+7r5Zc5bU19/qEs59QDK1FNIm ob2qHd3/KlfKkIx3B91qseoX63/ePfz/7S9/qIkXfP9j97ZThtni6m39yT99frk95g12y3/vn95+3yL5 5PZ+i6Pt+3xj7905DRkBlF7o79O6wi6mH9ejA5y6pW7N4PWlVxv8mh+WDOsCgjoEiGa23EsSmXS9t2ux bu56t1CFdp4Luj3BytTOf58kmzhHn7oXv/h93dInN6 +ecH/RpiM36x+6Rf1n5w/+OciATO5e4JhJ9lPgy77oeazR3kmBoQGYgtreBjzj/mHQ0a7igm/bIs860c TSXY/jf310kPivnoC/yWpCdJbQZ9oq7T0dbmzB080ev1Rhe0ApZV9Qk66kxzwvb16utagnYnfu62H1yW s0Qgy150zirBfrQRs69y564ur35VoX6tx73F8/QsuZ lFfwgqRzuATdNV0UBG0jx6IkDlI1EIXny9ClWDnyVLa5eAHoRPcaffFun2YycxcwE8Jnx6HyPgWkWRNh QqCcBnd7GCDwGcR5dZYdZtUjVIGoX4AsMMDhDvF8CgJiGTZGMR9JDXRhgwWtRnEdDSL+HxJeGC0eenbr PORbi1OeRVrwANymIZBbS2V2dNxoUOBvZ9GtaP61QL SlT5UiphD2BPW6DHThZdBbWERcmFFsKHVhEIH+OlGwVB5vxikaIJPcc3YuNSoaBAU9dU0dNYgNNELRLX oSAKimLuP6y08hrnLBQDPvOVAcFV2AltEpdYdqokWeiKEuOZE0JnCvEDDrNnGpPjL5JRLKLWXiSWViNZ DuSEOnI4RevExeWBzOQIJKXObFBZesTgRfe6J2QUIk caGIKHPMWFBCTZGCQUCOJYW1ASX4ZXh6ULzyE2N0KbvbS7JtZS4EW6PmRCTlZFJDFCBdhyPnFD7FieBh eT4yMYpTHTQXJVpQPFenTeA5j53nraFFGNDaFBFkDHeaYLWuFBAnRAEsDUDeXAYpXRWtHURxOO7UX2Gg SJVqOLMBOEH4p8XmYCIcgxtmkifmVc9flmRyNvp+Pg cqPNKcb0KvTUbfY0Z9dYKvI1JbW9VcDT2BbDLhAYfjVPYlOIJtHWEsF649ffVhQO2+SD5xc8KlIukkJO UXURZjJJWqGMXjDSB3XeGlLLEmIRMoFCLvUcF2JtTtSqWJZXJgYUI7YfU4FUNdXFSlDGEfJObaQVDtVS IxHWK1LQMhTNXxKW1sTmXkLWZjOGPpDRSnSFXnRZAg rnFMMROxGKJaDVGcFAE2KWOmSQPgBNzgAXHbWJEkRAR4WYIvRAPnDJ4cKmZjNNGtRKHwDoewPOFxHNTs vxVAIIQiPTSiANT2MlTbHEJxHLJrBVkyUJZeHYDpKxh2OHXxXSKoFX6aGmIsQLLxBRF2AEakVTYcWFKn biAKMDAwMDAwMDUyMyAwMDAwMCBuIAowMDAwMDAwNj RcZJXuBLSfUS8dFyPvUWXsKGV1XMEwDTIrXMJflmVOCMUhSNByADn2FQWjAAPfEKEyJOvmYPBkPZHsAQ F4FXZzZIEiDP0rOgPcIEMjYHDnISRyOOUtKNAsaaOBYZTqDQTrWFK7YHHgJSJeKQRfCLlhNLObIVFuEr g3ODZdHYMwVQ7tHxPeQGJuQRI7SESmNJMvCVCrxsZC FEIhOIX9WzW7BAImULTrISRmPHrtNFEeWKXpHdN3TKZsTKXyUK4jVfZlHUMeEVQ2NtJkFMOqTJAvtqMU GJWzRTWnMKQ0SqIdJWTmBZBpQMvsLYFzAUJpFCUzSIO1PZP2TRVgZwMwXKycZOKZQUnLE7LzsgTeElBU K7yhIp8dThPwOUDAG9Ogp6QyTYXePVNCOw6+WnP5HGL4pFIxPyo5MmPcTvvnVYTRIn== ID Date Data Source [id number] 01/19/2021 08:46:25 PM EST [facility] SPEC EXP DATE 01/24/2021ATI ENT ABO/Rh O NEGATIVEANTIBODY SCREEN NEGATIVETESTING SITE PERFORMED AT [address] [place] [id number] Name Value Range Interpretation Code Description Data Julisa rce(s) Supporting Document(s) TYPE AND SCREEN [facility] ANTIBODY SCREEN NEGATIVE ID Date Data Source [id number] 01/19/2021 06:51:56 PM EST [facility] Name Value Range Interpretation Code Description Data Julisa rce(s) Supporting Document(s) SODIUM 138 mmol/L (136-145) [facility] POTASSIUM 4.4 mmol/L (3.6-5.2) [facility] CHLORIDE 101 mmol/L (100-108) [facility] CO2 30 mmol/L (22-31) [facility] ANION GAP 7 mmol/L (7-16) [facility] UREA NITROGEN 13 mg/dL (7-24) [facility] CREATININE 0.82 mg/dL (0.60-1.00) [facility] BUN/CREAT RATIO 15.9 RATIO (10.0-20.0) [facility] GLUCOSE 113 mg/dL (70-99) H [facility] CALCIUM 9.3 mg/dL (8.4-10.2) [facility] TOTAL PROTEIN 7.6 g/dL (6.4-8.2) [facility] ALBUMIN 3.9 g/dL (3.5-4.6) [facility] GLOBULIN 3.7 g/dL (2.7-4.3) [facility] ALB/GLOB RATIO 1.1 RATIO [facility] ALKALINE PHOSPHATASE 79 U/L (45-117) [facility] BILIRUBIN,TOTAL 0.4 mg/dL (0.0-1.0) [facility] PLEASE NOTE:Total bilirubin results may be falselyelevated in patients taking Eltrombopag. AST (SGOT) 221 U/L (11-39) H [facility] ALT (SGPT) 207 U/L (12-78) H [facility] GFR >60 ml/min/1.73m2 (>59) [facility] GFR ( AMER) >60 ml/min/1.73m2 (>59) [facility] GFR INTERPRETATION [facility] --NORMAL KIDNEY FUNCTION OR MILD DISEASE - GFR >OR= 60CHRONIC KIDNEY DISEASE - GFR 15 - 59RENAL FAILURE - GFR <15 Est. GFR calculation based on the MDRDstudy equation, which assumes a steadystate for creatinine. Est. GFR should notbe used for medication dosing. ID Date Data Source [id number] 01/19/2021 06:51:56 PM EST [facility] Name Value Range Interpretation Code Description Data Julisa rce(s) Supporting Document(s) TSH,ULTRASENSITIVE @ 1.890 mIU/L (0.360-4.170) [facility] ID Date Data Source [id number] 01/19/2021 05:50:16 PM EST [facility] Name Value Range Interpretation Code Description Data Julisa rce(s) Supporting Document(s) HEMOGLOBIN A1C @ 6.0 % (4.0-6.0) [facility] Performed using Siemens Pelham immunoassa y.Care must be taken when interpreting [id number] in patients with a hemoglobin variantor decreased erythrocyte lifespan. Values 5.7 - 6.4% suggest prediabetes.Values >=6.5% are diagnostic for diabetes.REFERENCE: DIABETES CARE 2018: 41(S13-S27). EST AVERAGE GLUCOSE 126 mg/dL [facility] ID Date Data Source [id number] 01/19/2021 05:24:34 PM EST [facility] Name Value Range Interpretation Code Description Data Julisa rce(s) Supporting Document(s) WBC 9.4 10*3/uL (4.1-11.0) [facility] RBC 4.63 10*6/uL (4.00-5.40) [facility] HGB 14.3 g/dL (12.0-16.0) [facility] HCT 42.6 % (36.0-47.0) [facility] MCV 91.9 fL (80.0-95.0) [facility] MCH 31.0 pg (27.0-32.0) [facility] MCHC 33.7 g/dL (32.0-36.0) [facility] RDW 13.9 % (10.5-14.5) [facility] PLT 291 10*3/uL (150-450) [facility] MPV 7.1 fL (7.1-10.7) [facility] ID Date Data Source [id number] 01/19/2021 10:20:00 AM EST [facility] Name Value Range Interpretation Code Description Data Julisa rce(s) Supporting Document(s) SARS coronavirus 2 RNA Not Detected [facility] [place] This lab was ordered by [facility] and reported by [employer]. ID Date Data Source [id number] 01/20/2021 03:10:04 PM EST [facility] Name Value Range Interpretation Code Description Data Julisa rce(s) Supporting Document(s) SARS-COV-2 JAQUELIN [facility] Not DetectedReference range: Not Detecte d This nucleic acid amplification test was developed and its performance characteristics determined by [facility] [place]. Nucleic acid amplification tests include RT-PCR and TMA. This test has not been FDA cleared or approved. This test has been authorized by FDA under an Emergency Use Authorization (EUA). This test is only authorized for the duration of time the declaration that circumstances exist justifying the authorization of the emergency use of in vitro diagnostic tests for detection of SARS-CoV-2 virus and/or diagnosis of COVID-19 infection under section 564(b)(1) of the Act, 21 U.S.C. 360bbb-3(b) (1), unless the authorization is terminated or revoked sooner. When diagnostic testing is negative, the possibility of a false negative result should be considered in the context of a patient's recent exposures and the presence of clinical signs and symptoms consistent with COVID- 19. An individual without symptoms of COVID- 19 and who is not shedding S ARS-CoV-2 virus would expect to have a negative (not detected) result in this assay. Performed At: [facility] [address] [place], [place] [id number] Chayito Anton PhD Ph:[phone] ID Date Data Source [id number] 10/26/2020 05:15:34 PM EST [place], [place] [address]Tel# Surgical Pathology ReportPatient Name: KATALINA TERAN: 1990Accession #:[id number](s) ReceivedA: Antrum bxClinical Diagnosis and HistoryReflux, r/o H. pylori DIAGNOSISSTOMACH, ANTRUM, BIOPSY: BENIGN GASTRIC ANTRAL TYPE MUCOSA WITH MILD VASCULAR CONGESTIONAND FOCAL MINIMAL CHRONIC INFLAMMATION. NO INTESTINAL METAPLASIA,DYSPLASIA, OR H. PYLORI ORGANISMS ARE IDENTIFIED. H. PYLORI IMMUNOSTAINEXAMINED. Gross DescriptionReceived in formalin labeled "antrum biopsy rule out H. pylori" are twotan-pink irregular fragments of tissue measuring 0.4 and 0.6 cm. Entirelysubmitted as A1. Multilevel. jgllmr/mwg Reported: 10/26/2020Electronically Signed Out By Christopher Escobedo MD [facility] [place] [address]agiFfdfnnurz component performed at [facility]arckshoutr[facility], Histopa thology, [address] [place] [address], [address].Reported at [facility], [address] [place] [address], [address]. This report may includeimmunohistochemical or in-situ hybridization results. Testing wasdeveloped and the performance characteristics determined by [facility] as required by CLIA '88. The FDA hasdetermined that approval for specific use is not necessary for clinicaluse. The quality of Hematoxylin and Eosin stains and as applicable, forall immunohistochemical and/or special stains, including positive andnegative controls, were reviewed and considered appropriate.ICD codes K21.9CPT codesA: 20665J, 16489x Name Value Range Interpretation Code Description Data Julisa rce(s) Supporting Document(s) ID Date Data Source [id number] 10/25/2020 02:08:[address] [facility] NT INFORMATIONPatient MRN Name Date of Age Gend*PT [id number] Katalina Teran Sonia 1990 30 years F OPPT Location Admission Date/Time Visit ID Attending [facility] [place] 10/25/20 1238 --- Leann Stinson MD([id number]) EPI ID CSN Admitting Provider [id number] Leann Stinson MD([id number])Endoscopic Gastroduodenoscopy Procedure NotePatient: Katalina Scott TuttSurgery Date: October 25, 2020Surgeon(s):KEKE Malikre- Operative Diagnosis:Morbid obesity [E66.01]Post-Op Diagnosis Codes: * Morbid obesity [E66.01] * Normal upper endoscopy.Recommendations:1. Dietary discretion with regards to GERD.2. Follow up on the results of the gastric antral biopsies.Procedure(s):ENDOSCOPY, UPPER GASTROINTESTINAL (GI) TRACT W BIOPSYSedation: Monitored Anesthesia Care (MAC) (see anesthesia report).ASA Class: IIIOther Equipment Type Equipment Setting Setting Low Setting High Applied By Endoscope ENDOSCOPE [id number] Leann Stinson MD Endoscope Pediatric (ENDO)Consent:After obtaining history and performing the physical examination, the procedure,indications, potential complications, including but not limited to bleeding,perforation, infection, adverse medication reaction, and alternatives wereexplained to the patient. Patient appeared to understand the benefits and risksof this procedure. Informed consent was obtained from the patient afterproviding opportunity for questions.Procedure Details:The patient was placed in the left lateral decubitus position and monitored perendoscopy protocol. The gastroscope was inserted into the mouth and advancedunder direct visualization to fourth portion of the duodenum. A carefulinspection was made as the gastroscope was withdrawn, including a retroflexedview of the proximal stomach; findings and interventions are described below.After completion of the examination, the patient was transferred to the recoveryroom.* No implants in log *Findings:Oropharynx: NormalEsophagus: NormalEG Junction: NormalCardia: NormalFundus: NormalBody: NormalAntrum: Normal. Biopsies taken for H. PyloriPylorus: NormalDuodenum Bulb: NormalDuodenum 2nd Portion: NormalSpecimens:ID Type Source Tests Collected by Time DestinationA : antrum bx r/o h pylori Tissue Biopsy SURGICAL PATHOLOGY EXAM Leann Stinson MD 10/25/2020 1403Complications: None; patient tolerated the procedure well.Estimated Blood Loss: Alex Stinson MD10/25/20202:06 PM Name Value Range Interpretation Code Description Data Julisa rce(s) Supporting Document(s) ID Date Data Source [id number] 10/25/2020 01:40:[address] [facility] HospitalPATIE NT INFORMATIONPatient MRN Name Date of Age Gend*PT [id number] Katalina Teran Sonia 1990 30 years F OPPT Location Admission Date/Time Visit ID Attending ProviderUniversity [facility]ero [place] 10/25/20 1238 --- Leann Stinson MD([id number]) EPI ID CSN Admitting Provider [id number] Leann Stinson MD([id number])Inpatient History & PhysicalKatalina Scott TuttMRN:[id number]:1. GERDPlan:1. Proceed with upper endoscopy as planned.HPI: Katalina is here for her upper endoscopy.She is being considered forbariatric surgery. 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 Breast cancer Depression Environmental allergies GERD (gastroesophageal reflux disease) PTSD (post-traumatic stress disorder) Sleep apnea cpapPast Surgical History:Past Surgical History:Procedure Laterality Date MODIFIED RADICAL MASTECTOMY W/ AXILLARY LYMPH NODE DISSECTION Bilateral lymph nodes were removed in the left sideMedications:Medications Prior to AdmissionMedication Sig Dispense Refill Last Dose albuterol (PROVENTIL HFA;VENTOLIN HFA) 108 (90 Base) MCG/ACT inhaler Inhale 2puffs every 4 (four) hours as needed for wheezing Past Week at Unknown time amphetamine-dextroamphetamine (ADDERALL XR, 30MG,) 30 MG 24 hr capsule Take 30mg by mouth every morning 10/24/2020 at Unknown time amphetamine-dextroamphetamine (ADDERALL) 5 MG tablet Take 10 mg by mouth daily10/24/2020 at Unknown time budesonide-formoterol (SYMBICORT) 160-4.5 MCG/ACT inhaler Inhale 2 puffs 2(two) times a day 10/25/2020 at Unknown time levofloxacin (LEVAQUIN) 500 MG tablet Take 500 mg by mouth daily 10/25/2020at Unknown time Loratadine 10 MG CAPS Take 1 capsule by mouth daily 10/25/2020 at Unknowntime nystatin (MYCOSTATIN) 269990 UNIT/ML suspension Take 500,000 Units by mouth 4(four) times a day 10/25/2020 at Unknown time omeprazole (PRILOSEC) 20 MG capsule Take 20 mg by mouth daily 10/24/2020 atUnknown time Vilazodone HCl (VIIBRYD) 20 MG TABS Take 20 mg by mouth 10/25/2020 at UnknowntimeAllergies:Tylenol 8 hour [acetaminophen] and Adhesive tapeFamily History:No family history on file.Social History:Social HistoryTobacco Use Smoking status: Not on fileSubstance Use Topics Alcohol use: Not on file Drug use: Not on fileReview of Systems:All systems were reviewed and found negative except for those mentioned in theHPI.Physical Exam:Vital Signs: Temp: [98.7 F] 98.7 FHeart Rate: [92] 92Resp: [16] 16BP: (121)/(86) 121/86General appearance: Pleasant, comfortable, not in acute distress.HEENT: Normocephalic, atraumatic, conjunctivae clear, EOM's intactLungs: Clear to auscultation bilaterally.Cardiovascular: Heart regular rate and rhythm, S1, S2 normal, no murmur, click,rub or gallopAbdomen: Soft, nontender, bowel sounds present.Extremities: extremities normal, atraumatic, no cyanosis or edemaLabs, Imaging and Other Diagnostics:Diagnostic tests reviewed:No new labsSignature: Leann Stinson, MDDate: October 25, 2020Time: 1:38 PM Name Value Range Interpretation Code Description Data Julisa rce(s) Supporting Document(s) ID Date Data Source [id number] 10/21/2020 10:00:00 AM EST [facility] Name Value Range Interpretation Code Description Data Julisa rce(s) Supporting Document(s) SARS coronavirus 2 RNA [facility] This lab was ordered by [facility] and reported by [facility]. ID Date Data Source [id number] 10/23/2020 01:10:51 AM EST [facility] Name Value Range Interpretation Code Description Data Julisa rce(s) Supporting Document(s) SARS-COV-2 JAQUELIN [facility] Not DetectedReference range: Not Detecte d This nucleic acid amplification test was developed and its performance characteristics determined by [facility]. Nucleic acid amplification tests include PCR and TMA. This test has not been FDA cleared or approved. This test has been authorized by FDA under an Emergency Use Authorization (EUA). This test is only authorized for the duration of time the declaration that circumstances exist justifying the authorization of the emergency use of in vitro diagnostic tests for detection of SARS-CoV-2 virus and/or diagnosis of COVID-19 infection under section 564(b)(1) of the Act, 21 U.S.C. 360bbb-3(b) (1), unless the authorization is terminated or revoked sooner. When diagnostic testing is negative, the possibility of a false negative result should be considered in the context of a patient's recent exposures and the presence of clinical signs and symptoms consistent with COVID- 19. An individual without symptoms of COVID- 19 and who is not shedding SARS -CoV-2 virus would expect to have a negative (not detected) result in this assay. Performed At: [place], [place] [id number] Chayito Anton PhD Ph:[phone] ID Date Data Source [id number] 09/20/2020 04:44:00 PM EDT [facility] Name Value Range Interpretation Code Description Data Julisa rce(s) Supporting Document(s) Lab - Specimen Rejec Laboratory test result [facility] ([facility]) DID NOT SEND MICAH TOPS- ONLY SST Test(s) Ordered Laboratory test result [facility] ([facility]) DID NOT SEND MICAH TOPS- ONLY SST Rejection Reason Laboratory test result [facility] ([facility]) DID NOT SEND MICAH TOPS- ONLY SST ID Date Data Source [id number] 09/20/2020 04:44:00 PM EDT [facility] Name Value Range Interpretation Code Description Data Julisa rce(s) Supporting Document(s) LAB - SPECIMEN REJECTION [facility] Specimen Integrity/Specimen Recollection The patient sample needs to be resubmitted for the following reason: Test(s) Ordered HEP C ANTIBODY W/REFLE C [facility] Rejection Reason No Spec Received [facility] { One or more of the tests you ordered cannot be performed.{ Please recollect, reorder, and resubmit if needed. ID Date Data Source [id number] 09/20/2020 11:55:00 AM EDT [facility] ([facility]) Name Value Range Interpretation Code Description Data Julisa rce(s) Supporting Document(s) Laboratory test finding (navigational concept) Laboratory test resu lt 0.0-0.9 [facility] ID Date Data Source [id number] 09/23/2020 02:02:00 PM EDT [facility] Name Value Range Interpretation Code Description Data Julisa rce(s) Supporting Document(s) Hepatitis C virus Ab Signal/Cutoff in Serum or Plasma by Immunoassay <0.1 s/coratio 0.0-0.9 [facility] ID Date Data Source [id number] 09/23/2020 02:05:00 PM EDT [facility] Value Range Interpretation Code Description Data Julisa rce(s) Supporting Document(s) Herpes simplex virus 1 IgG Ab [Units/volume] in Serum by Immunoassay 43.10 index 0.00-0.90 H [facility] Negative <0.91 Equivocal 0.91 - 1.09 Positive >1.09 Note: Negative indicates no antibodies detected to HSV-1. Equivocal may suggest early infection. If clinically appropriate, retest at later date. Positive indicates antibodies detected to HSV-1. Herpes simplex virus 2 IgG Ab [Units/volume] in Serum by Immunoassay <0.91 index 0.00-0.90 [facility] Negative <0.91 Equivocal 0.91 - 1.09 Positive >1.09 Note: Negative indicates no antibodies detected to HSV-2. Equivocal may suggest early infection. If clinically appropriate, retest at later date. Positive indicates antibodies detected to HSV-2. ID Date Data Source [id number] 09/23/2020 02:02:00 PM EDT [facility] Name Value Range Interpretation Code Description Data Julisa rce(s) Supporting Document(s) HIV 1+2 Ab+HIV1 p24 Ag [Presence] in Serum or Plasma b y Immunoassay Non Reactive Non Reactive [facility] ID Date Data Source [id number] 09/23/2020 02:02:00 PM EDT [facility] Name Value Range Interpretation Code Description Data Julisa rce(s) Supporting Document(s) Hepatitis B virus surface Ab [Presence] in Serum Reactive [facility] Non Reactiv e: Inconsistent with immunity, less than 10 mIU/mL Reactive: Consistent with immunity, greater than 9.9 mIU/mL ID Date Data Source [id number] 09/20/2020 09:13:00 PM EDT [facility] Name Value Range Interpretation Code Description Data Julisa rce(s) Supporting Document(s) Treponema pallidum Ab [Presence] in Serum NON-REACTIVE NORMAL:NON LYNETTE CTIVE [facility] ID Date Data Source [id number] 09/20/2020 08:15:00 AM EDT [facility] ([facility]) Name Value Range Interpretation Code Description Data Julisa rce(s) Supporting Document(s) Hepatitis B virus surface Ab [Units/volume] in Serum b y Radioimmunoassay (WAGNER) Laboratory test result [facility] ([facility]) .~.~<DG1.3.1>Z01.419</DG1.3.1><DG1.3.1>Z01.419</DG1.3.1><DG1.3.1>Z01.419</DG1.3. 1><D ID Date Data Source [id number] 09/20/2020 08:15:00 AM EDT [facility] ([facility]) Name Value Range Interpretation Code Description Data Julisa rce(s) Supporting Document(s) HSV 1 IgG, Type Spec 43.10 index 0.00-0.90 Above high normal [facility] ([facility]) .~.~<DG1.3.1>Z01.419</DG1.3.1><DG1.3.1>Z01.419</DG1.3.1><DG1.3.1>Z01.419</DG1.3. 1><D HSV 2 IgG, Type Spec Laboratory test result 0.00-0.90 [facility] ([facility]) .~.~<DG1.3.1>Z01.419</DG1.3.1><DG1.3.1>Z01.419</DG1.3.1><DG1.3.1>Z01.419</DG1.3. 1><D ID Date Data Source [id number] 09/20/2020 08:15:00 AM EDT [facility] ([facility]) Name Value Range Interpretation Code Description Data Julisa rce(s) Supporting Document(s) HIV Screen 4thGeneration wRfx Laboratory test result [facility] ([facility]) .~.~<DG1.3.1>Z01.419</DG1.3.1><DG1.3.1>Z01.419</DG1.3.1><DG1.3.1>Z01.419</DG1.3. 1><D ID Date Data Source [id number] 09/20/2020 08:15:00 AM EDT [facility] ([facility]) Name Value Range Interpretation Code Description Data Julisa rce(s) Supporting Document(s) Treponema pallidum Ab [Presence] in Serum Laboratory test result [facility] ([facility]) .~.~<DG1.3.1>Z01.419</DG1.3.1><DG1.3.1>Z01.419</DG1.3.1><DG1.3.1>Z01.419</DG1.3. 1><D ID Date Data Source [id number] 09/20/2020 08:15:00 AM EDT [facility] ([facility]) Name Value Range Interpretation Code Description Data Julisa rce(s) Supporting Document(s) Laboratory test finding (navigational concept) Laboratory test result [facility] ([facility]) ID Date Data Source [id number] 09/08/2020 11:07:00 AM EDT [facility] ([facility]) Name Value Range Interpretation Code Description Data Julisa rce(s) Supporting Document(s) Gonococcus by Jaquelin Laboratory test result [facility] ([facility]) ADD TRICH~.~.~<DG1.3.1>Z01.419</DG1.3.1><DG1.3.1>Z01.419</DG1.3.1><DG1.3.1>Z01.419</ DG1.3.1> Chlamydia by Jaquelin Laboratory test result [facility] ([facility]) ADD TRICH~.~.~<DG1.3.1>Z01.419</DG1.3.1><DG1.3.1>Z01.419</DG1.3.1><DG1.3.1>Z01.419</ DG1.3.1> Trich vag by Jaquelin Laboratory test result [facility] ([facility]) ADD TRICH~.~.~<DG1.3.1>Z01.419</DG1.3.1><DG1.3.1>Z01.419</DG1.3.1><DG1.3.1>Z01.419</ DG1.3.1> ID Date Data Source [id number] 09/08/2020 11:07:00 AM EDT [facility] ([facility]) Name Value Range Interpretation Code Description Data Julisa rce(s) Supporting Document(s) Cytology report of Cervical or vaginal smear or scrapi ng Cyto stain.thin prep Laboratory test result [facility] ([facility]) ADD TRICH~.~.~<DG1.3.1>Z01.419</DG1.3.1><DG1.3.1>Z01.419</DG1.3.1><DG1.3.1>Z01.419</ DG1.3.1> ID Date Data Source [id number] 09/10/2020 08:08:00 AM EDT [facility] Name Value Range Interpretation Code Description Data Julisa rce(s) Supporting Document(s) Chlamydia trachomatis rRNA [Presence] in Unspecified specimen by Probe and target amplification method Negative Negative [facility] Neisseria gonorrhoeae rRNA [Presence] in Unspecified specimen by Probe and target amplification method Negative Negative [facility] Trichomonas vaginalis DNA [Presence] in Unspecified specimen by Probe and target amplification method Negative Negative [facility] ID Date Data Source [id number] 08/30/2020 12:49:00 PM EDT [facility] [address] [place] [address] PHONE: [phone] FAX: [phone] Name .................. : THERESA Brown Acct Number.................. : [id number] ROOM. ................. : [facility] MR Number ................... : [id number] Stay type ............. : E/R Discharge Date......... ... : 08/29/20 Admit Date ......... : 08/29/20 Admit Phys .................... : MAINE MCKEON Date of ....... : 1990 Family Phys ................... : NIURKANAYLA SONIA Phone .................. : [phone] Age ................................ : 30 Film# .................. .:[id number] Sex ................................. : F Unsigned transcriptions are preliminary reports and do not represent a medical or legal document CT ABD & PELVIS W/ IV ONLY [id number] COMPLETE:08/29/20 22:07 DLA [id number] Reason(s): Lower and LLQ abdominal pain. CT OF THE ABDOMEN AND PELVIS WITH CONTRAST: INDICATION: Lower abdominal pain. FINDINGS: The chest space demonstrates partially visualized breast implants. The lung bases are clear. There is fatty infiltration of the liver. Normal contrast-enhanced CT appearance of the spleen, pancreas, adrenal glands and left kidney. The right kidney contains a 1.4 cm simple cyst. No gallbla dder wall thickening or biliary duct dilatation. The visualized bowel is relatively empty. Correlate with a history of recent diarrhea. The bladder is normal. There is a 3.3 x 4.2 cm left ovarian cyst, not completely characterized by this examination. No acute osseous abnormality. No lymphadenopathy. IMPRESSION: 4.2 x 3.3 cm left ovarian cyst, not completely characterized on this examination. Relatively empty colon. Correlate with a recent history of diarrhea. Fatty liver. Page 1 of [address] [facility] [address] [place] [address] PHONE: [phone] FAX: [phone] Name .................. : THERESA Brown Acct Number.................. : [id number] [facility] ................. [facility] Number ................... : [id number] Stay type ............. : E/R Discharge Date......... ... : 08/29/20 Admit Date ......... : 08/29/20 Admit Phys .................... : MAINE MCKEON Date of ....... : 1990 Family Phys ................... : JOSÉ LUIS SCOTT Phone .................. : [phone] Age ................................ : 30 Film# .................. .:[id number] Sex ................................. : F Unsigned transcriptions are preliminary reports and do not represent a medical or legal document CT ABD & PELVIS W/ IV ONLY [id number] COMPLETE:08/29/20 22:07 DLA [id number] Reason(s): Lower and LLQ abdominal pain. While performing the above CT examination, radiation dose reduction was accomplished utilizing automated exposure control, adjusting of the mA and kV based on the patient's body size and/or the use of imperative reconstructive techniques. CT dose: 1372.1 mGycm Contrast agent in mL: 75 Isovue 370 Method of administration: Intravenous Electronically Reviewed and Signed By Sebastián Hayward M.D. , 08/30/20 12:49, [facility] Transcribe Initials: YANELY , Transcribe Date: 08/29/20 22:54, Dictation Date: Copy for: LAURA Brown via fax Copy for: EMERGENCY DEPT via modem Copy for: 710 MED REC DISCHARGED Page 2 of 2 Name Value Range Interpretation Code Description Data Julisa rce(s) Supporting Document(s) ID Date Data Source [id number] 08/29/2020 07:05:00 PM EDT [facility] 1 OrderSheet [facility] [address] [place] [address] Phone #: ext- [phone] 08/29/2020 18:51 Patient: KATALINA TERAN Sex: F : 1990 Age: 30yWEIGHT:98.8 kg (S) HEIGHT:62 inches (S) BMI:39.9 STATUS:Unknown status [id number]: Tylenol with Codeine #4CHIEF COMPLAINT: abdominal painDIAGNOSIS: Cyst of ovaryLAB ORDERSOrder Description Priority Entered Acknowledged InitialedUrinalysis (Clean STAT 19:30 08/29/2020 19:31 Devon Her) Her, Shantal Shantal R.N. R.N.; Per protocol ( Other ); [employer] M.D.HCG Urine Qual STAT 19:30 08/29/2020 19:31 Arden Her Rachel Rachel R.N. R.N.; Per protocol ( Other ); [employer] M.D.CBC w Diff STAT 19:42 08/29/2020 19:42 Olga Espinoza, Latah Azul R.N. R.N.; Per protocol; [employer] M.D.CMP STAT 19:42 08/29/2020 19:42 Olga Espinoza, Latha Azul R.N. R.N.; Per protocol; [employer] M.D.Lipase STAT 19:42 08/29/2020 19:42 Olga, Olga, Latha Azul R.N. R.N.; Per protocol; [employer] M.D.DIAGNOSTIC STUDY ORDERSOrder Description Priority Entered Acknowledged InitialedCT Abd PEL W/ IV STAT 20:23 08/29/2020 20:24 Olga,Contrast Only Richard RODRIGUEZ; Latha Elizabeth(Oxygen?(No)) 2 OrderSheet [facility] Emergency Department [address] [place] [address] Phone #: ext- [phone] 08/29/2020 18:51 Patient: KATALINA TERAN Sex: F : 1990 Age: 30y(IV?(Yes)) Reason for Study: Lower and LLQ abdominal pain.MEDICATION/IV/DRIP/FLUID ORDERSOrder Description Priority Entered Acknowledged InitialedAcetaminophen 1 g 20:08 08/29/2020 20:15 Olga,PO X1 dose: 1000 Richard Azul R.N.mg (NOW x1) Reason for ordering with alerts: Clinical consideration given -- 20:08 08/29/2020 Richard Laura PAZofran IVP 4 mg 20:08 08/29/2020 20:14 Richard Espinoza; Latha Elizabeth Reason for ordering with alerts: Clinical consideration given -- 20:08 08/29/2020 Richard GAYLE IV : Bolus 1000 20:23 08/29/2020 20:36 Olga,mL, then 125 mL/hr Richard RODRIGUEZ; Latha Elizabeth(NOW x1)GENERAL ORDERSOrder Description Priority Entered Acknowledged InitialedNPO 19:59 08/29/2020 20:02 Richard Espinoza; Latha ElizabethSaline Lock 19:59 08/29/2020 20:02 Richard Espinoza; Latha Elizabeth[Electronically signed by Richard Sanchez (21:54 08/29/2020)][Electronically signed by Dorinda Lau R.N. (22:20 08/29/2020)][Electronically locked by Dorinda Lau R.N. (22:20 08/29/2020)] Name Value Range Interpretation Code Description Data Julisa rce(s) Supporting Document(s) ID Date Data Source [id number] 08/29/2020 07:05:00 PM EDT [facility] 1 Medication Reconciliation Report [facility] Department [address] [place] [address] Phone #: ext- [phone] 08/29/2020 18:51 Patient: KATALINA TERAN Sex: F : 1990 Age: 30yWeight: 98.8 kgHeight/Length: 62 in.BMI: 39.9ALLERGIES: Tylenol with Codeine #4The patient's Home Medications are listed below:CONTINUE TAKING THE FOLLOWING MEDICATIONS: Adderall Oral 10 mg, daily, in the afternoon Adderall XR Oral (30 mg), daily Cetirizine HCl Oral (10 mg), daily Omeprazole Oral 40 mg, daily Viibryd Oral (20 mg), daily ZyrtecThe source(s) of the original Home Medication information:Not obtained.The following Medications were given to the patient in the Emergency Department:Zofran [IVP] IVP 4 mg, administered: 08/29/2020 8:14:00 PMAcetaminophen [PO] PO 1000 mg, administered: 08/29/2020 8:15:00 PMNS [IV] IV Fluids bolus 1000 mL wide open, administered: 08/29/2020 8:36:00 PMThe following Medications were prescribed to the patient:None. Name Value Range Interpretation Code Description Data Julisa rce(s) Supporting Document(s) ID Date Data Source [id number] 08/29/2020 07:05:00 PM EDT [facility] 1 Medication Administration Record [facility] Emergency Department [address] [place] [address] Phone #: ext- [phone] 08/29/2020 18:51 Patient: KATALINA TERAN Sex: F : 1990 Age: 30yWeight: 98.8 kgHeight/Length: 62 inBMI: 39.9ALLERGIES: Tylenol with Codeine #4 Date/Time Medication Administered Medication OrderedGiven ACETAMINOPHEN [PO] Acetaminophen 1 g PO X1 dose:20:15 08/29/2020 Dose: 1000 mg PO 1000 mg (NOW x1)Latha Espinoza RNaheedNNaheedGiven ZOFRAN [IVP] (ONDANSETRON HCL) Zofran IVP 4 mg20:14 08/29/2020 Dose: 4 mg IVPMsaulragLatha alfonso RWhitney Site: #1 right forearmStart NS [IV] NS IV : Bolus 1000 mL, then 59897:[id number] 08/29/2020 Dose: IV Fluids mL/hr (NOW x1)Latha Espinoza R.N. Bolus: 1000 mL wide open---- Dispensed: 1000 mL bagStop Site: #1 right [id number] 08/29/2020Dorinda Lau R.N. Name Value Range Interpretation Code Description Data Julisa e(s) Supporting Document(s) ID Date Data Source [id number] 08/29/2020 07:05:00 PM EDT [facility] 1 General Instructions [facility] Emergency Department [address] [place] [address] Phone #: ext- [phone] 08/29/2020 18:51 Patient: KATALINA TERAN Sex: F : 1990 Age: 30ySingle left ovarian cyst. No ruptured ovarian cyst, torsion of ovary or polycystic ovarian disease.INSTRUCTIONSNo strenuous activity until better. Rest at home for two days. Do not work for two days.Drink plenty of fluids for the next 48 hours as needed. No sexual contact until symptoms resolve. Noalcohol. Do not smoke.(continue tylenol for as needed).Warnings: Further evaluation is necessary. It is very important to follow up with a healthcare provider.GENERAL WARNINGS: Return or contact your physician immediately if your condition worsens orchanges unexpectedly, if not improving as expected, or if other problems arise. SPECIFICALLY, return ifyou develop fever, vomiting, the inability to keep fluids down, blood in vomitus, blood in diarrhea, fainting,lightheadedness or vaginal bleeding; or for continued pain in the abdomen or pelvis.Your Current Medications: Your current home medications have been reviewed.CONTINUE TAKING THE FOLLOWING MEDICATIONS:Adderall Oral : 10 mg daily, in the afternoon.Adderall XR Oral : Capsule Extended Release 24 Hour 30 mg, daily.Cetirizine HCl Oral : Tablet 10 mg, daily.Omeprazole Oral : 40 mg daily.Viibryd Oral : Tablet 20 mg, daily.Zyrtec*.Follow-up:Follow up with your healthcare provider. Reason for referral: recommend financial institution president referral for L sided pelvic painand large L ovarian cyst. Summary of care provided to patient via paper.Understanding of the discharge instructions verbalized by patient. Expected course of illness, dis chargeinstructions, activity level, follow-up appointment and risks and benefits of treatment reviewed with patientand understanding verbalized. Agrees to plan of care. ADDITIONAL INFORMATIONOvarian Cysts 2 General Instructions [facility] Emergency Department [address] [place] [address] Phone #: ext- [phone] 08/29/2020 18:51 Patient: KATALINA TERAN Sex: F : 1990 Age: 30yThe ovaries are two small organs located on each side of a woman's uterus (womb). They are part ofthe female reproductive system. Ovarian cysts are sacs filled with fluid or tissue that form on or insidethe ovaries.Ovarian cysts are common in women, especially during childbearing years. There are different typesof cysts. Most are harmless (benign) and go away on their own. They often cause no symptoms. Ifsymptoms do occur, they can include mild pain or pressure in the lower belly (abdomen).Cysts that are large or break (rupture) may cause more severe pain and symptoms. In these cases,you may need hospital care or treatment such as surgery. You may need more extensive treatment ifa cyst causes an ovary to twist (called torsion) or if your doctor suspects your cyst is cancerous. Keepin mind that most cysts are not cancerous, however.General care To help relieve pain, your healthcare provider may recommend using iyct-[id number] pain medicine. If needed, your provide may prescribe stronger pain medicine. Depending on the type of cyst you have, your healthcare provider may advise taking control pills. These help shrink cysts in certain cases. They may also help prevent new cysts from forming. Be sure to take these medicines as directed if they are prescribed. Your healthcare provider may advise you to watch your symptoms over time to see if they go away or worsen. Regular ultrasound tests may also be advised. These can help check if a cyst goes away or grows in size.Follow-up careFollow up with your healthcare provider, or as advised. 3 General Instructions [facility] Emergency Department [address] [place] [address] Phone #: ext- [phone] 08/29/2020 18:51 Patient: KATALINA TERAN Sex: F : 1990 Age: 30yWhen to seek medical adviceCall your healthcare provider right away if any of these occur: Pain worsens or fails to get better with home treatment Fever of 100.4F (38C) or higher (or other fever amount directed by your healthcare provider) Nausea and vomiting Weakness, dizziness, or fainting Abnormal vaginal bleeding [phone] [employer]. [address] [place] [address]. All rights reserved. This information is not intended as asubstitute for professional medical care. Always follow your healthcare professional's instructions. You have been given the following additional information: Ovarian Cyst No strenuous activity until better. Rest at home for two days. Do not work for two days.(Electronically signed by MICHAEL Candelaria 08/29/2020 21:54) Name Value Range Interpretation Code Description Data Julisa rce(s) Supporting Document(s) ID Date Data Source [id number] 08/29/2020 07:05:00 PM EDT [facility] 1 Clinical Report - Nurses [facility] Emergency Department [address] [place] [address] Phone #: ext- [phone] 08/29/2020 18:51 Patient: KATALINA TERAN Sex: F : 1990 Age: 30yTRIAGEArrived by private vehicle. Historian: patient.Acuity: LEVEL 3.Chief Complaint: ABDOMINAL PAIN and NAUSEA.This started just prior to arrival. Relates location as in the left pelvic area. ( Pt states 30 minutes ago shetammy having sharp L pelvic pain. She states she has had ovarian cysts in the past that ruptured, and shebelieves that is what this is.).Treatment RN MED SURG:None.SEPSIS SCREEN: SIRS Screen negative. Sepsis Screen negative. No suspected or confirmed signs ofinfection present.MENDOZA COMA SCORE: 15- eyes open- spontaneous (4); best verbal response- oriented (5); bestmotor response- obeys commands (6). --19:01 08/29/20 Shantal Her R.N.18:52 08/29/20. BP: 157/102. MAP: 120. HR: 89. RR: 20. O2 saturation: 96%. Temp: 97.4 F. Pain levelnow: 08/04. --19:01 08/29/20 Shantal Her R.N.Acuity: LEVEL 3.19:26 08/29/20. --19:31 08/29/20 Shantal Her R.N.Weight: 98.8 kg stated. Height/Length: 62 inches Per Patient. BMI: 39.9. --19:00 08/29/20 Shantal Her R.N.MedicationsAdderall XR Oral (Capsule Extended Release 24 Hour 30 mg), daily. --18:55 08/29/20 Shantal Her R.N. Viibryd Oral (Tablet 20 mg), daily. --18:55 08/29/20 Shantal Her R.N. Omeprazole Oral 40 mg, daily. --18:55 08/29/20 Shanatl Her R.N. Zyrtec. --18:56 08/29/20 Shantal Her R.N. Cetirizine HCl Oral (Tablet 10 mg), daily. --18:56 08/29/20 Shantal Her R.N. Adderall Oral 10 mg, daily, in the afternoon. --19:18 08/29/20 Shantal Her R.N.The following entry was struck by Shantal Her R.N., 19:18 (08/29/20) Reason - other. Adderall Oral (Tablet 10 mg), daily. --18:55 08/29/20 Shantal Her R.N. .Allergies 2 Clinical Report - Nurses [facility] Department [address] [place] [address] Phone #: ext- [phone] 08/29/2020 18:51 Patient: KATALINA TERAN Sex: F : 1990 Age: 30yTylenol with Codeine #4. --18:56 08/29/20 Shantal Her R.N.PROBLEMS:Heartburn.Anxiety disorder.Attent.Allergic Rhinitis. --18:58 08/29/20 Shantal Her R.N.Breast Cancer.ADHD - Attention Deficit Hyperactivity Disorder.Ovarian Cyst.Depression. --19:19 08/29/20 Shantal Her R.N.The following entry was modified by Shantal Her R.N., 19:19 08/29/20Breast Cancer . --18:57 08/29/20 Shantal Her R.N.The following entry was modified by Shantal Her R.N., 19:19 08/29/20Ovarian Cyst. --18:57 08/29/20 Shantal Her R.N.The following entry was modified by Shantal Her R.N., 19:19 08/29/20Depression. --18:57 08/29/20 Shantal Her R.N.The following entry was modified by Shantal Her R.N., 19:19 08/29/20ADHD - Attention Deficit Hyperactivity Disorder. --18:57 08/29/20 Shantal Her R.N..ADDITIONAL SURGERIES:Mastectomy. --18:58 08/29/20 Shantal Her R.N.HistorySOCIAL HX: Light tobacco smoker- less than 1/2 a pack per day. Occasional alcohol use. No drug use.She was offered HIV testing but declined and hepatitis C testing but declined. She has not traveledoutside the [place]Infectious disease exposure: No infectious disease exposure. The patient was not exposed to Coronavirus.SELF HARM ASSESSMENT: Self harm assessment was performed. The patient answered "no" to thequestion(s) "Have you recently felt down, depressed, or hopeless?", &qu ot;Do you have thoughts of harming orkilling yourself?", "Do you have a plan for harming or killing yourself?", "Have you recently had thoughtsabout harming or killing others?", "Do you have any dangerous items in your possession?", "Have younoticed less interest or pleasure in doing things?", "Are you here because you tried to hurt yourself?" and"Have you ever tried to hurt yourself before today?".ABUSE ASSESSMENT: No report of abuse.NUTRITIONAL RISK ASSESSMENT: The nutritional risk assessment revealed no deficiencies.FUNCTIONAL ASSESSMENT: Functional assessment: no impairments noted.LEARNING NEEDS ASSESSMENT: The learning needs assessment revealed no barriers. 3 Clinical Report - Nurses [facility] Department [address] [place] [address] Phone #: ext- [phone] 08/29/2020 18:51 Patient: KATALINA TERAN Sex: F : 1990 Age: 30y FALL RISK ASSESSMENT: Fall risk assessment completed. No risk factors identified. SKIN INTEGRITY ASSESSMENT: Skin integrity risk assessment completed. No skin integrity risk identified. --19:01 08/29/20 Shantal Her R.N. PAST MEDICAL HX: Immunizations: up-to-date. Last normal menstrual period- Aug 14. --19:03 08/29/20 Shantal Her R.N. Interventions To waiting room. --19:01 08/29/20 Shantal Her R.N. To treatment room. --19:25 08/29/20 Shantal Her R.N. 19:26 08/29/20. To treatment room. --19:31 08/29/20 Shantal Her R.N. PHYSICAL ASSESSMENTAmbulatory to room. Patient gowned.GENERAL / NEURO / PSYCH: Alert. Oriented X 4. Appears in no acute distress. Appears in pain.HEENT: Mucous membranes are pink.RESPIRATORY: Respirations not labored. Breath sounds within normal limits.CVS: Normal sinus rhythm noted. Capillary refill less than 2 seconds.GI / : Abdomen soft and nontender. Bowel sounds within normal limits. No abdominal distention. Nonausea noted. No emesis noted. ( left lower abdominal pain radiates to left pelvic. Hx of ovarian cystsand rupture, states feels similar now.).SKIN: Skin is warm and dry. --19:29 08/29/20 Latha Espinoza R.N.NURSING PROGRESS NOTESPatient gowned. Reassurance given. Two patient identifiers checked. Call light placed in reach. Siderails up x 2. Bed placed in lowest position. Brakes of bed on. --19:28 08/29/20 Latha Espinoza R.N. 19:41 08/29/2020 Site #1 started via IV in the right forearm with an 20g angiocath, with aseptic technique; one attempt. Blood drawn: rainbow set. Sent to the lab. Saline lock flushed with 10 mL saline. --19:41 08/29/20 Latha Espinoza R.N. 20:14 08/29/2020 Zofran (Ondansetron HCl) IVP 4 mg given via site #1. Allergies verified and confirmed 5 rights. IV patency established. IV site checked: no pain, redness, or swelling. IV flushed thoroughly pre- and post-medication administration. IVP given by RN. Information reviewed with patient. Verbalizes understanding. --20:14 08/29/20 Latha Espinoza R.N. 20:15 08/29/2020 Acetaminophen PO 1000 mg given. Allergies verified and confirmed 5 rights. Information reviewed with patient. Verbalizes understanding. --20:15 08/29/20 Latha Espinoza R.N. 20:36 08/29/2020 Started bag #1 1000 mL IV Fluids NS; bolus of 1000 mL wide open via site #1 via IV 4 Clinical Report - Nurses [facility] Department [address] [place] [address] Phone #: ext- [phone] 08/29/2020 18:51 Patient: KATALINA TERAN Sex: F : 1990 Age: 30y pump. Allergies verified and confirmed 5 rights. IV patency established. IV site checked: no pain, redness, or swelling. IV flushed thoroughly pre- and post-medication administration. Information reviewed with patient. Verbalizes understanding. --20:36 08/29/20 Latha Espinoza R.N. 22:19 08/29/2020 IV Fluids NS via IV site #1 Discontinued: bag #1 infused. Total amount infused: 1000 mL. IV patency established. IV site checked: no pain, redness, or swelling. IV flushed thoroughly. --22:19 08/29/20 Dorinda Lau R.N.DISPOSITION / DISCHARGE 22:18 08/29/2020 Site #1 removed upon discharge. --22:18 08/29/20 Dorinda Lau R.N. Departure time: 22:18 08/29/2020. Condition at departure: unchanged. No learning barriers present. Discharge instructions provided and reviewed with the patient. Reviewed referrals. Patient verbalized understanding. Written instructions provided in [place]. The patient was discharged by the physician as sistant. She was discharged home. She left ambulatory and via private vehicle. --22:18 08/29/20 Dorinda Lau R.N. 22:17 08/29/20. BP: 137/92. HR: 91. RR: 20. O2 saturation: 97%. Temp: 97.6 F. Pain level now 06/03. --22:18 08/29/20 Dorinda Lau R.N.Locked/Released at 08/29/2020 22:20 by Dorinda Lau R.N. Name Value Range Interpretation Code Description Data Julisa rce(s) Supporting Document(s) ID Date Data Source [id number] 08/29/2020 07:05:00 PM EDT [facility] 1 Clinical Report - Physicians/Mid Levels [facility] Emergency Department [address] [place] [address] Phone #: ext- [phone] 08/29/2020 18:51 [id number] Sex[facility] F : 1990 Age: 30y Time Seen: 19:54 08/29/2020. Arrived- By private vehicle. Historian- patient. Disposition decision: 21:51 08/29/2020.HISTORY OF PRESENT ILLNESS Chief Complaint: ABDOMINAL PAIN. This started today 1 1/2 hours ago; lower abdominal pain L sided pelvic pain for several hours with nausea. No vomiting or known fever. No diarrhea. It is described as sharp and it is described as located in the pelvic area and in the left pelvis. At its maximum, severity described as 8 / 10. When seen in the E.D., severity described as 8 / 10. The patient has had nausea. No loss of appetite, vomiting or diarrhea. No recent travel. Similar symptoms previously. Patient has had similar symptoms several times. Recent medical care: Not recently seen/assessed.REVIEW OF SYSTEMSNo constipation, black stools, hematemesis, difficulty with urination or pain with urination. No urinaryfrequency, abnormal bleeding, bloody stools, fever or headache. No sore throat, blurred vision, chestpain, difficulty breathing or cough. No joint pain, skin rash, chills or back pain. Last bowel movement:recently. The patient has not had weight loss.PAST HISTORYSee nurses notes. Problems: Anxiety Reaction. Breast Cancer. ADD - Attention Deficit Disorder. Acute Pain. Anemia. ADHD - Attention Deficit Hyperactivity Disorder. Other Disease. UTI - Urinary Tract Infection. Influenza. Pharyngitis. Ovarian Cyst. Endometriosis. Depression. H/O BREAST CA. Glaucoma. 2 Clinical Report - Physicians/Mid Levels [facility] Department [address] [place] [address] Phone #: ext- [phone] 18:51 Patient: KATALINA TERAN Sex: F : 1990 Age: 30y Heartburn. Anxiety disorder. Attent. Allergic Rhinitis. Additional Surgeries: BILAT BREAST RECONSTRUCTION. Dilatation Curettage [08/18/2018]. Ectopic . Exploratory laparotomy. Eye removal. Eye surgery. Hysteroscopy [08/17/2018]. Hysteroscopy. Laparoscopy. Laparotomy. LEFT FALL. TUBE REMOVAL. Mastectomy. RADIACAL BILAT MASTECTOMY [2014]. RIGHT ECTOPIC PREG TUBE REPAIR. RIGHT EYE REMOVAL [2002]. Salpingectomy. Uterine Ablation [08/18/2018]. Medications: Adderall Oral 10 mg, daily, in the afternoon. Cetirizine HCl Oral (Tablet 10 mg), daily. Zyrtec. Omeprazole Oral 40 mg, daily. Viibryd Oral (Tablet 20 mg), daily. Adderall XR Oral (Capsule Extended Release 24 Hour 30 mg), daily. Allergies: Tylenol with Codeine #4.SOCIAL HISTORYLight tobacco smoker. Occasional alcohol use. No drug use. No recent travel.ADDITIONAL NOTESThe nursing notes have been reviewed with agreement regarding the chief complaint, HPI, ROS, PMH andpatient medications and allergies.PHYSICAL EXAMVital Signs: 08/29/2020 18:52 BP: 157/102. MAP: 120. HR: 89. RR: 20. O2 saturation: 96%. Temp: 97.4F. Pain level now: 08/04. Have been reviewed as abnormal and appear to be correct. Hypertensive. 3 Clinical Report - Physicians/Mid Levels [facility] Department [address] [place] [address] Phone #: ext- [phone] 08/29/2020 18:51 Patient: KATALINA TERAN Sex: F : 1990 Age: 30y Mean arterial pressure- normal. Heart rate normal. Respiratory rate normal. Temperature normal. Oxygen saturation normal. Appearance: Alert. Oriented X3. No acute distress. Anxious. Appears to be in pain. Patient in mild distress. Eyes: Pupils equal, round and reactive to light. Eyes normal inspection. ENT: Ears normal. Nose normal. Pharynx normal. Neck: Normal inspection. Neck supple. CVS: Normal heart rate and rhythm. Heart sounds normal. Pulses normal. Respiratory: No respiratory distress. Painless inspiration. Breath sounds normal. Chest nontender. Abdomen: Soft. Moderate tenderness in the left lower quadrant. Bowel sounds normal. No organomegaly. No mass. Femoral pulses equal. Moderately obese. Back: Normal inspection. Skin: Skin warm and dry. Normal skin color. No rash. Normal skin turgor. Extremities: Extremities exhibit normal ROM. No lower extremity edema. Neuro: Oriented X 3. No motor deficit. No sensory deficit. Reflexes normal.LABS, X-RAYS, AND EKGAbdominal CT: 4.2 x 3.3 L ovarian cyst,. Study type: abdomen and pelvis. Abdominal CT performedwith IV contrast. The study was independently viewed by me and interpreted by the radiologist andcontemporaneously by me. Interpretation time: 21:50 08/29/2020.Laboratory Tests: Laboratory tests have been ordered, with results reviewed and considered in themedical decision making process. CBC w Diff: (GUCCI: 08/29/2020 19:37) ( MsgRcvd 08/29/2020 19:52) Final results Test Result Flag Units (Reference) CBC W/AUTOMATED DIFF COMPLETE BLOOD COUNT WBC 9.9 10/uL (4.2 - 11.0) RBC 4.55 10/uL (4.20 - 5.40) HEMOGLOBIN 13.9 g/dL (12.0 - 16.0) HEMATOCRIT 40.6 % (37.0 - 47.0) MCV 89.2 fL (81.0 - 101) MCH 30.5 pg (27.0 - 34.0) MCHC 34.2 g/dL (31.0 - 36.0) RDW 13.2 % (11.5 - 14.5) PLATELETS 285 10/uL (150 - 450) MPV 8.4 fL (7.4 - 10.4) NEUT 74.0 % (37.0 - 80.0) LYMPH 19.5 L % (25.0 - 40.0) MONO 4.1 % (3.0 - 8.0) EOS 1.6 % (0.0 - 7.0) BASO 0.4 % (0.0 - 2.5) %IG 0.4 H % (0.0 - 0.0) %NRBC 0.0 % (0.0 - 0.0) #NEUT 7.31 H 10/uL (2.00 - 6.90) #LYMPH 1.93 10/uL (0.60 - 3.40) #MONO 0.41 10/uL (0.00 - 0.90) #EOS 0.16 10/uL (0.00 - 0.70) #BASO 0.04 10/uL (0.00 - 0.20) #IG 0.04 10/uL (0.00 - 0.10) #NRBC 0.00 10/uL (0.00 - 0.00) MANUAL DIFF NOT INDICATED 4 Clinical Report - Physicians/Mid Levels [facility] Department [address] [place] [address] Phone #: ext- [phone] 08/29/2020 18:51 Patient: [facility]ATALINA [id number] Sex: F : 1990 Age: 30y RBC MORPH NOT INDICATEDCMP: (GUCCI: 08/29/2020 19:37) ( MsgRcvd 08/29/2020 20:11) Final results Test Result Flag Units (Reference) COMPREHENSIVE METABOLIC PANEL COMPREHENSIVE METABOLIC PANEL SODIUM 135 mEq/L (134 - 153) POTASSIUM 4.2 mEq/L (3.6 - 5.0) CHLORIDE 99 mEq/L (98 - 107) CO2 25 MEQ/L (22 - 30) GLUCOSE 139 H MG/DL (65 - 110) BUN 13 MG/DL (7 - 21) CREATININE 0.6 L MG/DL (0.7 - 1.5) BUN/CREAT 22 (8 - 27) TOTAL PROTEIN 7.0 G/DL (6.3 - 8.2) ALBUMIN 4.4 G/DL (3.9 - 5.0) GLOBULIN 2.6 GM/DL (2.4 - 3.2) A/G RATIO 1.7 (0.8 - 2.0) CALCIUM 9.3 MG/DL (8.4 - 10.2) TOTAL BILI <0.7 MG/DL (0.2 - 1.3) ALKALINE PHOS 89 U/L (38 - 126) SGOT/AST 31 U/L (5 - 40) SGPT/ALT 69 H U/L (7 - 56) ANION GAP 11.0 mmol/L (8.0 - 16.0) AGE 30 yrs NON-AA GFR >60 mL/min AFR AMER GFR >60 mL/min Male GFR Interprentation 20-49 yrs >60 mL/min Wygbir61-48 yrs >56 mL/min Normal 60-69 yrs >49 mL/min Normal 70-79yrs>42 mL/min Normal 80 and above >35 mL/min Normal Female GFRInterpretation 20-39 yrs >60 mL/min Normal 40-49 yrs >58 mL/minNormal 50-59 yrs >51 mL/min Normal 60-69 yrs >45 mL/min Ccirey60-50 yrs >39 mL/min Normal 80 and above >32 mL/min NormalLipase: (GUCCI: 08/29/2020 19:37) ( [facility] 08/29/2020 20:11) Final results Test Result Flag Units (Reference) LIPASE 18 U/L (13 - 60)Urinalysis: (GUCCI: 08/29/2020 19:22) ( [facility] 08/29/2020 19:48) Final results Test Result Flag Units (Reference) URINALYSIS URINALYSIS SOURCE R COLOR yellow (NORMAL: Yello CLARITY clear (NORMAL: Clear SPEC GRAVITY 1.020 (1.001 - 1.030 pH 6 (5 - 9) GLUCOSE NORM (NORMAL: Negat BILIRUBIN NEG (NORMAL: Negat KETONE NEG (NORMAL: Negat PROTEIN 15 (NORMAL: Negat NITRITE NEG (NORMAL: Negat BLOOD NEG (NORMAL: Negat LEUK EST NEG (NORMAL: Negat UROBILINOGEN NOR (less than 1.0 MICROSCOPIC See Below 5 Clinical Report - Physicians/Mid Levels [facility] Department [address] [place] [address] Phone #: ext- [phone] 08/29/2020 18:51 Patient: KATALINA TERAN Sex: F : 0 1990 Age: 30y WBC 0 - 1 (NORMAL: NONE RBC 0 - 1 (NORMAL: NONE EPITHELIAL FEW (NORMAL: NONE Beta-HCG, Qual Urine: (GUCCI: 08/29/2020 19:22) ( [facility] 08/29/2020 19:44) Final results Test Result Flag Units (Reference) HCG URINE QUAL NEGATIVE (NORMAL: NEGAT HCG URINE QL REENTER NEGATIVE (NORMAL: NEGAT { KIT LOT # [id number] ){ KIT EXP DATE 08.30.21 ){ PROCEDURAL CONTROL VALID ).PROGRESS AND PROCEDURESCourse of Care: 21:45 Aug 29 2020. Awaiting CTAB results. Disposition: Discharged in good and improved condition. Discharge decision based on the following: patient's condition is improved; patient is ambulatory; patient is active; patient's exam is improved; improving condition on repeat evaluation; social support is adequate; transportation is available; follow-up is available; clinical impression is consistent with outpatient treatment.CLINICAL IMPRESSION Single left ovarian cyst. No ruptured ovarian cyst, torsion of ovary or polycystic ovarian disease.INSTRUCTIONS No strenuous activity until better. Rest at home for two days. Do not work for two days. Drink plenty of fluids for the next 48 hours as needed. No sexual contact until symptoms resolve. No alcohol. Do not smoke. (continue tylenol for as need ed). Warnings: Further evaluation is necessary. It is very important to follow up with a healthcare provider. GENERAL WARNINGS: Return or contact your physician immediately if your condition worsens or changes unexpectedly, if not improving as expected, or if other problems arise. SPECIFICALLY, return if you develop fever, vomiting, the inability to keep fluids down, blood in vomitus, blood in diarrhea, fainting, lightheadedness or vaginal bleeding; or for continued pain in the abdomen or pelvis. Your Current Medications: Your current home medications have been reviewed. CONTINUE TAKING THE FOLLOWING MEDICATIONS: Adderall Oral : 10 mg daily, in the afternoon. Adderall XR Oral : Capsule Extended Release 24 Hour 30 mg, daily. Cetirizine HCl Oral : Tablet 10 mg, daily. 6 Clinical Report - Physicians/Mid Levels [facility] Emergency Department [address] [place] [address] Phone #: [phone] 08/29/2020 18:51 Patient: KATALINA TERAN Sex: F : 1990 Age: 30y Omeprazole Oral : 40 mg daily. Viibryd Oral : Tablet 20 mg, daily. Zyrtec*. Follow-up: Follow up with your healthcare provider. Reason for referral: recommend financial institution president referral for L sided pelvic pain and large L ovarian cyst. Summary of care provided to patient via paper. Understanding of the discharge instructions verbalized by patient. Expected course of illness, discharge instructions, activity level, follow-up appointment and risks and benefits of treatment reviewed with patient and understanding verbalized. Agrees to plan of care.(Electronically signed by MICHAEL Candelaria 08/29/2020 21:54) Name Value Range Interpretation Code Description Data Julisa rce(s) Supporting Document(s) ID Date Data Source [id number] 08/29/2020 08:11:00 PM EDT [facility] Name Value Range Interpretation Code Description Data Julisa rce(s) Supporting Document(s) Lipase [Enzymatic activity/volume] in Serum or Plasma 18 U/L 13 - 60 [facility] ID Date Data Source [id number] 08/29/2020 08:11:00 PM EDT [facility] Name Value Range Interpretation Code Description Data Julisa rce(s) Supporting Document(s) COMPREHENSIVE METABOLIC PANEL [facility] COMPREHENSIVE METABOLIC PANEL Sodium [Moles/volume] in Serum or Plasma 135 mEq/L 134 - 153 [facility] Potassium [Moles/volume] in Serum or Plasma 4.2 mEq/L 3.6 - 5.0 [facility] Chloride [Moles/volume] in Serum or Plasma 99 mEq/L 98 - 107 [facility] Carbon dioxide, total [Moles/volume] in Serum or Plasma 25 MEQ/L 22 - 30 [facility] Glucose [Mass/volume] in Serum or Plasma 139 MG/DL 65 - 110 H [facility] BUN 13 MG/DL 7 - 21 [facility] Creatinine [Mass/volume] in Serum or Plasma 0.6 MG/DL 0.7 - 1.5 L [facility] BUN/CREAT 22 8 - 27 [facility] Protein [Mass/volume] in Serum or Plasma 7.0 G/DL 6.3 - 8.2 [facility] Albumin [Mass/volume] in Serum or Plasma 4.4 G/DL 3.9 - 5.0 [facility] Globulin [Mass/volume] in Serum by calculation 2.6 GM/DL 2.4 - 3.2 [facility] A/G RATIO 1.7 0.8 - 2.0 [facility] Calcium [Mass/volume] in Serum or Plasma 9.3 MG/DL 8.4 - 10.2 [facility] Bilirubin.total [Mass/volume] in Serum or Plasma <0.7 MG/DL 0.2 - 1.3 [facility] Alkaline phosphatase [Enzymatic activity/volume] in Serum or Plasma 89 U/L 38 - 126 [facility] Aspartate aminotransferase [Enzymatic activity/volume] in Serum or Plasma 31 U/L 5 - 40 [facility] Alanine aminotransferase [Enzymatic activity/volume] in Seru m or Plasma 69 U/L 7 - 56 H [facility] Anion gap 3 in Serum or Plasma 11.0 mmol/L 8.0 - 16.0 [facility] AGE [address] [facility] NON-AA GFR >60 mL/min [facility] ital AFR AMER GFR >60 mL/min [facility] Male GFR In terprentation 20-49 yrs >60 mL/min Normal 50-59 yrs >56 mL/min Normal 60-69 yrs >49 mL/min Normal 70-79yrs >42 mL/min Normal 80 and above >35 mL/min Normal Female GFR Interpretation 20-39 yrs >60 mL/min Normal 40-49 yrs >58 mL/min Normal 50-59 yrs >51 mL/min Normal 60-69 yrs >45 mL/min Normal 70-79 yrs >39 mL/min Normal 80 and above >32 mL/min Normal ID Date Data Source [id number] 08/29/2020 07:51:00 PM EDT [facility] Name Value Range Interpretation Code Description Data Julisa rce(s) Supporting Document(s) CBC W/AUTOMATED DIFF [facility] COMPLETE BLOOD COUNT Leukocytes [#/volume] in Blood by Automated count 9.9 10^3/uL 4.2 - 1 1.0 [facility] Erythrocytes [#/volume] in Blood by Automated count 4.55 10^6/uL 4. 20 - 5.40 [facility] Hemoglobin [Mass/volume] in Blood 13.9 g/dL 12.0 - 16.0 [facility] Hematocrit [Volume Fraction] of Blood by Automated count 40.6 % 3 7.0 - 47.0 [facility] Erythrocyte mean corpuscular volume [Entitic volume] by Auto mated count 89.2 fL 81.0 - 101 [facility] Erythrocyte mean corpuscular hemoglobin [Entitic mass] by Automated count 30.5 pg 27.0 - 34.0 [facility] Erythrocyte mean corpuscular hemoglobin concentration [Mass/volume] by Automated count 34.2 g/dL 31.0 - 36.0 [facility] Erythrocyte distribution width [Ratio] by Automated count 13.2 % 11.5 - 14.5 [facility] Platelets [#/volume] in Blood by Automated count 285 10^3/uL 150 - 45 0 [facility] Platelet mean volume [Entitic volume] in Blood by Automated count 8.4 fL 7.4 - 10.4 [facility] Neutrophils/100 leukocytes in Blood by Automated count 74.0 % 37. 0 - 80.0 [facility] Lymphocytes/100 leukocytes in Blood by Manual count 19.5 % 25.0 - 40.0 L [facility] Monocytes/100 leukocytes in Blood by Automated count 4.1 % 3.0 - 8.0 [facility] Eosinophils/100 leukocytes in Blood by Automated count 1.6 % 0.0 - 7.0 [facility] Basophils/100 leukocytes in Blood by Automated count 0.4 % 0.0 - 2.5 [facility] %IG 0.4 % 0.0 - 0.[address] [facility] %NRBC 0.0 % 0.0 - 0.0 [facility] Neutrophils [#/volume] in Blood by Automated count 7.31 10^3/uL 2.00 - 6.90 H [facility] Lymphocytes [#/volume] in Blood by Automated count 1.93 10^3/uL 0.60 - 3.40 [facility] Monocytes [#/volume] in Blood by Automated count 0.41 10^3/uL 0.00 - 0.90 [facility] Eosinophils [#/volume] in Blood by Automated count 0.16 10^3/uL 0.00 - 0.70 [facility] Basophils [#/volume] in Blood by Automated count 0.04 10^3/uL 0.00 - 0.20 [facility] #IG 0.04 10^3/uL 0.00 - 0.10 [facility]spital #NRBC 0.00 10^3/uL 0.00 - 0.00 [facility] ospital MANUAL DIFF NOT INDICATED [facility] RBC MORPH NOT INDICATED [facility] ID Date Data Source [id number] 08/29/2020 07:48:00 PM EDT [facility] Name Value Range Interpretation Code Description Data Julisa rce(s) Supporting Document(s) [facility] URINALYSIS SOURCE R [facility] COLOR yellow NORMAL: Yellow [facility] ospital CLARITY clear NORMAL: Clear [facility] Specific gravity of Urine by Test strip 1.020 1.001 - 1.030 [facility] pH 6 5 - 9 [facility] Glucose [Mass/volume] in Urine by Test strip NORM NORMAL: Negat [facility] Bilirubin.total [Presence] in Urine by Test strip NEG NORMAL: Negative [facility] Ketones [Presence] in Urine by Test strip NEG NORMAL: Negative [facility] Protein [Mass/volume] in Urine by Test strip 15 NORMAL: Negat [facility] Nitrite [Presence] in Urine by Test strip NEG NORMAL: Negative [facility] BLOOD NEG NORMAL: Negative [facility] Leukocyte esterase [Presence] in Urine by Test strip NEG CHRIS L: Negative [facility] Urobilinogen [Mass/volume] in Urine by Test strip NOR less kya n 1.0 mg/dL [facility] MICROSCOPIC See Below [facility] ital WBC 0 - 1 NORMAL: NONE SEEN [facility] Erythrocytes [#/volume] in Urine by Test strip 0 - 1 NORMAL: NON E SEEN [facility] EPITHELIAL FEW NORMAL: NONE SEEN [facility] ID Date Data Source [id number] 08/29/2020 07:43:00 PM EDT [facility] Name Value Range Interpretation Code Description Data Julisa rce(s) Supporting Document(s) HCG URINE QUAL NEGATIVE NORMAL: NEGATIVE [facility] HCG URINE QL REENTER NEGATIVE NORMAL: NEGATIVE [facility] { KIT LOT # [id number] ){ KIT EXP DATE 08.30.21 ){ PROCEDURAL CONTROL VALID ) ID Date Data Source [id number] 07/28/2020 05:55:00 PM EDT [facility] Name Value Range Interpretation Code Description Data Julisa rce(s) Supporting Document(s) Hemoglobin A1c/Hemoglobin.total in Blood 6.2 % 4.4 - 6.1 H [facility] {A1]{HB] ID Date Data Source [id number] 07/28/2020 05:32:00 PM EDT [facility] Name Value Range Interpretation Code Description Data Julisa rce(s) Supporting Document(s) Thyrotropin [Units/volume] in Serum or Plasma by Detec tion limit <= 0.05 mIU/L 1.40 uIU/mL 0.47 - 5.01 [facility] Procedure Social History Code Duration Value Status Description Data Source(s ) ETOH Use 04/27/2021 12:00:00 AM EDT Rarely consumes alcohol com pleted Rarely consumes alcohol [facility] ([facility]) Smoking 04/27/2021 12:00:00 AM EDT Patient is a former smoker completed Patient is a former smoker [facility] ([facility]) Smoking 03/06/2021 12:00:00 AM EDT Patient is a former smoker completed Patient is a former smoker [facility] Alcohol intake 01/24/2021 12:00:00 AM EST Yes completed [facility] Smoking 01/24/2021 12:00:00 AM EST Former smoker completed Former smoker [facility] Alcohol intake 01/19/2021 12:00:00 AM EST Yes completed [facility] Smoking 01/19/2021 12:00:00 AM EST Former smoker completed Former smoker [facility] Alcohol intake 10/25/2020 12:00:00 AM EST Yes completed [facility] Smoking 10/25/2020 12:00:00 AM EST Former smoker completed Former smoker [facility] Vital Signs ID Date Data Source UNK Name Value Range Interpretation Code Description Data Source(s) Body mass index (BMI) [Ratio] 30.9 kg/m2 30.9 k g/m2 [facility] ([facility]) Systolic blood pressure 117 mm[Hg] 117 mm[Hg] M [facility] ([facility]) Diastolic blood pressure 83 mm[Hg] 83 mm[Hg] [facility] ([facility]) Heart rate 88 /min 88 /min [facility] Body height 61.5 [in_i] 61.5 [in_i] [facility] 5'1.50" Body weight 166.00 [lb_av] 166.00 [lb_av] [facility] ([facility]) Body temperature 97.5 [degF] 97.5 [degF] [facility] ([facility]) Body height 62.5 [in_i] 62.5 [in_i] [facility] 5'2.50" Body weight 185.38 [lb_av] 185.38 [lb_av] [facility] ([facility]) Systolic blood pressure 116 mm[Hg] 116 mm[Hg] [facility] ([facility]) Diastolic blood pressure 79 mm[Hg] 79 mm[Hg] [facility] ([facility]) Body mass index (BMI) [Ratio] 33.4 kg/m2 33.4 k g/m2 [facility] ([facility]) Heart rate 94 /min 94 /min [facility] Respiratory rate 18 /min 18 /min [facility] ( [facility]) Diastolic blood pressure 79 mm[Hg] 79 mm[Hg] [facility] Systolic blood pressure 117 mm[Hg] 117 mm[Hg] [facility] Heart rate 77 /min 77 /min [facility] Body temperature 37.22 Margo 37.22 Margo [facility] has heating packs on abdomen, blanket on . Respiratory rate 19 /min 19 /min [facility] Oxygen saturation in Arterial blood by Pulse oximetry 95 % 95 % [facility] Body height 154.9 cm 154.9 cm [facility] Body weight 95.41 kg 95.41 kg [facility] Body mass index (BMI) [Ratio] 39.74 kg/m2 39.74 kg/m2 [facility] Systolic blood pressure 148 mm[Hg] 148 mm[Hg] [facility] Diastolic blood pressure 97 mm[Hg] 97 mm[Hg] [facility] Heart rate 93 /min 93 /min [facility] Body temperature 36.17 Margo 36.17 Margo [facility] Body height 154.9 cm 154.9 cm [facility] Body weight 96.979 kg 96.979 kg [facility] Body mass index (BMI) [Ratio] 40.40 kg/m2 40.40 kg/m2 [facility] Systolic blood pressure 124 mm[Hg] 124 mm[Hg] [facility] Diastolic blood pressure 84 mm[Hg] 84 mm[Hg] [facility] Heart rate 93 /min 93 /min [facility] Body temperature 36.89 Margo 36.89 Margo [facility] Respiratory rate 18 /min 18 /min [facility] Oxygen saturation in Arterial blood by Pulse oximetry 93 % 93 % [facility] Body height 157.5 cm 157.5 cm [facility] Body weight 97.977 kg 97.977 kg [facility] Body mass index (BMI) [Ratio] 39.51 kg/m2 39.51 kg/m2 [facility] Body temperature 96.9 [degF] 96.9 [degF] [facility] ([facility]) Body weight 216.00 [lb_av] 216.00 [lb_av] [facility] T ([facility]) Body weight 97.978 kg 97.978 kg [facility] ([facility]) Body height 61.5 [in_i] 61.5 [in_i] [facility] ([facility]) 50" Body mass index (BMI) [Ratio] 40.1 kg/m2 40.1 k g/m2 [facility] ([facility]) Systolic blood pressure 128 mm[Hg] 128 mm[Hg] M [facility] ([facility]) Diastolic blood pressure 90 mm[Hg] 90 mm[Hg] [facility] ([facility]) Heart rate 104 /min 104 /min [facility] ([facility]) Body surface area Derived from formula 1.96 m2 1.96 m2 [facility] ([facility]) Body height 61.5 [in_i] 61.5 [in_i] [facility] " Body weight 221.00 [lb_av] 221.00 [lb_av] [facility] ([facility]) Body mass index (BMI) [Ratio] 41.1 kg/m2 41.1 k g/m2 [facility] ([facility]) Body mass index (BMI) [Ratio] 40.9 kg/m2 40.9 k g/m2 [facility] ([facility]) Systolic blood pressure 142 mm[Hg] 142 mm[Hg] M [facility] ([facility]) pt states "I just took my adderal" Diastolic blood pressure 92 mm[Hg] 92 mm[Hg] [facility] ([facility]) pt states "I just took my adderal" Heart rate 115 /min 115 /min [facility] ([facility]) Body temperature 97.1 [degF] 97.1 [degF] [facility] ([facility]) Body weight 220.00 [lb_av] 220.00 [lb_av] [facility] T ([facility]) Body weight 99.792 kg 99.792 kg [facility] ([facility]) Body height 61.5 [in_i] 61.5 [in_i] [facility] ([facility]) 5'50" Body surface area Derived from formula 1.98 m2 1.98 m2 [facility] ([facility]) Diastolic blood pressure 86 mm[Hg] 86 mm[Hg] [facility] ([facility]) Heart rate 85 /min 85 /min [facility] Respiratory rate 18 /min 18 /min [facility] ( [facility]) Systolic blood pressure 122 mm[Hg] 122 mm[Hg] M [facility] ([facility]) Body mass index (BMI) [Ratio] 39.5 kg/m2 39.5 k g/m2 [facility] ([facility]) Body weight 219.50 [lb_av] 219.50 [lb_av] [facility] ([facility]) Body height 62.5 [in_i] 62.5 [in_i] [facility] 5'2.50" Patient Treatment Plan of Care Planned Activity Planned Date Details Description Data Source (s) Ondansetron 4 MG Disintegrating Oral Tablet 01/23/2021 12:00:[address] [facility] Vitamin B 12 1 MG Oral Tablet 01/23/2021 12:00:[address] [facility] Simethicone 80 MG Chewable Tablet 01/23/2021 12:00:[address] [facility] Magnesium Hydroxide 80 MG/ML Oral Suspension 01/23/2021 12:00:[address] [facility] 0.4 ML Enoxaparin sodium 100 MG/ML Prefilled Syringe 12:00:[address] [facility] pediatric multivitamin-iron (POLY--ELAINA WITH IRON) 15 MG chewable tablet 01/23/2021 12:00:[address] [facility] Acetaminophen 325 MG Oral Tablet 01/23/2021 12:00:00 AM EST [facility] Acetaminophen 500 MG Oral Tablet [facility] Omeprazole 20 MG Delayed Release Oral Capsule [facility] Levofloxacin 500 MG Oral Tablet [facility] nystatin (MYCOSTATIN) 302742 UNIT/ML suspension [facility]
[2021-09-08 02:09] VITALS: BP 120/65
[2021-09-08] MEDS ORDERED: KETOROLAC 30 MG/ML 1ML VIAL IV ONE (04:10)
[2021-09-08] MEDS ORDERED: ACETAMINOPH W/CODEINE #3 TAB UD PO ONE (04:10)
[2021-09-08] MEDS ORDERED: ONDANSETRON 4MG/2ML VIAL IV ONE (04:50)
[2021-09-08 05:29] LABS: BASO % 0.1 % (0.0-1.0); EOS % 0.2 % (0.0-3.0); HEMATOCRIT 36.9 % (36.0-47.0); HEMOGLOBIN 12.7 g/dl (12.0-15.5); LYMPH # 2.6 10^3/uL (1.5-5.0); LYMPH % 28.8 % (24.0-44.0); MEAN CORPUSCULAR HEMOGLOBIN 32.4 pg (27.0-33.0); MEAN CORPUSCULAR HGB CONC 34.4 g/dl (32.0-36.5); MEAN CORPUSCULAR VOLUME 94.1 fl (80.0-96.0); MONO # 0.5 10^3/uL (0.0-0.8); MONO % 5.4 % (2.0-8.0); NEUTROPHILS # 5.8 10^3/uL (1.5-8.5); NEUTROPHILS % 64.9 % (36.0-66.0); PLATELET COUNT, AUTOMATED 316 10^3/uL (150-450); RED BLOOD COUNT 3.92 10^6/uL (4.00-5.40)
[2021-09-08 06:01] LABS: BLOOD UREA NITROGEN 9 MG/DL (7-18); CALCIUM LEVEL 8.7 MG/DL (8.5-10.1); CARBON DIOXIDE LEVEL 29 MEQ/L (21-32); CHLORIDE LEVEL 107 MEQ/L (98-107); CREATININE FOR GFR 0.56 MG/DL (0.55-1.30); GLOMERULAR FILTRATION RATE > 60.0 (>60); GLUCOSE, FASTING 82 MG/DL (70-100); MAGNESIUM LEVEL 1.7 MG/DL (1.8-2.4); POTASSIUM SERUM 3.8 MEQ/L (3.5-5.1); SODIUM LEVEL 143 MEQ/L (136-145)
--- OUTSIDE RECORDS SUMMARY | 2021-09-08 06:27 | CCD ---
Author Author [facility] Organization [facility] Address Unknown Phone Unavailable Care Team Providers Care Crew Foreman Name Role Phone [facility] Unavailable Unavailable PETRRENETTA VILLAFANA PA Unavailable Unavailable PETRBEV VILLAFANAE PA Unavailable Unavailable PETROFF RENETTA PA Unavailable Unavailable PETROFF, RENETTA PA [...] Unavailable Unavailable CHROSTOWSKI TE MD Unavailable Unavailable CHROSTOWSKI TE MD Unavailable Unavailable CHROSTOWSKI TE MD Unavailable Unavailable CHROSTOWSKI TE MD Unavailable Unavailable CHROSTOWSKI TE MD Unavailable Unavailable CHROSTOWSKI TE MD Unavailable Unavailable CHROSTOWSKI TE MD Unavailable Unavailable CHROSTOWSKI TE MD Unavailable Unavailable CHROSTOWSKI TE MD Unavailable Unavailable CHROSTOWSKI TE MD Unavailable Unavailable CHROSTOWSKI TE MD Unavailable Unavailable CHROSTOWSKI, TE MD [...] Unavailable Unavailable CHROSTOWSKI, TE MD Unavailable Unavailable TE TOSCANO MD Unavailable Unavailable TE TOSCANO MD Unavailable Unavailable TE TOSCANO MD Unavailable Unavailable TE TOSCANO MD Unavailable Unavailable TE TOSCANO MD Unavailable Unavailable TE TOSCANO MD Unavailable Unavailable TE TOSCANO MD Unavailable Unavailable TE TOSCANO MD Unavailable Unavailable SYMENOW, G CHRISTOPHER PA [...] Unavailable MOON, W KARSTEN PA Unavailable Unavailable Leann Stinson MD Unavailable Unavailable [...] Nizam, Rayees MD Unavailable Unavailable Nizam Rayjenifer GARCIA Unavailable Unavailable Nizam Rayjenifer MD Unavailable Unavailable Nizam, Rayees MD Unavailable Unavailable Nizam, Rayees MD Unavailable Unavailable Nizam, Rayjenifer MD Unavailable Unavailable Nizam Rayees MD Unavailable Unavailable Nizam Rayees MD Unavailable Unavailable Nizam Rayees MD Unavailable Unavailable Nizam, Rayjenifer MD Unavailable Unavailable Nizam, Rayees MD Unavailable Unavailable Nizam, Rayees MD Unavailable Unavailable Nizam, Rayees MD Unavailable Unavailable Nizam, Rayees MD Unavailable Unavailable Nizam, Rayees MD Unavailable Unavailable Nizam, Rayees MD Unavailable Unavailable Nizam, Rayees MD Unavailable Unavailable Nizam, Rayjenifer MD Unavailable Unavailable Nizam, Rayjenifer MD Unavailable Unavailable Nizam Rayjenifer MD Unavailable Unavailable Nizam Rayjenifer MD Unavailable Unavailable Nizam Rayees MD Unavailable Unavailable Nizam Rayjenifer MD Unavailable Unavailable Nizam Rayjenifer MD Unavailable Unavailable Nizam, Rayjenifer MD Unavailable Unavailable Nizam Rayjenifer MD Unavailable Unavailable Nizam Rayees MD Unavailable Unavailable Nizam Rayees MD Unavailable Unavailable Nizam, Rayees MD Unavailable Unavailable Nizam Rayjenifer MD Unavailable Unavailable Nizam, Rayjenifer MD Unavailable Unavailable Nizam, Rayjenifer MD Unavailable Unavailable Niradham Rayjenifer MD Unavailable Unavailable Niradham Rayjenifer MD Unavailable Unavailable Nizam Rayjenifer MD Unavailable Unavailable Nizam Rayjenifer MD Unavailable Unavailable Nizam Rayjenifer MD Unavailable Unavailable Nizam Rayjenifer MD Unavailable Unavailable Nizam Rayjenifer MD Unavailable Unavailable Niradham Rayjenifer MD Unavailable Unavailable Niradham Rayjenifer MD Unavailable Unavailable Nizam Rayjenifer MD Unavailable Unavailable Nizam, Rayees MD Unavailable Unavailable Nizam, Rayjenifer MD Unavailable Unavailable Nizam, Rayees MD Unavailable Unavailable Nizam, Rayees MD Unavailable Unavailable Nizam, Rayjenifer GARCIA Unavailable Unavailable Nizam Rayjenifer GARCIA Unavailable Unavailable Nizam, Rayjenifer GARCIA Unavailable Unavailable Nizam Rayjenifer GARCIA Unavailable Unavailable Nizam, Rayees MD Unavailable Unavailable Nizam, Rayjenifer MD Unavailable Unavailable Nizam, Rayees MD Unavailable Unavailable Nizam, Rayjenifer MD Unavailable Unavailable Nizam Rayjenifer GARCIA Unavailable Unavailable Nizam, Rayees MD Unavailable Unavailable Nizam, Rayjenifer MD Unavailable Unavailable Nizam, Rayees MD Unavailable Unavailable Leann Stinson MD Unavailable Unavailable Leann Stinson MD Unavailable Unavailable Leann Stinson MD Unavailable Unavailable Leann Stinson MD Unavailable Unavailable Leann Stinson MD Unavailable Unavailable Leann Stinson MD Unavailable Unavailable DESJARLAIS, LUCILA DRY GOODS INSPECTOR Unavailable Unavailable DESJARLAIS, LUCILA DRY GOODS INSPECTOR Unavailable Unavailable DESJARLAIS, LUCILA DRY GOODS INSPECTOR Unavailable Unavailable DESJARLAIS, LUCILA DRY GOODS INSPECTOR Unavailable Unavailable DESJARLAIS, LUCILA DRY GOODS INSPECTOR Unavailable Unavailable DESJARLAIS, LUCILA DRY GOODS INSPECTOR Unavailable Unavailable DESJARLAIS, LUCILA DRY GOODS INSPECTOR Unavailable Unavailable DESJARLAIS, LUCILA DRY GOODS INSPECTOR Unavailable Unavailable DESJARLAIS, LUCILA DRY GOODS INSPECTOR Unavailable Unavailable Casimiro LOVELL Unavailable Unavailable Commey, Efren Unavailable Unavailable Commey, [...] Unavailable EMERTON, A JUDY MD Unavailable Unavailable JOSÉ LUIS, Sloane KIM MD Unavailable Unavailable EMERTON, A JUDY GARCIA Unavailable Unavailable EMERTON, A JUDY MD Unavailable Unavailable EMERTON, A JUDY MD Unavailable Unavailable EMERTON, A JUDY MD Unavailable Unavailable EMERTON, A JUDY MD Unavailable Unavailable EMERTON, A JUDY MD Unavailable Unavailable EMERTON, A JUDY MD Unavailable Unavailable EMERTON, A JUDY MD Unavailable Unavailable EMERTON, A JUDY MD Unavailable Unavailable EMERTON, A JUDY MD Unavailable Unavailable EMERNAYLA, A JUDY GARCIA Unavailable Unavailable JOSÉ LUIS, Sloane KIM MD Unavailable Unavailable Amy Fletcher MD Unavailable [...] Unavailable Unavailable Amy Fletcher MD Unavailable Unavailable Johny, Tabitha Unavailable Johny, Tabitha Unavailable OFE, TERESITA MD Unavailable Unavailable OFE, [...] Unavailable Unavailable OFE, TERESITA MD Unavailable Unavailable OEF, TERESITA MD Unavailable Unavailable OFE, TERESITA MD [...] Unavailable Unavailable OFE, TERESITA MD Unavailable Unavailable TURRIN, GRUPO Unavailable Unavailable TURRIN, GRUPO Unavailable Unavailable TURRIN, GRUPO Unavailable Unavailable TURRIN, GRUPO Unavailable Unavailable DOMENICA, F MAGALIS GARCIA Unavailable Unavailable DOMENICA, F MAGALIS MD Unavailable Unavailable DOMENICA, F MAGALIS MD Unavailable Unavailable DOMENICA, F MAGALIS MD Unavailable Unavailable DOMENICA, F MAGALIS MD Unavailable Unavailable DOMENICA, F MAGALIS MD Unavailable Unavailable DOMENICA, F MAGALIS MD Unavailable Unavailable DOMENICA, F MAGALIS MD Unavailable Unavailable DOMENICA, F MAGALIS MD Unavailable Unavailable DOMENICA, F MAGALIS MD Unavailable Unavailable DOMENICA, F MAGALIS MD Unavailable Unavailable DOMENICA, F MAGALIS MD Unavailable Unavailable DOMENICA, F MAGALIS MD Unavailable Unavailable DOMENICA, F MAGALIS MD Unavailable Unavailable DOMENICA, F MAGALIS MD Unavailable Unavailable DOMENICA, F MAGALIS MD Unavailable Unavailable DOMENICA, F MAGALIS MD Unavailable Unavailable DOMENICA, F MAGALIS MD Unavailable Unavailable DOMENICA, F MAGALIS MD Unavailable Unavailable DOMENICA, F MAGALIS MD Unavailable Unavailable DOMENICA, F MAGALIS MD Unavailable Unavailable DOMENICA, F MAGALIS MD Unavailable Unavailable DOMENICA, F MAGALIS MD Unavailable Unavailable DOMENICA, F MAGALIS MD Unavailable Unavailable DOMENICA, F MAGALIS MD Unavailable Unavailable DOMENICA, F MAGALIS MD Unavailable Unavailable DOMENICA, F MAGALIS MD Unavailable Unavailable DOMENICA, F MAGALIS MD Unavailable Unavailable DOMENICA, F MAGALIS MD Unavailable Unavailable DOMENICA, F MAGALIS MD Unavailable Unavailable Castilano, Ngozi PA Unavailable Unavailable [...] Unavailable Juliet Mcfarland MD Unavailable Unavailable Juliet Mcfalrand MD Unavailable Unavailable Juliet Mcfarland MD Unavailable Unavailable Juliet Mcfarland MD Unavailable Unavailable Juliet Mcfarland MD Unavailable Unavailable Juliet Mcfarland MD Unavailable Unavailable Juliet Mcfarland MD Unavailable Unavailable Juliet Mcfarland MD Unavailable Unavailable Juliet Mcfarland MD Unavailable Unavailable Juliet Mcfarland MD Unavailable Unavailable Juliet Mcfarland MD Unavailable Unavailable Niradham, Rayjenifer GARCIA Unavailable Unavailable Nizam, Rayjenifer GARCIA Unavailable Unavailable Nizam, Rayees MD Unavailable Unavailable Nizam, Rayjenifer MD Unavailable Unavailable Nizam, Rayees MD Unavailable Unavailable Nizam Rayjenifer MD Unavailable Unavailable Nizam, Rayees MD Unavailable Unavailable Nizam, Rayees MD Unavailable Unavailable Nizam, Rayees MD Unavailable Unavailable Nizam, Rayees MD Unavailable Unavailable Nizam, Rayees MD Unavailable Unavailable Nizam, Rayees MD Unavailable Unavailable Nizam Rayees MD Unavailable Unavailable Nizam, Rayjenifer MD Unavailable Unavailable Nizam, Rayjenifer MD Unavailable Unavailable Nizam, Rayjenifer MD Unavailable Unavailable Nizam, Rayjenifer MD Unavailable [...] Nizam, Rayees MD Unavailable Unavailable Nizam Rayjenifer GARCIA Unavailable Unavailable Niradham Rayjenifer MD Unavailable Unavailable Nizam Rayjenifer GARCIA Unavailable Unavailable Nizam Rayees MD Unavailable Unavailable Nizam Rayjenifer MD Unavailable Unavailable Nizam, Rayjenifer MD Unavailable Unavailable Nizam, Rayjenifer GARCIA Unavailable Unavailable Nizam Rayjenifer GARCIA Unavailable Unavailable Nizam Rayjenifer GARCIA Unavailable Unavailable Nizam Rayjenifer GARCIA Unavailable Unavailable Nizam Rayees Unavailable Unavailable Nizam Rayjenifer GARCIA Unavailable Unavailable Nizam Rayjenifer GARCIA Unavailable Unavailable Nizam, Rayees MD Unavailable Unavailable Nizam, Rayees Unavailable Unavailable Nizam Rayjenifer GARCIA Unavailable Unavailable Nizam, Rayjenifer GARCIA Unavailable Unavailable Nizam Rayjenifer GARCIA Unavailable Unavailable Nizam, Rayees Unavailable Unavailable Nizam, Rayees Unavailable Unavailable Nizam, Rayees MD Unavailable Unavailable Nizam, Rayees MD Unavailable Unavailable Nizam, Rayjenifer GARCIA Unavailable Unavailable Nizam, Rayees MD [...] Unavailable Unavailable Nizam, Rayees MD Unavailable Unavailable Hunter, Stephanie Marlys ANP-BC Unavailable [...] Stephanie Marlys ANP-BC Unavailable Unavailable Hunter, Stephanie Maryls ANP-BC Unavailable Unavailable Hunter, Stephanie Marlys ANP-BC Unavailable Unavailable Hunter, Stephanie Marlys ANP-BC Unavailable Unavailable Hunter, Stephanie Marlys ANP-BC Unavailable Unavailable Hunter, Stephanie Marlys ANP-BC Unavailable Unavailable Hunter, Stephanie Marlys ANP-BC Unavailable Unavailable Hunter, Stephanie Malrys ANP-BC Unavailable Unavailable Hunter, Stephanie Marlys ANP-BC [...] Unavailable Hunter, Stephanie Marlys ANP-BC Unavailable Unavailable Stephanie Harrison [facility] Unavailable Unavailable Re-disclosure Warning The records that [...] is protected by Article 27-F of the [facility] Public Health law. If you continue you may have access to information: Regarding HIV / AIDS; Provided by facilities licensed or operated by the [facility] Office of Mental Health; or Provided by the [facility] Office for People With Developmental Disabilities. If such information is present, then the following [facility] mandated warning applies: This information has been [...] law may result in a fine or snf sentence or both. A general authorization for the release of medical or other information is NOT sufficient authorization for further disc losure. Allergies and Adverse Reactions Type Description Substance Reaction Status Data Source(s ) Propensity to adverse reactions NICKEL nickel sulfate Active [facility] Propensity to adverse reactions ACETAMINOPHEN Acetaminophen Active [facility] Propensity to adverse reactions ADHESIVE TAPE Adhesive Tape Rash Low Active [facility] Low Propensity to adverse reactions TYLENOL WITH CODEINE NO. 4 T YLENOL WITH CODEINE NO. [address] [facility] Family History Family Member Name Family Member Gender Family Member Status Date o f Status Description Data Source(s) Unknown Male Problem [facility] ([facility]) Encounters Encounter Providers Location Date Indications Data Source(s ) Outpatient Attender: TERESITA THAKUR MD Main office - [facility] n 08/04/2021 11:30:00 AM EDT [facility] ([facility]) Outpatient Attender: LUCILA FIERRO NP 08/03/2021 04: 29:00 PM [facility] Outpatient Attender: Tabitha Lovell 06/28/2021 06:00:00 PM [facility] Outpatient Attender: TERESITA THAKUR MD Main office - [facility] n 06/27/2021 08:00:00 AM EDT [facility] ([facility]) Emergency Attender: TOMÁS NÚÑEZ PAReferrer : JUDY ORDONEZ MD EMERGENCY ROOM-ER 05/30/2021 08:08:00 PM EDT - 05/31/2021 12:06:00 AM [facility] Patient discharged. Outpatient Attender: TOMÁS NÚÑEZ PAConsultant: [facility] [id number] 05/30/2021 07:11:00 PM [facility] Outpatient Attender: TERESITA THAKUR MD Main office - [facility] n 04/27/2021 02:00:00 PM EDT [facility] ([facility]) Outpatient Attender: Leann Stinson [place] [id number] 04/27/2021 10 :00:00 AM EDT [facility] ([facility]) Outpatient Attender: LUCILA FIERRO NP 04/25/2021 04: 40:00 PM [facility] Outpatient Attender: Tabitha Lovell 04/03/2021 04:00:00 PM [facility] Outpatient Attender: LUCILA FIERRO NP 03/14/2021 04: 00:00 PM [facility] Outpatient Attender: TE TOSCANO MD Main Office 03/06/2021 02:45:00 PM EDT [facility] ([facility] Outpatient Attender: Tabitha Simpsonender: TABITHA SHARPE 03/06/2021 11:00:00 AM [facility] Outpatient Attender: LUCILA FIERRO NP 02/14/2021 01: 20:00 PM [facility] Outpatient Attender: Tabitha Simpsonender: TABITHA SHARPE 02/09/2021 01:00:00 PM [facility] Outpatient Attender: Tabitha Simpsonender: TABITHA SHARPE 01/26/2021 01:00:00 PM [facility] Outpatient Attender: LUCILA FIERRO NP 01/20/2021 01: 20:00 PM [facility] Outpatient Attender: Tabitha Simpsonender: TABITHA SHARPE 01/20/2021 10:00:00 AM [facility] Outpatient Attender: Efren MyersAdm itter: Efren CommeyReferrer: Efren Myers MOB-MOB.PAT 01/19/2021 11:12:33 AM [facility] - 01/19/2021 12:19:12 PM [facility] Outpatient Admitter: Efren CommeyReferrer: Efren black MOB-MOB.PAT 01/19/2021 10:16:13 AM [facility] - 01/19/2021 10:16:22 AM [facility] Inpatient Attender: Efren CommeyAdmitter: Efren black [id number] 01/10/2021 09:20:21 AM [facility] - 01/24/2021 03:33:00 PM [facility] Patient discharged. Outpatient Attender: LUCILA FIERRO NP 12/22/2020 01: 20:00 PM [facility] Outpatient Attender: Tabitha Simpsonender: TABITHA SHRAPE 12/06/2020 02:00:00 PM [facility] Outpatient Attender: LUCILA FIERRO NP 11/30/2020 02: 40:00 PM [facility] Outpatient Attender: TABITHA LOVELL 11/22/2020 02:00:00 PM [facility] Outpatient Attender: TABITHA LOVELL 10/27/2020 02:00:00 PM [facility] Outpatient Attender: MAGALIS METZGER MDConsultant: JUDY JANE MD 10/21/2020 02:58:00 PM EST - 10/21/2020 02:58:00 PM [facility] Outpatient Attender: MAGALIS METZGER MD Family Practice 09/26 02:15:00 PM EST [facility] ([facility] Outpatient Referrer: Leann Stinson MD MOB-MOB.PAT 2019 11:27:14 AM EST - 10/21/2020 11:27:18 AM EST [facility] Outpatient Attender: LUCILA FIERRO DRY GOODS INSPECTOR 10/07/2020 01: 20:00 PM [facility] Outpatient Attender: TABITHA LOVELL 09/22/2020 03:00:00 PM [facility] Outpatient Attender: MAGALIS METZGER MDA ttender: Marlys Harrison ANP-BCConsultant: JUDY ORDONEZ MD 09/20/2020 08:06:00 AM EDT - 09/20/2020 08:06:00 AM EDT [facility] Outpatient Attender: LUCILA FIERRO DRY GOODS INSPECTOR 09/16/2020 01: 20:00 PM [facility] Outpatient Attender: Ngozi Cummings PA Attender: Leann Stinson MDAdmitter: Leann Stinson MD [id number] 09/15/2020 09:44:32 AM EDT - 10/25/2020 03:11:00 PM [facility] Patient discharged. Outpatient Attender: MAGALIS METZGER MD Family Practice 08/25 10:30:00 AM EDT [facility] ([facility]) Outpatient Attender: MAGALIS METZGER MDConsultant: JUDY JANE MD 09/08/2020 10:25:00 AM EDT - 09/08/2020 10:25:00 AM EDT [facility] Outpatient Attender: Rachel Fletcher MDAdmitter: Rachel Fletcher MD E [id number] 08/30/2020 02:05:15 PM EDT [facility] Emergency Attender: GRUPO GROVEConsultant: JUDY ORDONEZ MD 08/29/2020 07:05:00 PM EDT - 08/29/2020 10:20:00 PM EDT [facility] Patient discharged. Outpatient Attender: LUCILA FIERRO NP 08/18/2020 02: 20:00 PM [facility] Outpatient Attender: TABITHA LOVELL 08/09/2020 02:00:00 PM [facility] Outpatient Attender: Leatha Montenegro magdaleno: Leatha McmanusConsultant: JUDY ORDONEZ MD 07/28/2020 04:19:00 PM EDT - 07/28/2020 04:29:00 PM T [facility] Outpatient Attender: LUCILA FIERRO NP 07/28/2020 11: 00:00 AM [facility] Outpatient Attender: Marlys Harrison ANP-BCConsultant: JUDY JANE MD 07/28/2020 08:40:00 AM EDT - 07/28/2020 08:40:00 AM [facility] Outpatient Attender: TE TOSCANO MD Main Office 07/22/2020 01:45:00 PM EDT [facility] ([facility]) Outpatient Attender: TABITHA LOVELL 07/14/2020 11:00:00 AM [facility] Emergency Attender: RENETTA RODRIGUEZ 2015 09:28:00 PM EDT - 06/24/2016 08:31:00 PM [facility] Outpatient Attender: KARSTEN Coopererrer: Arnaud Ortiz 03/28/2015 08:57:00 AM [facility] Medications Medication Brand Name Start Date Product [...] 08/04/2021 12:00:00 AM EDT ORAL active [facility] ([facility]) Cyclobenzaprine hydrochloride 5 MG Oral Tablet Cyclobenzapri ne HCL 08/04/2021 12:00:00 AM EDT active M [facility] ([facility] 1 ML Ketorolac Tromethamine 30 MG/ML Car tridge ketorolac (TORADOL) injection 30 mg ketorolac (TORADOL) injection 30 mg 01/24/2021 09:33:31 AM EST 30 mg Intravenous active 30 mg, Intrav enous, Every 6 hours PRN, severe pain (7-10), Starting Sat01/24/21 at 0933, For 2 doses [facility] Medication administered onsite vilazodone hydrochloride 10 MG Oral Tabl et vilazodone HCl (VIIBRYD) tablet 20 mg vilazodone HCl (VIIBRYD) tablet 20 mg 01/24/2021 09:00:00 AM EST 20 mg Oral active 20 mg, Oral, Daily, First do se on Sat01/24/21 at 0900, Post-op [facility] Medication administered onsite 24 HR Amphetamine aspartate [...] Sat01/24/21 at 0900, For 7 days, Post-op [facility] Medication administered onsite ondansetron (ZOFRAN-ODT) disintegrating tablet [...] Sat01/24/21 at 0600, Post-op [Order 2 End] [facility] Medication administered onsite lactated ringers bolus 1,000 mL [id number] 01/24/2021 06:00:00 AM EST 1000 mL Intravenous completed 1,000 mL , Intravenous, Administer over 2 Hours, Once, Sat01/24/21 at 0600, For 1 dose, Post-op [facility] Medication administered onsite Acetaminophen 325 MG Oral Tablet acetaminophen (TYLENO L) 325 MG tablet 650 mg acetaminophen (TYLENOL) 325 MG tablet 650 mg 01/24/2021 12:00:00 AM EST 650 mg Oral active 650 mg, Or al, Every 4 hours PRN, mild pain (1-3), for mild pain, headache, or temperature > 101, Starting Sat01/24/21 at 0000, Post-op
To begin after routine doses of tylenol.
[facility] Medication administered onsite vilazodone hydrochloride 10 MG Oral Tabl et vilazodone HCl (VIIBRYD) tablet 10 mg vilazodone HCl (VIIBRYD) tablet 10 mg 01/23/2021 09:00:00 PM EST 10 mg Oral active 10 mg, Oral, Nightly, First dose on Sat01/23/21 at 2100, Post-op [facility] Medication administered onsite 60 ACTUAT formoterol fumarate 0.005 MG/A CTUAT / mometasone furoate 0.2 MG/ACTUAT Metered Dose Inhaler mometasone-formoterol (DULERA) 200-5 MCG/ACT inhaler 2 puff mometasone-formoterol (DULERA) 200-5 MCG/ACT inhaler 2 puff 01/23/2021 08:00:00 PM EST 2 {puff} Inhalation active 2 pu ff, Inhalation, 2 times daily, First dose on Sat01/23/21 at 2000, Post-op [facility] Medication administered onsite Insulin Lispro 100 UNT/ML [...] 14 units >420 16 units, Call MD
[facility] Medication administered onsite Amphetamine aspartate 1.25 MG / Amphetam ine Sulfate 1.25 MG / Dextroamphetamine saccharate 1.25 MG / Dextroamphetamine Sulfate 1.25 MG Oral Tablet amphetamine- dextroamphetamine (ADDERALL) tablet 10 mg amphetamine-dextroamphetamine (ADDERALL) tablet 10 mg 01/23/2021 04:30:00 PM EST 10 mg Oral active 10 mg, Oral, Every evening, First dose on Sat01/23/21 at 1630, For 7 days, Post-op [facility] Medication administered onsite Acetaminophen 500 MG Oral Tablet acetaminophen (TYLENO L) tablet 1,000 mg acetaminophen (TYLENOL) tablet 1,000 mg 01/23/2021 03:00:00 PM EST 1000 mg Oral active 1,000 mg, Oral , Every 8 hours, First dose on Sat01/23/21 at 1500, For 48 hours, Post-op [facility] Medication administered onsite Simethicone 80 MG Chewable Tablet simethicone (MYLICON ) chewable tablet 80 mg simethicone (MYLICON) chewable tablet 80 mg 01/23/2021 03:00:00 PM EST 80 mg Oral active 80 mg, Oral, E very 4 hours (scheduled), First dose on Sat01/23/21 at 1500, Post-op [facility] Medication administered onsite Ondansetron 4 MG Disintegrating Oral Tab let ondansetron (ZOFRAN-ODT) disintegrating tablet 8 mg ondansetron (ZOFRAN-ODT) disintegrating tablet 8 mg 01/23/2021 03:00:00 PM EST 8 mg Oral completed 8 mg, Oral, Every 6 hours (scheduled), First dose on Sat01/23/21 at 1500, For 24 hours, Post-op [facility] Medication administered onsite gabapentin 300 MG Oral Capsule gabapentin (NEURONTIN) capsule 300 mg gabapentin (NEURONTIN) capsule 300 mg 01/23/2021 03:00:00 PM EST 300 mg Oral active 300 mg, Oral, 3 times daily, First dose on Sat01/23/21 at 1500, Post-op [facility] Medication administered onsite normal saline flush 0.9 % injection 3 mL [id number] 01/23/2021 02:00:00 PM EST 3 mL Intravenous active 3 mL , Intravenous, QSHIFT, First dose on Sat01/23/21 at 1400, Post-op
Convert to saline lock after discontinuing D5LR IV.
[facility] Medication administered onsite Calcium Chloride 0.001 MEQ/ML [...] adequate PO & convert to saline lock
[facility] Medication administered onsite normal saline flush 0.9 % injection 3 mL [id number] 01/23/2021 02:00:00 PM EST 3 mL Intravenous active 3 mL , Intravenous, Every 8 hours (scheduled), First dose on Sat01/23/21 at 1400, Pre-op
Rapid push positive pressure flushing shall be performed with a 10 cc normal saline syringe to check the PATENCY of a PIV site prior to any infusion therapy initiation unless resistance is met.
[facility] Medication administered onsite heparin (porcine) injection 5,000 Units [id number] 01/24/20 02:00:00 PM EST 5000 U Subcutaneous active 5,000 Units , Subcutaneous, Every 8 hours (relative), First dose on Sat01/23/21 at 1400, Post-op
If platelet count is less than 100,000 or hematocrit is less than 25, or if there is a 5 point decrea se in hematocrit, do not give the dose and call physician/designee.
[facility] Medication administered onsite Metoprolol Tartrate 25 MG Oral Tablet me toprolol tartrate (LOPRESSOR) tablet 25 mg metoprolol tartrate (LOPRESSOR) tablet 25 mg 01/23/2021 02:00:00 PM EST 25 mg Oral active 25 mg, Ora l, 2 times daily, First dose on Sat01/23/21 at 1400, Post-op
Hold Lopressor for SBP < 100 mmHg or HR < 60.
[facility] Medication administered onsite pantoprazole 40 MG Delayed Release Oral Tablet pantoprazole (PROTONIX) EC tablet 40 mg pantoprazole (PROTONIX) EC tablet 40 mg 01/23/2021 02:00:[address] 40 mg Oral active Stress Ulcer Prophylaxis 40 mg, Oral, Daily, Indications: Stress Ulcer Prophylaxis, First dose on Sat01/23/21 at 1400, Post-op [facility] Stress Ulcer Prophylaxis Medication administered onsite Loratadine 10 MG Oral Tablet loratadine (CLARITIN) tab let 10 mg loratadine (CLARITIN) tablet 10 mg 01/23/2021 02:00:00 PM EST 10 mg Oral active 10 mg, Oral, Daily, First dose on Sat01/23/21 at 1400, Post-op [facility] Medication administered onsite metoclopramide (REGLAN) injection 10 [...] hours PRN for nausea
[Order 2 End] [facility] Medication administered onsite 1 ML Ketorolac Tromethamine 30 MG/ML Car tridge ketorolac (TORADOL) injection 30 mg ketorolac (TORADOL) injection 30 mg 01/23/2021 01:35:54 PM EST 30 mg Intravenous aborted 30 mg, Intrav enous, Every 8 hours PRN, severe pain (7-10), Starting Sat01/23/21 at 1335, For 3 doses, Post-op [facility] Medication administered onsite Promethazine Hydrochloride 25 MG Oral Ta blet promethazine (PHENERGAN) tablet 12.5 mg promethazine (PHENERGAN) tablet 12.5 mg 01/23/2021 01:35:[address] 12.5 mg Oral active 12.5 mg, O ral, Every 4 hours PRN, nausea, Starting Sat01/23/21 at 1335, Post-op [facility] Medication administered onsite Prochlorperazine 10 MG Oral Tablet prochlorperazine (C OMPAZINE) tablet 10 mg prochlorperazine (COMPAZINE) tablet 10 mg 01/23/2021 01:35:54 PM EST 10 mg Oral active 10 mg, Oral, E very 6 hours PRN, nausea, Starting Sat01/23/21 at 1335, Post-op [facility] Medication administered onsite 0.4 ML Enoxaparin sodium 100 MG/ML Prefi lled Syringe enoxaparin (LOVENOX) syringe 40 mg enoxaparin (LOVENOX) syringe 40 mg 01/23/2021 01:35:53 PM EST 40 mg Subcutaneous completed 40 mg, Subcutaneous, Before Discharge, per protocol, Starting Sat01/23/21 at 1335, For 1 dose, Post-op
At discharge. To be administered by patient or significant other.
[facility] Medication administered onsite Clonidine Hydrochloride 0.1 MG Oral Tablet cloNIDine ( CATAPRES) tablet 0.1 mg cloNIDine (CATAPRES) tablet 0.1 mg 01/23/2021 01:35:53 PM EST 0.1 mg Oral active 0.1 mg, Oral, Every 4 hours PRN, high blood pressure, for SBP > 140 mmHg and/or DBP > 90 mmHg, Starting Sat01/23/21 at 1335, Post-op [facility] Medication administered onsite enalaprilat (VASOTEC) injection 1.25 mg [id number] 01/24/20 01:35:53 PM EST 1.25 mg Intravenous active 1.25 mg, Int ravenous, Every 6 hours PRN, for SBP > 140 mmHg and/or DBP > 90 mmHg, Starting Sat01/23/21 at 1335, Post-op
Mix in 50 mL NS, infuse over 30 minutes via infusion pump. For IVMB on NON-ICU units.
[facility] Medication administered onsite Albuterol 0.83 MG/ML Inhalant Solution a lbuterol (PROVENTIL) nebulizer solution 2.5 mg albuterol (PROVENTIL) nebulizer solution 2.5 mg 2020 01:35:53 PM EST 2.5 mg active 2.5 mg, Nebulization, RT every 4 hours as needed, wheezing, shortness of breath, Starting Sat01/23/21 at 1335, Post-op [facility] Medication administered onsite Insulin Lispro 100 UNT/ML Injectable Elaina ution insulin lispro (HumaLOG) injection 0-16 Units insulin lispro (HumaLOG) injection 0-16 Units 01/24/20 01:00:00 PM EST Subcutaneous aborted 0-1 6 Units, Subcutaneous, Every 1 hour, First dose on Sat01/23/21 at 1300, PACU (only)
PACU Use Only!! [...] &nbsp ; Call (May need Lantus dose)
[facility] Medication administered onsite HYDROmorphone (DILAUDID) injection 0.5 mg [id number] 01/23/2021 12:56:14 PM EST 0.5 mg Intravenous aborted 0.5 mg, Intravenous, Every 5 min PRN, severe pain (7-10), Starting Sat01/23/21 at 1256, For 5 doses, PACU (only) [facility] Medication administered onsite fentaNYL Citrate (PF) (SUBLIMAZE) injection 25 mcg [id number] 01/23/2021 12:56:14 PM EST 25 ug Intravenous aborted 25 mcg, Intravenous, Every 5 min PRN, moderate pain (4 to 6), Starting Sat01/23/21 at 1256, For 5 doses, PACU (only) [facility] Medication administered onsite Insulin Glargine 100 UNT/ML [...] to 200 mg/dl &nb sp; No Change
[facility] Medication administered onsite Alprazolam 0.25 MG Oral Tablet ALPRAZolam (XANAX) tabl et 0.25 mg ALPRAZolam (XANAX) tablet 0.25 mg 01/23/2021 10:00:00 AM EST 0.25 mg Oral completed 0.25 mg, Oral, supervisor liquefaction, Sat01/23/21 at 10 00, For 1 dose, Pre-op [facility] Medication administered onsite Clonidine Hydrochloride 0.1 MG Oral Tablet cloNIDine ( CATAPRES) tablet 0.1 mg cloNIDine (CATAPRES) tablet 0.1 mg 01/23/2021 10:00:00 AM EST 0.1 mg Oral completed 0.1 mg, Oral, supervisor liquefaction, Sat 1 at 1000, For 1 dose, Pre-op [facility] Medication administered onsite Albuterol 0.83 MG/ML Inhalant Solution a lbuterol (PROVENTIL) nebulizer solution 2.5 mg albuterol (PROVENTIL) nebulizer solution 2.5 mg 2020 10:00:00 AM EST 2.5 mg completed 2.5 mg , Nebulization, supervisor liquefaction, Sat01/23/21 at 1000, For 1 dose, Pre-op
To be started by pre-op unit
[facility] Medication administered onsite Calcium Chloride 0.0014 MEQ/ML / Potassi um Chloride 0.004 MEQ/ML / Sodium Chloride 0.103 MEQ/ML / Sodium Lactate 0.028 MEQ/ML Injectable Solution lactated ringers infusion lactated ringers infusion 01/23/2021 10:00:00 AM EST 100 mL/h Intravenous aborted at 100 m L/hr, 100 mL/hr, Intravenous, Continuous, Starting Sat01/23/21 at 1000, Pre-op
Please place IV on left side if able
[facility] Medication administered onsite heparin (porcine) injection 5,000 Units [id number] 01/24/20 10:00:00 AM EST 5000 U Subcutaneous completed 5,000 Uni ts, Subcutaneous, supervisor liquefaction, Sat01/23/21 at 1000, For 1 dose, Pre-op
If platelet count is less than 100,000 or hematocrit is less than 25, or if there is a 5 point decrease in hematocrit, do not give the dose and call physician/designee.
[facility] Medication administered onsite celecoxib 100 MG Oral Capsule celecoxib (CeleBREX) cap logan 200 mg celecoxib (CeleBREX) capsule 200 mg 01/23/2021 10:00:00 AM EST 200 mg Oral completed 200 mg, Oral, supervisor liquefaction, Sat 1 at 1000, For 1 dose, Pre-op [facility] Medication administered onsite Tetrahydrocannabinol 2.5 MG Oral Capsule dronabinol (M ARINOL) capsule 5 mg dronabinol (MARINOL) capsule 5 mg 01/23/2021 10:00:00 AM EST 5 mg Oral completed 5 mg, Oral, supervisor liquefaction, Sat01/23/21 at 1000, For 1 dose, Pre-op [facility] Medication administered onsite gabapentin 600 MG Oral Tablet gabapentin (NEURONTIN) t ablet 600 mg gabapentin (NEURONTIN) tablet 600 mg 01/23/2021 10:00:00 AM EST 600 mg Oral completed 600 mg, Oral, On [place] l, Sat01/23/21 at 1000, For 1 dose, Pre-op
Hold if age greater than 70 or chronic renal failure/insufficiency
[facility] Medication administered onsite Dexamethasone 4 MG Oral Tablet dexamethasone (DECADRON ) tablet 4 mg dexamethasone (DECADRON) tablet 4 mg 01/23/2021 10:00:00 AM EST 4 mg Oral completed 4 mg, Oral, supervisor liquefaction, Sat01/23/21 at 1000, For 1 dose, Pre-op [facility] Medication administered onsite Prochlorperazine 10 MG Oral Tablet prochlorperazine (C OMPAZINE) tablet 10 mg prochlorperazine (COMPAZINE) tablet 10 mg 01/23/2021 10:00:00 AM EST 10 mg Oral completed 10 mg, Oral, O n call, Sat01/23/21 at 1000, For 1 dose, Pre-op [facility] Medication administered onsite normal saline flush 0.9 % injection 3 mL [id number] 01/23/2021 10:00:00 AM EST 3 mL Intravenous aborted 3 mL , Intravenous, Every 8 hours (scheduled), First dose on Sat01/23/21 at 1000, Pre-op
Rapid push positive pressure flushing shall be performed with a 10 cc normal saline syringe to check the PATENCY of a PIV site prior to any infusion therapy initiation unless resistance is met.
[facility] Medication administered onsite scopolamine (TRANSDERM-SCOP) 1.5 MG (Bariatric only) 1 patch [id number] 01/23/2021 08:55:39 AM EST 1 {patch} Transdermal complet ed 1 patch, Transdermal, Administer over 24 Hours, Every 24 hours (relative), First dose on Sat01/23/21 at 1000, For 1 dose, Pre-op
Scopolamine patch applied behind ear. Hold for any of the followin+ yrs old, hx of glaucoma, hx of vertigo, dementia.
[facility] Medication administered onsite Simethicone 80 MG Chewable Tablet simethicone (MYLICON ) 80 MG chewable tablet simethicone (MYLICON) 80 MG chewable tablet 01/23/2021 12:00:00 AM EST 80 mg Oral active Chew 1 tablet (80 mg total) every 6 (six) hours as needed for flatulence (gas pain) [facility] 0.4 ML Enoxaparin sodium 100 MG/ML Prefi lled Syringe enoxaparin (LOVENOX) 40 MG/0.4ML SOLN enoxaparin (LOVENOX) 40 MG/0.4ML SOLN 01/23/2021 12:00:00 AM EST 40 mg Subcutaneous active Inject 0.4 mL (40 mg total) under the skin daily for 10 days After discharge [facility] Magnesium Hydroxide 80 MG/ML Oral Suspen aaron magnesium hydroxide (MILK OF MAGNESIA) 400 MG/5ML suspension magnesium hydroxide (MILK OF MAGNESIA) 4 00 MG/5ML suspension 01/23/2021 12:00:00 AM EST 15 mL Oral active Take 15 mL by mouth 2 (two) times a day as needed for constipation [facility] Vitamin B 12 1 MG Oral Tablet vitamin B-12 (CYANOCOBAL HINES) 1000 MCG tablet vitamin B-12 (CYANOCOBALAMIN) 1000 MCG tablet 01/23/2021 12:00:00 AM EST 1000 ug Oral active Take 1 tablet (1,000 mcg total) by mouth daily [facility] Ondansetron 4 MG Disintegrating Oral Tab let ondansetron (ZOFRAN-ODT) 4 MG disintegrating tablet ondansetron (ZOFRAN-ODT) 4 MG disintegrating tablet 01/23/2021 12:00:00 AM EST 8 mg Oral active Take 2 tablets (8 mg total) by mouth every 8 (eight) hours as needed for nausea [facility] pediatric multivitamin-iron (POLY--ELAINA WITH IRON) 15 MG chewable tablet [id number] 01/23/2021 12:00:00 AM EST 2 {tbl} Oral activ e Chew 2 tablets daily [facility] Acetaminophen 325 MG Oral Tablet acetaminophen (TYLENO L) 325 MG tablet acetaminophen (TYLENOL) 325 MG tablet 01/23/2021 12:00:00 AM EST 65 0 mg Oral active Take 2 tablets (650 mg total) by mouth every 6 (six) hours as needed for pain (fever or headache) [facility] normal saline flush 0.9 % injection 3 mL [id number] 10/25/2020 03:00:00 PM EST 3 mL Intravenous active 3 mL , Intravenous, Every 8 hours (scheduled), First dose on Sat10/25/20 at 1500, PACU (only)
flush per protocol, D/C Main IV fluid if appropriate
[facility] Medication administered onsite 10 ML Atropine Sulfate [...] or 0.04 mg/kg. Max of 6 doses
[facility] Medication administered onsite ondansetron (ZOFRAN) injection 4 mg [id number] 10/25/2020 02:16:1 0 PM EST 4 mg Intravenous active 4 mg, In travenous, Once as needed, nausea, vomiting, Starting Sat10/25/20 at 1416, For 1 dose, PACU (only)
If not given in last 4 hours
[facility] Medication administered onsite Albuterol 0.833 MG/ML / Ipratropium Brom demetrio 0.167 MG/ML Inhalant Solution ipratropium-albuterol (DUO-NEB) 0.5-2.5 mg/mL nebulizer solution 3 mL ipratropium-albuterol (DUO-NEB) 0.5-2.5 mg/mL nebulizer solution 3 mL 10/25/2020 02:16:10 PM EST 3 mL Inhalation active 3 mL, Inhalation, Once as needed, shortness of breath, Starting Sat10/25/20 at 1416, For 1 dose, PACU (only) [facility] Medication administered onsite valacyclovir 500 MG Oral Tablet [Valtrex] Valtrex 10/21/2020 1 2:00:00 AM EST ORAL active [facility] ([facility]) 60 ACTUAT Budesonide 0.16 MG/ACTUAT / fo rmoterol fumarate 0.0045 MG/ACTUAT Metered Dose Inhaler [Symbicort] Symbicort 07/22/2020 12:00:00 AM EDT RESPIRATORY active [facility] ( [facility]) 60 ACTUAT Fluticasone propionate 0.25 MG /ACTUAT / salmeterol 0.05 MG/ACTUAT Dry Powder Inhaler Fluticasone Propionate/Salmeterol Diskus 04/27/2020 12 :00:00 AM EDT completed [facility] ([facility]) nystatin (MYCOSTATIN) [id number] UNIT/ML suspension [id number] 893839 U Oral aborted Take 500,000 Units by jan th 4 (four) times a day [facility] Levofloxacin 500 MG Oral Tablet levofloxacin (LEVAQUIN ) 500 MG tablet levofloxacin (LEVAQUIN) 500 MG tablet 500 mg Oral aborted Take 500 mg by mouth daily [facility] Acetaminophen 500 MG Oral Tablet acetaminophen (TYLENO L) 500 MG tablet acetaminophen (TYLENOL) 500 MG tablet 500 mg Oral aborted Take 500 mg by mouth daily as needed for pain [facility] Omeprazole 20 MG Delayed Release Oral Ca psule omeprazole (PRILOSEC) 20 MG capsule omeprazole (PRILOSEC) 20 MG capsule 20 mg Oral aborted Take 20 mg by mouth daily [facility] Insurance Providers Payer name Policy type / Coverage type Policy ID Covered republican ID Covered republican's relationship to salas Policy Salas Plan Information U [id number] Spouse [id number] [facility] MEDICAID [id number] S [id number] [facility] [id number] Self [id number] [facility] [id number] Mayra [id number] MEDICAID [id number] xxxxxxxxx [id number] MED[facility] [id number] xxxxxxxxx [id number] [id number] Mayra [id number] INSURANCE COVID-19 COVID Mayra C OVID INSURANCE COVID-19 COVID Mayra C OVID INSURANCE COVID-19 [id number] [facility] [id number] S [id number] REGIONAL CLAIMS LOU-O/P [id number] 01 [id number] [facility] [place] P [id number] P [id number] [facility] FEDERAL SERVICES [facility] [id number] [facility] MEDICAID [place] HMO UNAVAILABLE S UNAVAILABLE AMERICHOICE UNHC XIX HMO -RECURRING [id number] 18 [id number] AMERICHOICE UNHC XIX HMO -RECURRING [id number] 1 [id number] [facility](MCAID) O [id number] S [id number] UNHC COMMUNITY PLAN MCDO [id number] SP [id number] [facility] O [id number] S [id number] [facility] Communty Plan Medicaid [id number] Self [id number] [facility] Communty Plan Medicaid [id number] Self [id number] [facility] Communty Plan Medicaid [id number] Self [id number] [facility] Communty Plan Medicaid [id number] Self [id number] [facility] Communty Plan Medicaid [id number] Self [id number] [facility]UNITY PLAN [facility] [id number] SP [id number] [facility] Communty Plan Medicaid [id number] Self [id number] [facility] [id number] 2 [id number] UNHC [facility] [id number] S [id number] [facility] MEDICAID [id number] S [id number] [facility] MEDICAID [id number] S [id number] [facility] COMMUNTY PLAN [id number] UNHC COMMUNITY PLAN XIX [id number] 18 [id number] [facility] [id number] S [id number] [facility] [id number] S [id number] [facility] [id number] S [id number] Problems, Conditions, and Diagnoses Code Display Name Description Problem Type Effective Dates Data Source(s) F41.9 Anxiety disorder, unspecified ANXIETY DISORDER, UNSPEC IFIED Diagnosis 08/03/2021 04:29:00 PM [facility] F90.9 Attention-deficit hyperactivity disorder , unspecified type ATTENTION- DEFICIT HYPERACTIVITY DISORDER, UNSPECIF Diagnosis 08/03/2021 04:29:00 PM [facility] F33.0 Major depressive disorder, recurrent, mi ld MAJOR DEPRESSIVE DISORDER, RECURRENT, MILD Diagnosis 08/03/2021 04:29:00 PM [facility] Z79.899 Other group home (current) drug therapy O THER [facility] (CURRENT) DRUG THERAPY Diagnosis 05/30/2021 08:08:00 PM [facility] F17.210 Nicotine dependence, cigarettes, uncompl icated NICOTINE DEPENDENCE, CIGARETTES, UNCOMPLICATED Diagnosis 05/30/2021 08:08:00 PM [facility] E83.42 Hypomagnesemia HYPOMAGNESEMIA Diagnosis 05/30/2021 08:08: 00 PM [facility] A04.72 ENTEROCOLITIS D/T CLOSTRIDIUM DIFFICILE, NOT SPCF ENTEROCOLITIS D/T CLOSTRIDIUM DIFFICILE, NOT SPCF Diagnosis 05/30/2021 08:08:00 PM [facility] A09 Infectious gastroenteritis and colitis, unspecified INFECTIOUS GASTROENTERITIS AND COLITIS, UNSPECIFIE Diagnosis 05/30/2021 08:08:00 PM [facility] R10.10 Upper abdominal pain, unspecified UPPER ABDOMINA L PAIN, UNSPECIFIED Diagnosis 05/30/2021 08:08:00 PM [facility] E66.01 Morbid (severe) obesity due to excess ca lories Morbid (severe) obesity due to excess ca Diagnosis 01/23/2021 07:57:00 AM [facility] R40.0 Somnolence SOMNOLENCE Diagnosis 01/20/2021 01:20:00 PM [facility] U07.1 COVID-19 COVID-19 Diagnosis 01/19/2021 10:16:13 AM [facility] Z712 Person consulting for explanation of exa mination or test findings Person consulting for explanation of examination or test findings Diagnosis 10/21/2020 02:58:00 PM [facility] [id number] Encounter for gynecological examination (general) (routine) without abnormal findings Encounter for gynecological examination (general) (routine) without abnormal findings Diagnosis 09/20/2020 08:06:00 AM EDT [facility] Z853 Personal history of malignant neoplasm o f breast Personal history of malignant neoplasm of breast Diagnosis 09/08/2020 10:25:00 AM EDT [facility] [id number] Other reproducer (current) drug therapy O ther reproducer (current) drug therapy Diagnosis 08/29/2020 07:05:00 PM EDT [facility] [id number] Nicotine dependence, cigarettes, uncompl icated Nicotine dependence, cigarettes, uncomplicated Diagnosis 08/29/2020 07:05:00 PM T [facility] [id number] Unspecified ovarian cyst, left side Unspecified ovarian cyst, left side Diagnosis 08/29/2020 07:05:00 PM T [facility] R102 Pelvic and perineal pain Pelvic and perineal pain Diag nosis 08/29/2020 07:05:00 PM [facility] Z8639 Personal history of other endocrine, nut ritional and metabolic disease Personal history of other endocrine, nutritional and metabolic disease Diagnosis 07/28/2020 08:40:00 AM T [facility] E66.01 Morbid obesity Morbid obesity Problem 04/27/2021 12:00: 00 AM EDT [facility] ([facility]) K21.9 Gastroesophageal reflux disease Gastroesophageal reflu x disease Problem 04/27/2021 12:00:00 AM EDT [facility] ([facility]) F98.8 ADD (attention deficit disorder) ADD (attention deficit disorder) [id number] 01/23/2021 12:00:00 AM [facility] Z91.09 Environmental allergies Environmental allergies [id number] 01/23/2021 12:00:00 AM [facility] J45.909 Asthma Asthma [id number] 01/23/2021 12:00:00 AM [facility] K21.9 GERD (gastroesophageal reflux disease) G ERD (gastroesophageal reflux disease) [id number] 01/23/2021 12:00:00 AM [facility] G47.30 Sleep apnea Sleep apnea [id number] 01/23/2021 12:00:00 AM [facility] E66.01 Morbid obesity with BMI of 40.0-44.9, ad ult Morbid obesity with BMI of 40.0-44.9, adult [id number] 01/23/2021 12:00:00 AM [facility] J45.40 Uncomplicated moderate persistent asthma Uncomplicated moderate persistent asthma Problem 07/22/2020 12:00:00 AM EDT [facility] ([facility]) Surgeries/Procedures Procedure Description Date Indications Data Source(s) OFFICE OUTPATIENT VISIT 25 MINUTES 08/04/2021 12:00:00 AM EDT [facility] ([facility], ) OFFICE OUTPATIENT VISIT 25 MINUTES 06/27/2021 12:00:00 AM EDT [facility] ([facility], ) Needle electromyography, each extremity, with related paraspinal areas, when performed, done with nerve conduction, amplitude and latency/velocity study; complete, five or more muscles studied, innervated by three or more nerves or four or more spinal levels (list separately in addition to the code for primary procedure). 05/22/2021 12:00:00 AM EDT MEDEN T ([facility], ) Needle electromyography, each extremity, with related paraspinal areas, when performed, done with nerve conduction, amplitude and latency/velocity study; complete, five or more muscles studied, innervated by three or more nerves or four or more spinal levels (list separately in addition to the code for primary procedure). 05/22/2021 12:00:00 AM EDT MEDEN T ([facility], ) Nerve Conduction 11-12 Studies 05/22/2021 12:00:00 AM EDT [facility] ([facility], ) NON-INVASIVE PHYSIOLOGIC STUDY EXTREMITY 3 LEVLS 05/19 12:00:00 AM EDT [facility] ([facility], ) TSTG ANS FUNCJ CARDIOVAGAL INNERVAJ PARASYMP 12:00:00 AM EDT [facility] ([facility], ) TESTING AUTONOMIC NERVOUS SYSTEM FUNCTION 05/19/2021 1 2:00:00 AM EDT [facility] ([facility], ) Needle electromyography, each extremity, with related paraspinal areas, when performed, done with nerve conduction, amplitude and latency/velocity study; complete, five or more muscles studied, innervated by three or more nerves or four or more spinal levels (list separately in addition to the code for primary procedure). 05/15/2021 12:00:00 AM EDT [facility] T ([facility], ) Needle electromyography, each extremity, with related paraspinal areas, when performed, done with nerve conduction, amplitude and latency/velocity study; complete, five or more muscles studied, innervated by three or more nerves or four or more spinal levels (list separately in addition to the code for primary procedure). 05/15/2021 12:00:00 AM EDT [facility] T ([facility], ) Nerve Conduction 9-10 Studies 05/15/2021 12:00:00 AM E DT [facility] ([facility], ) OFFICE OUTPATIENT NEW 45 MINUTES 04/27/2021 12:00:00 A M EDT [facility] ([facility], ) OFFICE OUTPATIENT VISIT 15 MINUTES 04/27/2021 12:00:00 AM EDT [facility] ([facility]) BRNCDILAT RSPSE SPMTRY PRE&POST-BRNCDILAT ADMN 021 12:00:00 AM EDT [facility] ([facility]) GLUC BLD GLUC MNTR DEV CLEARED FDA SPEC HOME USE <td>P OCT GLUCOSE</td><td>Routine</td><td>01/24/2021 11:36 AM EST</td><td></td><td> </td> 01/24/2021 04:36:00 PM EST [facility] GLUC BLD GLUC MNTR DEV CLEARED FDA SPEC HOME USE <td>P OCT GLUCOSE</td><td>Routine</td><td>01/24/2021 5:53 AM EST</td><td></td><td> </td> 01/24/2021 10:53:00 AM EST [facility] GLUC BLD GLUC MNTR DEV CLEARED FDA SPEC HOME USE <td>P OCT GLUCOSE</td><td>Routine</td><td>01/24/2021 12:04 AM EST</td><td></td><td> </td> 01/24/2021 05:04:00 AM EST [facility] GLUC BLD GLUC MNTR DEV CLEARED FDA SPEC HOME USE <td>P OCT GLUCOSE</td><td>Routine</td><td>01/23/2021 5:59 PM EST</td><td></td><td> </td> 01/23/2021 10:59:00 PM EST [facility] GLUC BLD GLUC MNTR DEV CLEARED FDA SPEC HOME USE <td>P OCT GLUCOSE</td><td>Routine</td><td>01/23/2021 12:26 PM EST</td><td></td><td> </td> 01/23/2021 05:26:00 PM EST [facility] LAPS GSTR RSTCV PX W/BYP YENNIFER-EN-Y LIMB <150 CM <td>CR EATION, GASTRIC BYPASS, YENNIFER-EN-Y, LAPAROSCOPIC, WITH SLEEVE GASTRECTOMY IF INDICATED, WITH LIVER BIOPSY IF INDICATED, WITH HIATAL HERNIA REPAIR IF INDICATED, WITH LAPAROTOMY IF INDICATED</td><td></td><td>01/23/2021 10:10 AM EST</td><td> Morbid obesity Hepatomegaly Fatty liver</td><td></td> 01/23/2021 03:10:00 PM EST - 01/23/2021 05:47:00 PM EST Fatty liverHepatomegalyMorbid obesity [facility] Fatty liver Hepatomegaly Morbid obesity GLUC BLD GLUC MNTR DEV CLEARED FDA SPEC HOME USE <td>P OCT GLUCOSE</td><td>Routine</td><td>01/23/2021 9:47 AM EST</td><td></td><td> </td> 01/23/2021 02:47:00 PM EST [facility] POCT I-STAT BETA HCG <td>POCT I-STAT BETA HCG</td ><td>Routine</td><td>01/23/2021 9:40 AM EST</td><td></td><td> </td> 01/23/2021 02:40:00 PM EST [facility] ECG ROUTINE ECG W/LEAST 12 LDS TRCG ONLY W/O I&R <td>E CG 12- LEAD</td><td>Routine</td><td>01/19/2021 12:14 PM EST</td><td> Morbid obesity</td><td></td> 01/19/2021 05:14:21 PM EST Morbid obesity [facility] Morbid obesity BLOOD COUNT COMPLETE AUTOMATED <td>CBC</td><td>Routine </td><td>01/19/2021 12:10 PM EST</td><td> Morbid obesity</td><td> </td> 01/19/2021 05:10:00 PM EST Morbid obesity [facility] Morbid obesity BLOOD TYPING ABO <td>TYPE AND SCREEN</td><td> Routine</td><td>01/19/2021 12:10 PM EST</td><td> Morbid obesity</td><td> </td> 01/19/2021 05:10:00 PM EST Morbid obesity [facility] Morbid obesity THYROID STIMULATING HORMONE TSH <td>TSH</td><td>Routin e</td><td>01/19/2021 12:10 PM EST</td><td> Morbid obesity</td><td> </td> 01/19/2021 05:10:00 PM EST Morbid obesity [facility] Morbid obesity HEMOGLOBIN GLYCOSYLATED A1C <td>HEMOGLOBIN A1C</td><td>Routine</td><td>01/19/2021 12:10 PM EST</td><td> Morbid obesity</td><td> </td> 01/19/2021 05:10:00 PM EST Morbid obesity [facility] Morbid obesity COMPREHENSIVE METABOLIC PANEL <td>COMPREHENSIVE METABO LIC PANEL</td><td>Routine</td><td>01/19/2021 12:10 PM EST</td><td> Morbid obesity</td><td> </td> 01/19/2021 05:10:00 PM EST Morbid obesity [facility] Morbid obesity UPPER NDSC BIOPSY SINGLE/MULTIPLE 10/25/2020 12:00:00 AM EST [facility] ([facility]) BRNCDILAT RSPSE SPMTRY PRE&POST-BRNCDILAT ADMN 020 12:00:00 AM EDT [facility] ([facility]) Results ID Date Data Source [id number] 05/31/2021 02:28:00 PM EDT [facility]: KATALINA TERAN Soheila Diallo eport - Physicians/[facility].VisitID: [id number] [place] [address] [phone], FRegistration Date/Time: 05/30/2021 18:37 Weight:69.3 kg (S). [...] 05/31/2021 02:28) Addsadie oh KATALINA TERAN VisitID: [id number] Date: 05/30/2021 05/31/2021 14:25Patient called ED stating that the prescription she was given last night is not covered by her insurance, she is asking for a new prescription to be called in for her. Wrist Liner stated that the provider who examined her last night was not currently here nor here tonight. Before instructional writer could elaborate further, she states "don't you have a hospitalist, why can't the hospitalist prescribe me something. I can't get in to my regular doctor either". She then hung up. (Electronically signed by Patience Hastings R.N. 05/31/2021 14:25) Name Value Range Interpretation Code Description Data Julisa rce(s) Supporting Document(s) ID Date Data Source [id number] 05/31/2021 07:21:00 AM EDT [facility] DATE OF EXAMINATION: 05/30/2021 20:07 EDT [...] rce(s) Supporting Document(s) ID Date Data Source [id number] 05/31/2021 02:31:00 AM EDT [facility] Patient: KATALINA TERAN Soheila R eport - [facility] Levels [facility], [facility].VisitID: [id number] [place] [address] [phone], FRegistrachristianacare Date/Time: 05/30/2021 18:37 Weight:69.3 kg (S). Height/Length:61.5 [...] nguyen(s) Supporting Document(s) ID Date Data Source [id number] 05/30/2021 09:44:00 PM T [facility] TSYSORDER [id number] Name Value Range Interpretation Code Description Data Julisa nguyen(s) Supporting Document(s) Campylobacter Not Detected Detected [facility] Clostridium difficile toxin AB DETECTED Detected Not [facility] This device is not intented to monitor o r guide treatmentfor C. difficile infection.Due to the high asymptomatic carriage rates,especiallyin young children,the clinical relevance of the detectionof toxigenic C. difficile from stool should be consideredin the context of other clinical findings,patient age,and risk factors including hospitalization and antibioticexposure. Plesiomonas shigelloides Not Detected Detected Not [facility] Salmonella Not Detected Detected Not [facility] Vibrio Not Detected Detected Not [facility] Vibrio cholerae Not Detected Detected Not [facility] Yersinia enterocolitica Not Detected Detected Not [facility] Enteroaggregative E. coli Not Detected Detected Not [facility] Enteropathogenic E. coli DETECTED Detected Not [facility] Enterotoxigenic E. coli Not Detected Detected Not [facility] Shiga-like toxin-prod E. coli Not Detected Detected Not [facility] Shigella/Enteroinvasive E coli Not Detected Detected Not [facility] Cryptosporidium Not Detected Detected Not [facility] Cyclospora cayetanensis Not Detected Detected Not [facility] Entamoeba histolytica Not Detected Detected Not [facility] Giardia Lamblia Not Detected Detected Not [facility] Adenovirus F 40/41 Not Detected Detected Not [facility] Astrovirus Not Detected Detected Not [facility] Norovirus GI/GII Not Detected Detected Not [facility] Rotavirus A Not Detected Detected [facility] Sapovirus Not Detected Detected Not [facility] The FilmArray GI Panel is indicated as [...] results have been determined by using the [employer] FilmArray system.FilmArray is an automated in vitro diagnostic system thatutilizes nested multiplex Polymerase Chain Reaction (PCR)and high-resolution melting analysis to detect and identifymultiple nucleic acid targets from clinical specimens. ID Date Data Source [id number] 06/01/2021 04:05:00 PM EDT [facility] Name Value [...] and Drug Administration. ID Date Data Source [id number] 06/01/2021 04:10:00 PM EDT [facility] Name Value Range Interpretation Code Description Data Julisa rce(s) Supporting Document(s) H. PYLORI, IGM ABS <9.0 units 0.0-8.9 [facility] Negative <9.0 Equivocal 9.0 - 11.0 Positive > 11.0This test was developed and its performance characteristicsdetermined by [facility]. It has not been cleared orapproved by the Food and Drug Administration.Performed at: RN - [facility] [id number] Director: Reina Mehta MD, Phone: [phone] H. PYLORI, IGG ABS 0.12 0.00-0.79 [facility] INFCE Result Units: Index Value Negative <0.80 Equivocal 0.80 - 0.89 Positive >0.89 H. PYLORI, IGA ABS <9.0 units 0.0-8.9 [facility] Negative <9.0 Equivocal 9.0 - 11.0 Positive >11.0 ID Date Data Source [id number] 05/30/2021 07:40:00 PM EDT [facility] TSYSORDER [id number] Name Value Range Interpretation Code Description Data Julisa rce(s) Supporting Document(s) URINE RBC 1-3 /hpf 0-3 [facility] URINE WBC 5-10 /hpf 0-5 H [facility] URINE EPITHELIAL CELLS 3+ /hpf 0 [facility] URINE BACTERIA 4+ NONE SEEN H [facility] ID Date Data Source [id number] 05/30/2021 07:24:00 PM EDT [facility] TSYSORDER [id number] Name Value Range Interpretation Code Description Data Julisa rce(s) Supporting Document(s) URINE COLOR. YELLOW [facility] URINE APPEARANCE CLOUDY [facility] URINE GLUCOSE (UA) NEGATIVE mg/dL NEGATIVE [facility] URINE BILIRUBIN 1+(SMALL) NEGATIVE [facility] URINE KETONE NEGATIVE mg/dL NEGATIVE [facility] SPECIFIC GRAVITY,URINE 1.025 1.005-1.030 [facility] URINE BLOOD 3+(LARGE) NEGATIVE [facility] PH,URINE 6.0 5.0-9.0 [facility] URINE PROTEIN 1+(30) mg/dL NEGATIVE [facility] URINE UROBILINOGEN NORMAL(0.2-1) mg/dL 0-1 [facility] URINE NITRATE POSITIVE NEGATIVE [facility] URINE CULTURE ORDERED URINE LEUKOCYTE ESTERASE NEGATIVE NEGATIVE [facility] ID Date Data Source [id number] 05/30/2021 07:37:00 PM [facility] l TSYSORDER [id number] Name Value Range Interpretation Code Description Data Julisa rce(s) Supporting Document(s) MAGNESIUM 1.2 mg/dL 1.8-2.4 [facility] ID Date Data Source [id number] 05/30/2021 07:37:00 PM [facility] l TSYSORDER [id number] Name Value Range Interpretation Code Description Data Julisa rce(s) Supporting Document(s) GLUCOSE 101 mg/dL 74-106 [facility] BLOOD UREA NITROGEN 7 mg/dL 7-18 [facility] CREATININE 0.72 mg/dL 0.6-1.0 [facility] SODIUM 142 mmol/L 136-145 [facility] POTASSIUM 3.5 mmol/L 3.5-5.1 [facility] CHLORIDE 102 mmol/L 98-107 [facility] CO2 31 mmol/L 21-32 [facility] CALCIUM 8.5 mg/dL 8.5-10.1 [facility] ANION GAP 9.0 mmol/L 5-12 [facility] GLOMERULAR FILTRATION RATE >90 mL/min [facility] GFR IS CALCULATED IN mL/min/1.73m2 CHRIS L FUNCTION: >90MILDLY DECREASED: 60-89MILDY TO MODERATELY DECREASED: 45-59 MODERATELY TO SEVERELY DECREASED: 30-44SEVERELY DECREASED: 15-29RENAL FAILURE: <15 AST 74 U/L 15-37 H [facility] ALT 111 U/L 12-78 H [facility] ALKALINE PHOSPHATASE 100 U/L 46-116 [facility] TOTAL BILIRUBIN 1.1 mg/dL 0.2-1.0 H [facility] TOTAL PROTEIN 7.4 g/dl 6.4-8.2 [facility] ALBUMIN 3.7 gm/dL 3.4-5.0 [facility] ID Date Data Source [id number] 05/30/2021 07:37:00 PM EDT [facility] l TSYSORDER [id number] Name Value Range Interpretation Code Description Data Julisa rce(s) Supporting Document(s) LIPASE 56 U/L 73-393 L [facility] ID Date Data Source [id number] 05/30/2021 07:26:00 PM EDT [facility] l TSYSORDER [id number] Name Value Range Interpretation Code Description Data Julisa rce(s) Supporting Document(s) WHITE BLOOD COUNT 8.3 K/mm3 4.0-10.0 [facility] RED BLOOD COUNT 4.55 M/mm3 4.00-5.50 [facility] HEMOGLOBIN 15.3 gm/dL 12.0-16.0 [facility] HEMATOCRIT 44.9 % 36.0-48.8 [facility] MEAN CELL VOLUME 98.7 fl 80-96 H [facility] MEAN CORPUSCULAR HEMOGLOBIN 33.6 pg 27.0-31.0 H [facility] MEAN CORPUSCULAR HGB CONC 34.1 g/dl 32.0-36.0 [facility] RED CELL DISTRIBUTION WIDTH 12.4 % 10.0-14.5 [facility] PLATELET COUNT 254 K/mm3 172-450 [facility] MEAN PLATELET VOLUME 8.4 fl 9.0-13.0 L [facility] GRAN % 85.1 % 50-80.0 H [facility] IG% 0.1 % 0.0-0.2 [facility] LYMPH % 7.2 % 25.0-50.0 L [facility] MONO % 6.1 % 2.0-10.0 [facility] EOS % 1.3 % 0-5.0 [facility] BASO % 0.2 % 0.0-2.0 [facility] GRAN # 7.0 K/mm3 2.0-8.00 [facility] IG# 0.0 K/mm3 0.0-0.2 [facility] LYMPH # 0.6 K/mm3 1.0-5.0 L [facility] MONO # 0.5 K/mm3 0.10-1.20 [facility] EOS # 0.1 K/mm3 0.0-0.5 [facility] BASO # 0.0 K/mm3 0.0-0.2 [facility] ID Date Data Source [id number] 05/30/2021 07:16:00 PM EDT [facility] TSYSORDER [id number] Name Value Range Interpretation Code Description Data Julisa rce(s) Supporting Document(s) HCG URINE NEGATIVE NEGATIVE [facility] ID Date Data Source [id number] 06/02/2021 11:10:00 AM EDT [facility] Name Value Range Interpretation Code Description Data Julisa rce(s) Supporting Document(s) ORGANISM [facility] COLONY COUNT N [facility] ID Date Data Source [id number] 04/27/2021 11:24:00 AM EDT [facility] ([facility]) Name Value Range Interpretation Code Description Data Julisa rce(s) Supporting Document(s) Luiz Bear CMP14 Default Laboratory test result [facility] ([facility]) A hand-written panel/profile was receive d from your office. In accordance with the [facility] Ambiguous Test Code Policy dated May 2003, we have completed your order by us ing the closest currently or formerly recognized AMA panel. We have assigned Comprehensive Metabolic Panel (14), Test Code #296658 to this request. If this is not the testing you wished to receive on this specimen, please contact the [facility] Client Inquiry/Technical Services Department to clarify the test order. We appreciate your business. ID Date Data Source [id number] 04/27/2021 11:24:00 AM EDT [facility] ([facility]) Name Value Range Interpretation Code Description Data Julisa rce(s) Supporting Document(s) Glucose [Mass/volume] in Serum or Plasma 101 mg/dL 65-99 [facility] ([facility]) Urea nitrogen [Mass/volume] in Serum or Plasma [...] IU/L 48-121 [facility] ([facility]) Aspartate aminotransferase [Enzymatic activity/volume] in Serum or Plasma 72 IU/L 0-40 [facility] ([facility]) Alanine aminotransferase [Enzymatic activity/volume] in Seru m or Plasma 73 IU/L 0-32 [facility] ([facility]) ID Date Data Source [id number] 04/28/2021 04:05:00 AM EDT [facility] Name Value [...] high normal [facility] ID Date Data Source [id number] 04/28/2021 04:05:00 AM EDT [facility] Name Value Range Interpretation Code Description Data Julisa rce(s) Supporting Document(s) Luiz Bear CMP14 Default [facility] A hand-written panel/profile was receive d from your office. Inaccordance with the [facility] Ambiguous Test Code Policy dated May2003, we have completed your order by using the closest currentlyor formerly recognized AMA panel. We have assigned ComprehensiveMetabolic Panel (14), Test Code #668362 to this request. If thisis not the testing you wished to receive on this specimen, pleasecontact the [facility] Client Inquiry/Technical Services Departmentto clarify the test order. We appreciate your business. ID Date Data Source [id number] 02/20/2021 07:35:00 AM EDT [facility] Name Value [...] 0.0-0.1 [facility] ID Date Data Source [id number] 02/24/2021 07:35:00 AM EDT [facility] Name Value Range Interpretation Code Description Data Julisa rce(s) Supporting Document(s) Vit. B1, Whole Blood 113.0 nmol/L 66.5-200.0 [facility] ID Date Data Source [id number] 02/20/2021 07:35:00 AM EDT [facility] Name Value [...] high normal [facility] ID Date Data Source [id number] 02/20/2021 07:35:00 AM EDT [facility] Name Value Range Interpretation Code Description Data Julisa rce(s) Supporting Document(s) Iron Bind.Cap.(TIBC) 266 ug/dL 250-450 [facility] UIBC 162 ug/dL 131-425 [facility] Iron 104 ug/dL 27-159 [facility] Iron Saturation 39 % 15-55 [facility] ID Date Data Source [id number] 02/20/2021 07:35:00 AM EDT [facility] Name Value Range Interpretation Code Description Data Julisa rce(s) Supporting Document(s) Folate, Hemolysate 410.0 ng/mL Not Estab. [facility] Folate, RBC 990 ng/mL >498 [facility] ID Date Data Source [id number] 02/20/2021 07:35:00 AM EDT [facility] Name Value Range Interpretation Code Description Data Julisa rce(s) Supporting Document(s) Hemoglobin A1c 5.6 % 4.8-5.6 [facility] Prediabetes: 5.7 - 6.4 Diabetes: >6.4 Glycemic control for adults with diabetes: <7.0 ID Date Data Source [id number] 02/20/2021 07:35:00 AM EDT [facility] Name Value Range Interpretation Code Description Data Julisa rce(s) Supporting Document(s) Vitamin D, 25-Hydroxy 31.8 ng/mL 30.0-100.0 [facility] Vitamin D deficiency has been defined by the [place] ofMedicine and an Endocrine Society practice guideline as alevel of serum 25-OH vitamin D less than 20 ng/mL (1,2).The Endocrine Society went on to further define vitamin Dinsufficiency as a level between 21 and 29 ng/mL (2).1. IOM ([place] of Medicine). 2010. Dietary reference intakes for calcium and D. [place]: The National Academies Press.2. Dena MF, Donnie WILBURN, Lacy BUSH, et al. Evaluation, treatment, and prevention of vitamin D deficiency: an Endocrine Society clinical practice guideline. JCEM. 2010; 96(7):1911-30. ID Date Data Source [id number] 02/20/2021 07:35:00 AM EDT [facility] Name Value Range Interpretation Code Description Data Julisa rce(s) Supporting Document(s) Phosphorus 2.8 mg/dL 3.0-4.3 Below low normal [facility] ID Date Data Source [id number] 02/20/2021 07:35:00 AM EDT [facility] Name Value Range Interpretation Code Description Data Julisa rce(s) Supporting Document(s) Vitamin B12 768 pg/mL [id number] [facility] ID Date Data Source [id number] 02/20/2021 07:35:00 AM EDT [facility] Name Value Range Interpretation Code Description Data Julisa rce(s) Supporting Document(s) Magnesium 1.6 mg/dL 1.6-2.3 [facility] ID Date Data Source [id number] 02/20/2021 07:35:00 AM EDT [facility] Name Value Range Interpretation Code Description Data Julisa rce(s) Supporting Document(s) Ferritin, Serum 201 ng/mL 15-150 Above high normal [facility] ID Date Data Source [id number] 01/24/2021 03:05:35 PM EST [facility] NT INFORMATIONPatient MRN Name Date of Age Gend*PT [id number] Katalina Teran Sonia 1990 31 years F IPPT Location Admission Date/Time Visit ID Attending [id number] 01/23/21 0757 --- Efren Myers MD([id number]) EPI ID CSN Admitting Provider [id number] Efren Myers MD([id number]) Attestation signed by Efren Myers MD at 01/24/2021 3:05 PMI saw and evaluated the patient and reviewed MICHAEL Crain's note. Lupe with the history, physical and medical decision makingSignature: LUX De Leonate: January 24, 2021Time: 3:04 PM Surgical Discharge SummaryKatalina YitMRN: [id number] date: 01/23/2021dmitting Physician: LUX De Leonischarge date [...] Medication Reconcilliation Sheet Katalina Teran Medication Instructions [place]:[id number] Printed on:01/24/21 1451Medication Informationacetaminophen (TYLENOL) 325 MG tabletTake 2 tablets [...] mcg total) by mouth dailyDiscussed with Dr MyersSitaniaature: Latha Barreto PADate: January 24, 2021Time: 2:53 PMCC: Latha Barreto, PACC: JUDY ORDONEZ MD Name Value Range Interpretation Code Description Data Julisa rce(s) Supporting Document(s) ID Date Data Source [id number] 01/24/2021 11:38:29 AM EST [facility] Name Value Range Interpretation Code Description Data Julisa rce(s) Supporting Document(s) POC NOVA GLU 128 mg/dL (70-99) H [facility] [place] [facility]ICAL STAFF ID Date Data Source [id number] 01/24/2021 05:54:25 AM EST [facility] Name Value Range Interpretation Code Description Data Julisa rce(s) Supporting Document(s) POC NOVA GLU 145 mg/dL (70-99) H [facility] [place] [facility] ID Date Data Source [id number] 01/24/2021 12:13:49 AM EST [facility] Name Value Range Interpretation Code Description Data Julisa rce(s) Supporting Document(s) POC NOVA GLU 127 mg/dL (70-99) H [facility] [place] [facility] ID Date Data Source [id number] 01/23/2021 06:01:09 PM EST [facility] Name Value Range Interpretation Code Description Data Julisa rce(s) Supporting Document(s) POC NOVA GLU 163 mg/dL (70-99) H [facility] ID Date Data Source [id number] 02/06/2021 05:12:39 PM EDT [facility] [place], [place] [address]Tel# Surgical Pathology ReportPatient Name: KATALINA TERAN: 1990Accession #:[id number](s) ReceivedA: Liver biopsyClinical Diagnosis and HistoryMorbid obesity Procedures/AddendaAddendum Date Ordered: 02/06/2021 Status: Signed Out Date Complete: 02/06/2021 By: Airam Rodrigues Date Reported: 02/06/2021 Addendum DiagnosisFINAL DIAGNOSIS (FOLLOWING EXTERNAL CONSULTATION)LIVER, WEDGE BIOPSY: STEATOHEPATITIS WITH BRIDGING FIBROSIS. SEE COMMENT. INCREASED FOAMY MACROPHAGES.Addendum CommentThe case has been reviewed by Dr. Latha Burk at [facility] ([id number]). She states, "The wedge biopsy shows moderateto [...] 01/31/2021Electronically Signed Out By Jewell Weber MD [facility], [place] [address]zbsPzoutaohu component performed at [facility], [facility], [address], [place], [address].[facility] at [facility], [address] [place] [address], [id number]. This report may includeimmunohistochemical or in-situ hybridization results. Testing wasdeveloped and the performance characteristics determined by [facility] [employer] [facility] [employer] as required by CLIA '88. The FDA hasdetermined that approval for specific use is not necessary for clinicaluse. T he quality of Hematoxylin and Eosin stains and as applicable, forall immunohistochemical and/or special stains, including positive andnegative controls, were reviewed and considered appropriate.ICD codes E66.01CPT codesA: 74836K, 37882T, 09480Q, 23897U, 75200P, 51075d, 55855(4), 82785L Name Value Range Interpretation Code Description Data Julisa rce(s) Supporting Document(s) ID Date Data Source [id number] 01/23/2021 12:30:59 PM EST [facility] INFORMATIONPatient MRN Name Date of Age Gend*PT [id number] Katalina Teran 1990 31 years F IPPT Location Admission Date/Time Visit ID Attending ProviderPERIOP POOL 01/23/21 0757 --- Efren Myers MD([id number]) EPI ID CSN Admitting Provider [id number] Efren Myers MD([id number])CREATION, GASTRIC BYPASS, YENNIFER-EN-Y, LAPAROSCOPIC, WITH LIVER BIOPSY ProcedureNoteKatalina Teran CSN:[id number]/1/2021Surgeon(s):CRISTA De Leonurgical Assist: Russell Crain:OR Truck Washer: Nemo Devlin, RNSurgical Assist: MICHAEL CrainOR Relief Truck Washer: Charo Barros RNOR Relief Scrub: Pallavi Osborne [...] Tissue Tissue SURGICAL PATHOLOGY EXAM Efren Myers MD/11/2020 1039Estimated Blood Loss: 20 mLBlood Administered: See [...] a fatty liver. We covered complicationsincluding: , GA, DVT, PE, leaks, sepsis, gallbladder disease, anastomoticulcers, [...] with a white load on a power Bransford stapler atthe 50 cm point. The biliopancreatic limb and the Yennifer limb were cepvozicncoure-xp-hctp. The intermesenteric defect between the two limbs was closed with arunning 3-0 V-Loc suture. Once this was closed, an enterotomy was made in thebiliopancreatic limb and then in the Yennifer limb. The 60-mm Bransford stapler with awhite load was inserted into [...] done, the anastomosis wastested for leaks. My cement tester assistant clamped across the Yennifer limb with the bowel clampwhile I passed the endoscope into the esophagus, into the pouch, and into theRoux limb. I insufflated with air and my cement tester assistant irrigated over theanastomosis with normal saline. [...] Center(s) Supporting Document(s) ID Date Data Source [id number] 01/23/2021 12:28:32 PM EST [facility] Name Value Range Interpretation Code Description Data Julisa rce(s) Supporting Document(s) POC NOVA GLU 243 mg/dL (70-99) H [facility] [place] PERFORMED BY [facility] CLINICAL STAFF ID Date Data Source [id number] 01/23/2021 10:55:02 AM EST [facility] NT INFORMATIONPatient MRN Name Date of Age Gend*PT [id number] Katalina Teran Sonia 1990 31 years F SDAPT Location Admission Date/Time Visit ID Attending Provider --- --- --- --- EPI ID CSN Admitting Provider [id number] ---AirwayPatient location during procedure: ORUrgency: electiveDifficult airway: [...] to lips: 21 cmPlacement verified by: + [id number] view: grade IIa - partial view of glottis Name Value Range Interpretation Code Description Data Julisa rce(s) Supporting Document(s) ID Date Data Source [id number] 01/23/2021 09:49:57 AM EST [facility] Name Value Range Interpretation Code Description Data Julisa rce(s) Supporting Document(s) POC NOVA GLU 122 mg/dL (70-99) H [facility] [place] [facility] CLINICAL STAFF ID Date Data Source [id number] 01/23/2021 09:57:26 AM EST [facility] Name Value Range Interpretation Code Description Data Julsia rce(s) Supporting Document(s) POC BHCG [facility] <5.0 IU/L [facility] INTERPRETATION:<5.0 NEGATIVE5.0- 25.0 INDETERMINATE>25.0 POSITIVELEVELS BETWEEN 5 AND 25 IU/L MAY INDICATEEARLY AND SHOULD BE REPEATED ANA BLOOD SAMPLE AFTER 48 HOURS.PERFORMED BY [facility] CLINICAL STAFF ID Date Data Source [id number] 01/23/2021 09:32:20 AM EST [facility] NT INFORMATIONPatient MRN Name Date of Age Gend*PT [id number] Katalina Teran 1990 31 years F SDAPT Location Admission Date/Time Visit ID [facility] 0757 --- Efren Myers MD([id number]) EPI ID CSN Admitting Provider [id number] Efren Myers MD([id number])H&P reviewed. The patient was examined and there are no changes to the H&P.Efren Myers MD9:32 AM Name Value Range Interpretation Code Description Data Julisa rce(s) Supporting Document(s) ID Date Data Source [id number] 01/19/2021 02:23:43 PM EST [facility] NT INFORMATIONPatient MRN Name Date of Age Gend*PT [id number] Katalina Teran 1990 31 years F OPPT Location Admission Date/Time Visit ID Attending Provider --- --- --- Efren Myers MD([id number]) EPI ID CSN Admitting Provider [id number] Efren Myers MD([id number])HISTORY PHYSICALName: Katalina Teran : 1990 Sex: female [...] tablet Take 325 mg by mouth daily HistoricalProviderMDLoratadine 10 MG CAPS Take 1 capsule by mouth daily Historical Provider, Georginaodafinil (PROVIGIL) 200 MG tablet Take 200 mg by mouth daily HistoricalProviderGATO FORMULARY Insert 2 capsules into the vagina daily Boric acid vaginalsuppositories Historical Provider, omeprazole (PRILOSEC) 20 MG capsule Take 20 mg by mouth daily HistoricalProviderMDtriamcinolone (KENALOG) 0.1 % ointment Apply topically daily [...] by mouth daily 01/19/21Historical Provider, nystatin (MYCOSTATIN) 170396 UNIT/ML suspension Take 500,000 Units by mouth [...] file Gets together: Not on file Attends pentecostalism service: Not on file Active member of [...] warm and dry.HEENT: She is normocephalic, atraumatic. Jane Lew conjunctivae. Anicteric sclerae.Pupils are equal, round, reactive [...] hepatosplenomegaly. Negative CVAT.GENITAL/RECTAL: Deferred.MUSCLE/SKELETAL: Strength is 5/5. Market Intelligence Consultant are equal.NEUROLOGICALLY: Cranial nerves II through XII [...] parts of this document, were dictated using [employer] speaking software. A reasonable attempt at proofreading has beenmade to minimize errors. Please call with any questions or corrections. Name Value Range Interpretation Code Description Data [facility](s) Supporting Document(s) ID Date Data Source [id number] 01/19/2021 12:39:49 PM EST [facility] Name Value Range Interpretation Code Description Data [facility](s) EKG [facility] IASGFg5pIbQJYrWvk4BpRnSyFKKtDL5acdp7Q6N7pPUiB1CpjTUmy5blQ6ZrB4BoTUElAASPXW4MxYYm jb2 [file] UmtCSfhkRx1b2I0eGuNS09S3TyHUfAwFNl2UNxFafgJW5qr6q7mFTTikl9yinH2A0gGxc1dXjtzL/Leticia mP79bTMS8uJeIzxZsa/0VO7uMVfGOcav0nXW+e+lJM vWjJU3msxATytqEO/ocOaA2b0hMVMvOoHMkLUX0GP8C9fj5vkmM74QhJO254ySax7buWe0gr6tuGVKFW TK5FFK9K8JUXSASr62dZOcalFWlvFUd3RghzXQltKPNw3uGUkbsSpDQRE4HJETKovSFBW4hNA3fQZiTV aJQgS+UFAtQNSYv9uhaUDdA8HkZUjqxKBKzSOQpUzh JFyoj96F36YhWIS9pYV3IrUaQw6KiTULCBB740ZcZ5DrhmOWbCTE7CHYp7MuDubQ/LIk3iE8ebs07ijD exjTWz76qDTJofa0AfxHaRbEBa7CjwqzzbpbkvpewzeqacnuetzzDNA4GoqZwCRlMsnLqR3xSiW0Jt7B +r4NG93fCR1xcZxfRzLzypB9C5jK3MWJgGlENRK6KY YJ0KIT0ea8bkBLJtH93UIJ2nGPJut5RY9ESAsSKzr3odxItekCD/LbsVQXoqMXEcTTnu8qchPgILLZeY WjOIOjRzto++oRLHTnMQ8wigSZVeuccPUSYMkXv0RWlbKDictHeWerhsDCi/JCwzeeu31reHzhnGsKtb pjDqIIGBeicW2S/qLYg+pZMf25IrdbjV09knu2BlDX XXWt7cqJ0NfXPgrhFH7B++HFNgnxeMfyqUb3gzbUtKwI5s27IpX4ab3WcbIfW9fysICAUkUGDSmP4IHQ vVR+Uiz92VnhzJhD8ToWqiqNfqJQ6i3Y8a11Z8tkVdX9hcAGS/VLolbuaea13mcsdvrhWd3FbIh8MRO8 E1nSAijR22C+76BjDcdL+/lAw/wM9I82DVYTd [file] hZw7zV160myJ916u21DlbIg6c/4Qw8s4mjQZ24qnba yQ84/nJKYT3Jl3tClr/e3RYi2aBu46jX3tr6Z3zeAo/+wnPq7C9vwWg3yrRs7rrd/zb137JZG/93vZy/ P3/95pdkE4m/8EdBP+Di8/3PHx8+3f20/Q458xy5/l9/v324vf/m4r5Pkd99/Sph0sCiG7w0s15/3hLL g34PHo9p7fnw227/tu6J/CaC4l4d7/27ufLg2gs97j mXR/3BhyrK62f12D2qe3iLfo0sldIwGR0f09Ias6O+CwA4K9Brua402uYMIaEeQupu9LNc8hI2ou9mT1 jhYikr2PXE9u1Rsa8Ob0+dbU/5/P38d2xwRH2xdp04+fbL27cyi4sz/wBkT4C7s+5u6hJ2skjQ7+HrRx 156xivhN8v71+m2fb+5q8Tn2aV71/pVx82DPD5PFUe gt4uBc2/NvdLcBi2R83ojqxG67/ePfz/7S9/cOjIyD7g16OKwaxl4e53aU11uia09j47o6/vn95+3yL5 5PZ+i6Pt+0tr4652USnRdB4s95Q1mx8wD5knZ5a2wV2I8XZeAcj8wa+NTZgPyfgEwId84BtEcEX4z6ff ju92x4GNzc1Yec0OgbBVc22bukrSa0sAi/u79mQcF4 +ecH/FihY51d+9Ou8g4e/+PihMSU8q3WqR5yYbv60jnozZ3mwGvYTGvipmDxho/dLE1m8top/oQk272p TSXY/jg387oRwltrY/qTnShXcAG4kr1Z6inytR637mg5Gat7UnPH2Km07wtiquh61bfjdfWkon55C1wT m7Cht349resCnvGUw70q471uy46DuC3fg06Q5/QsuZ pObaqaKwnJTqBY2LCY1xp8PhXwT6MZCus5PqOPpdGQy7tJKvKXctscHwe4GubnntM7Skg7RcLbArEYXk NuRhJmt7ZSNqPsZ2lMKgAnTdXNHgA9NsMOTlKpB3IqFdBMLOKK5HFQOawdJkLxHcKZC+XfCwTA5qejdm CYGrv3JlRWgzAKvkGGMvJ8W8bGdaUJCwU5SgaZ53SP GxZ5TofiY6JNY7YYZdWvMnFVWpvRToOPUhFHD+GlVcYB1bkrkgLSJld7MrRAayIBE8fF1bFLrJTFFZHO lGUNkkOnL3s01twxEZKPSqLZRbDK2WbtWfuAyuypScgGFuXVX4EhBbQDYfVkDwZhR9FBCWMSHdJMXeBB JeCLIzH7OagIlrNQqEQTFROXrUWCruAcFms7W2LFWp drOPKPVBKWXOXFWZATPPGGP0TEH0THc0YKgtK9Q9XiafV7YpEN1HV1ZyLYZdSJKLOLArckHoAF8SapUh aN1qFWsMKMJQBPhEOXzfPuV1z80zqhHCYHRvOGRaZSdvRSBcTUEnJPKjNSOwUKEkQHQkEAFzBN3FK6Gy XCVzMFVCFZR7i7UrHBTkkoculbqtIj4hinSwLin+Pg lhEMHrp9TfYNlsG1A0vBFxX7LuX3LfFC1JqXIvTMdvKKZrGIBaNAVsD018hwDpZC8+PI7fj8FwIluwRL UEDFImUJStSTThZCK5FkFtVFYqCZWwXRYjWxU4ItQsLoHMFUVmCOT7SrF4VSVvEMGeIDKdKAktZNSzZL VqONW1JJEqKJXnKO4iXkOaQHEbPYOzAWQpFDEhUUGa zjMLXPVfIOEvVKVkEBE2ABYkRYAmMGniODFbZWBxVNS4DOKuVRClYP4nUyMdXZWvLVJfWqbtWVVgJGXw dnIXMIMoCWGpIRL5FkFiFDSaKZRySBfmLSOcXLHoDlu0BAEvAQHcIK2xDfAzOZUiJHC6RPxuKIBgWBWk biAKMDAwMDAwMDUyMyAwMDAwMCBuIAowMDAwMDAwNj TnOXZnRBJrFD5yVqLiVZDfFRB4TUOoSFOoVKJsvzYTMKXmANFfYFh3DSJgJWVyNZCoOEftJCFhHOIqFZ D0TDAhXGAgCZ2fUvGaSOUzSGDcWZXiZUFyNAEapjZNHBRsYUDwKTW5ADBgFCRoLIPeVAoyAXZfFGVtNy t9VDVqKKTyMP8oKtIeRJEvDJB8LXVnUXJtGPTrloMU KCMeCEL1HpP1TJZdDKIiWBYjIEzbXVVlLDExLmO4CBCtFHPkNL8lDpDzHGUnUVB0InQjEORbWOSgqzHD JCIiKTXvSLO7AaJlPMUnUSJwXIajCDUqHKIpLPUqQPD7FAI1KXNsSvWdHNvsHVCSAMwUH7GuoyMsOxZF E9rfPp7xIpXnUNSKC0Puc9JyJOCuMXLPXw6+HjP5GGF5aJCeYet2XkVmSaoqRWSISt== ID Date Data Source [id number] 01/19/2021 08:46:25 PM EST [facility] SPEC EXP DATE 01/24/2021ATI ENT ABO/Rh O NEGATIVEANTIBODY SCREEN NEGATIVETESTING SITE PERFORMED AT [address] [place] [address] Name Value Range Interpretation Code Description Data Julisa rce(s) Supporting Document(s) TYPE AND SCREEN [facility] ANTIBODY SCREEN NEGATIVE ID Date Data Source [id number] 01/19/2021 06:51:56 PM EST [facility] Name Value Range Interpretation Code Description Data Julisa rce(s) Supporting Document(s) SODIUM 138 mmol/L (136-145) [facility] POTASSIUM 4.4 mmol/L (3.6-5.2) [facility] CHLORIDE 101 mmol/L (100-108) [facility] CO2 30 mmol/L (22-31) [facility] ANION GAP 7 mmol/L (7-16) [facility] UREA NITROGEN 13 mg/dL (7-24) [facility] CREATININE 0.82 mg/dL (0.60-1.00) [facility] BUN/CREAT RATIO 15.9 RATIO (10.0-20.0) [facility] GLUCOSE 113 mg/dL (70-99) H [facility] CALCIUM 9.3 mg/dL (8.4-10.2) [facility] TOTAL PROTEIN 7.6 g/dL (6.4-8.2) [facility] ALBUMIN 3.9 g/dL (3.5-4.6) [facility] GLOBULIN 3.7 g/dL (2.7-4.3) [facility] ALB/GLOB RATIO 1.1 RATIO [facility] ALKALINE PHOSPHATASE 79 U/L (45-117) [facility] BILIRUBIN,TOTAL 0.4 mg/dL (0.0-1.0) [facility] PLEASE NOTE:Total bilirubin results may be falselyelevated in patients taking Eltrombopag. AST (SGOT) 221 U/L (11-39) H [facility] ALT (SGPT) 207 U/L (12-78) H [facility] GFR >60 ml/min/1.73m2 (>59) [facility] GFR ( AMER) >60 ml/min/1.73m2 (>59) [facility] GFR INTERPRETATION [facility] --NORMAL KIDNEY FUNCTION OR MILD DISEASE - GFR >OR= 60CHRONIC KIDNEY DISEASE - GFR 15 - 59RENAL FAILURE - GFR <15 Est. GFR calculation based on the MDRDstudy equation, which assumes a steadystate for creatinine. Est. GFR should notbe used for medication dosing. ID Date Data Source [id number] 01/19/2021 06:51:56 PM EST [facility] Name Value Range Interpretation Code Description Data Julisa rce(s) Supporting Document(s) TSH,ULTRASENSITIVE @ 1.890 mIU/L (0.360-4.170) [facility] ID Date Data Source [id number] 01/19/2021 05:50:16 PM EST [facility] Name Value Range Interpretation Code Description Data Julisa rce(s) Supporting Document(s) HEMOGLOBIN A1C @ 6.0 % (4.0-6.0) [facility] Performed using Siemens Gilliam immunoassa y.Care must be taken when interpreting PwG9nrzdtdqh in patients with a hemoglobin variantor decreased erythrocyte lifespan. Values 5.7 - 6.4% suggest prediabetes.Values >=6.5% are diagnostic for diabetes.REFERENCE: DIABETES CARE 2018: 41(S13-S27). EST AVERAGE GLUCOSE 126 mg/dL [facility] ID Date Data Source [id number] 01/19/2021 05:24:34 PM EST [facility] Name Value Range Interpretation Code Description Data Julisa e(s) Supporting Document(s) WBC 9.4 10*3/uL (4.1-11.0) [facility] [place] RBC 4.63 10*6/uL (4.00-5.40) [facility] HGB 14.3 g/dL (12.0-16.0) [facility] HCT 42.6 % (36.0-47.0) [facility] MCV 91.9 fL (80.0-95.0) [facility] MCH 31.0 pg (27.0-32.0) [facility] MCHC 33.7 g/dL (32.0-36.0) [facility] RDW 13.9 % (10.5-14.5) [facility] PLT 291 10*3/uL (150-450) [facility] MPV 7.1 fL (7.1-10.7) [facility] Date Data Source [id number] 01/19/2021 10:20:00 AM EST [facility] Name Value Range Interpretation Code Description Data Julisa rce(s) Supporting Document(s) SARS coronavirus 2 RNA Not Detected [facility] [place] This lab was ordered by Lab [facility] and reported by [employer]. ID Date Data Source [id number] 01/20/2021 03:10:04 PM EST [facility] [place] Name Value Range Interpretation Code Description Data Julisa rce(s) Supporting Document(s) SARS-COV-2 JAQUELIN [facility] Not DetectedReference range: Not Detecte d This nucleic acid amplification test was developed and its performance characteristics determined by [employer]. Nucleic acid amplification tests include RT-PCR and [...] detected) result in this assay. Performed At: [facility] [address] [place], [place] [id number] Chayito Anton PhD Ph:[phone] ID Date Data Source [id number] 10/26/2020 05:15:34 PM EST [facility] LABORATORY [place], [place] [address]Tel# Surgical Pathology ReportPatient Name: KATALINA TERAN: 1990Accession #:[id number](s) ReceivedA: Antrum bxClinical Diagnosis and HistoryReflux, r/o [...] 10/26/2020Electronically Signed Out By Christopher Escobedo MD [facility] [place] [address] 24907xkdKrczdkwwy component performed at [facility], [address] [place] [address], [address].Reported at [facility], [address] [place] [address], [phone]. This report may includeimmunohistochemical or in-situ hybridization results. Testing wasdeveloped and the performance characteristics determined by [facility] [employer] [facility] as required by CLIA '88. The FDA hasdetermined that approval for specific use is not necessary for clinicaluse. The quality of Hematoxylin and Eosin stains and as applicable, forall immunohistochemical and/or special stains, including positive andnegative controls, were reviewed and considered appropriate.ICD codes K21.9CPT codesA: 63124X, 36125m Name Value Range Interpretation Code Description Data Julisa rce(s) Supporting Document(s) ID Date Data Source [id number] 10/25/2020 02:08:17 PM EST [facility] NT INFORMATIONPatient MRN Name Date of Age Gend*PT [id number] Katalina Teran Sonia 1990 30 years F OPPT Location Admission Date/Time Visit [facility] [place] [facility]25[facility]20 1238 --- Leann Stinson MD([id number]) EPI ID CSN Admitting Provider [id number] Leann Stinson MD([id number])Endoscopic Gastroduodenoscopy Procedure NotePatient: Katalina Scott TuttSurgery Date: [...] Low Setting High Applied By Endoscope ENDOSCOPE [id number] Leann Stinson MD Endoscope Pediatric (ENDO)Consent:After obtaining [...] rce(s) Supporting Document(s) ID Date Data Source [id number] 10/25/2020 01:40:26 PM EST [facility] NT INFORMATIONPatient MRN Name Date of Age Gend*PT [id number] Katalina Teran Sonia 1990 30 years F OPPT Location Admission Date/Time Visit ID [facility] [place] 10/25/20 1238 --- Leann Stinson MD([id number]) EPI ID CSN Admitting Provider [id number] Leann Stinson MD([id number])Inpatient History & PhysicalKatalina Scott TuttMRN:[id number]:1. GERDPlan:1. Proceed with upper endoscopy as planned.HPI: [...] mouth daily 10/25/2020 at Unknowntime nystatin (MYCOSTATIN) [id number] UNIT/ML suspension Take 500,000 Units by mouth [...] rce(s) Supporting Document(s) ID Date Data Source [id number] 10/21/2020 10:00:00 AM EST [facility] Name Value Range Interpretation Code Description Data Julisa rce(s) Supporting Document(s) SARS coronavirus 2 RNA [facility] This lab was ordered by [facility] and reported by [facility]. ID Date Data Source [id number] 10/23/2020 01:10:51 AM EST [facility] Name Value Range Interpretation Code Description Data Julisa rce(s) Supporting Document(s) SARS-COV-2 JAQUELIN [facility] Not DetectedReference range: Not Detecte d This nucleic acid amplification test was developed and its performance characteristics determined by [employer]. Nucleic acid amplification tests include PCR and [...] detected) result in this assay. Performed At: [facility] [place], [place] [id number] Chayito Anton PhD Ph:[phone] ID Date Data Source [id number] 09/20/2020 04:44:00 PM EDT [facility] ([facility]) Name Value Range Interpretation Code Description Data Julisa rce(s) Supporting Document(s) Lab - Specimen Rejec Laboratory test result [facility] ([facility]) DID NOT SEND MICAH TOPS- ONLY SST Test(s) Ordered Laboratory test result [facility] ([facility]) DID NOT SEND MICAH TOPS- ONLY SST Rejection Reason Laboratory test result [facility] ([facility]) DID NOT SEND MICAH TOPS- ONLY SST ID Date Data Source [id number] 09/20/2020 04:44:00 PM EDT [facility] Name Value Range Interpretation Code Description Data Julisa rce(s) Supporting Document(s) LAB - SPECIMEN REJECTION [facility] Specimen Integrity/Specimen Recollection The patient sample needs to be resubmitted for the following reason: Test(s) Ordered HEP C ANTIBODY W/REFLE C [facility] Rejection Reason No Spec Received [facility] { One or more of the tests you ordered cannot be performed.{ Please recollect, reorder, and resubmit if needed. ID Date Data Source [id number] 09/20/2020 11:55:00 AM EDT [facility] ([facility]) Name Value Range Interpretation Code Description Data Julisa rce(s) Supporting Document(s) Laboratory test finding (navigational concept) Laboratory test resu lt 0.0-0.9 [facility] ([facility]) ID Date Data Source [id number] 09/23/2020 02:02:00 PM EDT [facility] Name Value Range Interpretation Code Description Data Julisa rce(s) Supporting Document(s) Hepatitis C virus Ab Signal/Cutoff in Serum or Plasma by Immunoassay <0.1 s/coratio 0.0-0.9 [facility] ID Date Data Source [id number] 09/23/2020 02:05:00 PM EDT [facility] Value Range Interpretation Code Description Data Julisa rce(s) Supporting Document(s) Herpes simplex virus 1 IgG Ab [Units/volume] in Serum by Immunoassay 43.10 index 0.00-0.90 H [facility] Negative <0.91 Equivocal 0.91 - 1.09 Positive >1.09 Note: Negative indicates no antibodies detected to HSV-1. Equivocal may suggest early infection. If clinically appropriate, retest at later date. Positive indicates antibodies detected to HSV-1. Herpes simplex virus 2 IgG Ab [Units/volume] in Serum by Immunoassay <0.91 index 0.00-0.90 [facility] Negative <0.91 Equivocal 0.91 - 1.09 Positive >1.09 Note: Negative indicates no antibodies detected to HSV-2. Equivocal may suggest early infection. If clinically appropriate, retest at later date. Positive indicates antibodies detected to HSV-2. ID Date Data Source [id number] 09/23/2020 02:02:00 PM EDT [facility] Value Range Interpretation Code Description Data Julisa rce(s) Supporting Document(s) HIV 1+2 Ab+HIV1 p24 Ag [Presence] in Serum or Plasma b y Immunoassay Non Reactive Non Reactive [facility] ID Date Data Source [id number] 09/23/2020 02:02:00 PM EDT [facility] Name Value Range Interpretation Code Description Data Julisa rce(s) Supporting Document(s) Hepatitis B virus surface Ab [Presence] in Serum Reactive [facility] Non Reactiv e: Inconsistent with immunity, less than 10 mIU/mL Reactive: Consistent with immunity, greater than 9.9 mIU/mL ID Date Data Source [id number] 09/20/2020 09:13:00 PM EDT [facility] Name Value Range Interpretation Code Description Data Julisa rce(s) Supporting Document(s) Treponema pallidum Ab [Presence] in Serum NON-REACTIVE NORMAL:NON LYNETTE CTIVE [facility] ID Date Data Source [id number] 09/20/2020 08:15:00 AM EDT [facility] ([facility]) Name Value Range Interpretation Code Description Data Julisa rce(s) Supporting Document(s) Hepatitis B virus surface Ab [Units/volume] in Serum b y Radioimmunoassay (WAGNER) Laboratory test result [facility] ([facility]) .~.~<DG1.3.1>Z01.419</DG1.3.1><DG1.3.1>Z01.419</DG1.3.1><DG1.3.1>Z01.419</DG1.3. 1><D ID Date Data Source [id number] 09/20/2020 08:15:00 AM EDT [facility] ([facility]) Name Value Range Interpretation Code Description Data Julisa rce(s) Supporting Document(s) HSV 1 IgG, Type Spec 43.10 index 0.00-0.90 Above high normal [facility] ([facility]) .~.~<DG1.3.1>Z01.419</DG1.3.1><DG1.3.1>Z01.419</DG1.3.1><DG1.3.1>Z01.419</DG1.3. 1><D HSV 2 IgG, Type Spec Laboratory test result 0.00-0.90 [facility] ([facility]) .~.~<DG1.3.1>Z01.419</DG1.3.1><DG1.3.1>Z01.419</DG1.3.1><DG1.3.1>Z01.419</DG1.3. 1><D ID Date Data Source [id number] 09/20/2020 08:15:00 AM EDT [facility] ([facility]) Name Value Range Interpretation Code Description Data Julisa rce(s) Supporting Document(s) HIV Screen 4thGeneration wRfx Laboratory test result [facility] ([facility]) .~.~<DG1.3.1>Z01.419</DG1.3.1><DG1.3.1>Z01.419</DG1.3.1><DG1.3.1>Z01.419</DG1.3. 1><D ID Date Data Source [id number] 09/20/2020 08:15:00 AM EDT [facility] ([facility]) Name Value Range Interpretation Code Description Data Julisa rce(s) Supporting Document(s) Treponema pallidum Ab [Presence] in Serum Laboratory test result [facility] ([facility]) .~.~<DG1.3.1>Z01.419</DG1.3.1><DG1.3.1>Z01.419</DG1.3.1><DG1.3.1>Z01.419</DG1.3. 1><D ID Date Data Source [id number] 09/20/2020 08:15:00 AM EDT [facility] ([facility]) Name Value Range Interpretation Code Description Data Julisa rce(s) Supporting Document(s) Laboratory test finding (navigational concept) Laboratory test result [facility] ([facility]) ID Date Data Source [id number] 09/08/2020 11:07:00 AM EDT [facility] ([facility]) Name Value Range Interpretation Code Description Data Julisa rce(s) Supporting Document(s) Gonococcus by Jaquelin Laboratory test result [facility] ([facility]) ADD TRICH~.~.~<DG1.3.1>Z01.419</DG1.3.1><DG1.3.1>Z01.419</DG1.3.1><DG1.3.1>Z01.419</ DG1.3.1> Chlamydia by Jaquelin Laboratory test result [facility] ([facility]) ADD TRICH~.~.~<DG1.3.1>Z01.419</DG1.3.1><DG1.3.1>Z01.419</DG1.3.1><DG1.3.1>Z01.419</ DG1.3.1> Trich vag by Jaquelin Laboratory test result [facility] ([facility]) ADD TRICH~.~.~<DG1.3.1>Z01.419</DG1.3.1><DG1.3.1>Z01.419</DG1.3.1><DG1.3.1>Z01.419</ DG1.3.1> ID Date Data Source [id number] 09/08/2020 11:07:00 AM EDT [facility] ([facility]) Name Value Range Interpretation Code Description Data Julisa rce(s) Supporting Document(s) Cytology report of Cervical or vaginal smear or scrapi ng Cyto stain.thin prep Laboratory test result [facility] ([facility]) ADD TRICH~.~.~<DG1.3.1>Z01.419</DG1.3.1><DG1.3.1>Z01.419</DG1.3.1><DG1.3.1>Z01.419</ DG1.3.1> ID Date Data Source [id number] 09/10/2020 08:08:00 AM EDT [facility] Name Value Range Interpretation Code Description Data Ujlisa rce(s) Supporting Document(s) Chlamydia trachomatis rRNA [Presence] in Unspecified specimen by Probe and target amplification method Negative Negative [facility] Neisseria gonorrhoeae rRNA [Presence] in Unspecified specimen by Probe and target amplification method Negative Negative [facility] Trichomonas vaginalis DNA [Presence] in Unspecified specimen by Probe and target amplification method Negative Negative [facility] ID Date Data Source [id number] 08/30/2020 12:49:00 PM EDT [facility] [address] [place] [address] PHONE: [phone] FAX: [phone] Name .................. : THERESA Brown Acct Number.................. : [id number] ROOM. ................. : [facility] MR Number ................... : [id number] Stay type ............. : E/R Discharge Date......... ... : 08/29/20 Admit Date ......... : 08/29/20 Admit Phys .................... : MAINE MCKEON Date of ....... : 1990 Family Phys ................... : JOSÉ LUIS SONIA Phone .................. : [phone] Age ................................ : 30 Film# .................. .:[id number] Sex ................................. : F Unsigned transcriptions are preliminary reports and do not represent a medical or legal document CT ABD & PELVIS W/ IV ONLY [id number] COMPLETE:08/29/20 22:07 DLA 44733 Reason(s): Lower and LLQ abdominal pain. CT [...] diarrhea. Fatty liver. Page 1 of 2 [facility] [address] [place] [address] PHONE: [phone] FAX: [phone] Name .................. : THERESA Brown Acct Number.................. : [id number] ROOM. ................. : [address] Number ................... : [id number] Stay type ............. : E/R Discharge Date......... ... : 08/29/20 Admit Date ......... : 08/29/20 Admit Phys .................... : MAINE MCKEON Date of ....... : 1990 Family Phys ................... : JOSÉ LUIS SCOTT Phone .................. : [phone] Age ................................ : 30 Film# .................. .:[id number] Sex ................................. : F Unsigned transcriptions are preliminary reports and do not represent a medical or legal document CT ABD & PELVIS W/ IV ONLY [id number] COMPLETE:08/29/20 22:07 DLA 20040 Reason(s): Lower and LLQ abdominal pain. While [...] By Sebastián Hayward M.D. , 08/30/20 12:49, [facility] Transcribe Initials: YANELY , Transcribe Date: 08/29/20 22:54, Dictation Date: Copy for: LAURA Brown via fax Copy for: EMERGENCY DEPT via modem Copy for: 710 MED REC DISCHARGED Page 2 of 2 Name Value Range Interpretation Code Description Data Julisa rce(s) Supporting Document(s) ID Date Data Source [id number] 08/29/2020 07:05:00 PM EDT [facility] 1 OrderSheet [facility] Emergency Department [address] [place] [address] Phone #: ext- [phone] 08/29/2020 18:51 Patient: KATALINA TERAN Sex: F : 1990 Age: 30yWEIGHT:98.8 kg (S) HEIGHT:62 inches (S) BMI:39.9 STATUS:Unknown status [id number]: Tylenol with Codeine #[id number] COMPLAINT: abdominal painDIAGNOSIS: Cyst of ovaryLAB ORDERSOrder Description Priority Entered Acknowledged InitialedUrinalysis (Clean STAT 19:30 08/29/2020 19:31 Devon Her) Her, Shantal Shantal R.N. R.N.; Per protocol ( Other ); [employer] [place] M.D.HCG Urine Qual STAT 19:30 08/29/2020 19:31 Arden Her Rachel Rachel R.N. R.N.; Per protocol ( Other ); [employer] [place] M.D.CBC w Diff STAT 19:42 08/29/2020 19:42 Olga Espinoza Laura Laura R.N. R.N.; Per protocol; [employer] [place] M.D.CMP STAT 19:42 08/29/2020 19:42 Olga Espinoza, Latha Azul R.N. R.N.; Per protocol; [employer] [place] M.D.Lipase STAT 19:42 08/29/2020 19:42 Olga Espinoza, Latha Azul R.N. R.N.; Per protocol; [employer] [place] M.D.DIAGNOSTIC STUDY ORDERSOrder Description Priority Entered Acknowledged InitialedCT Abd PEL W/ IV STAT 20:23 08/29/2020 20:24 Olga,Contrast Only Richard RODRIGUEZ; Latha Elizabeth(Oxygen?(No)) 2 OrderSheet [facility] Emergency Department [address] [place] [address] Phone #: ext- [phone] 08/29/2020 18:51 Patient: [...] rce(s) Supporting Document(s) ID Date Data Source [id number] 08/29/2020 07:05:00 PM EDT [facility] 1 Medication Reconciliation Report [facility] Emergency Department [address] [place] [address] Phone #: ext- [phone] 08/29/2020 18:51 Patient: [...] rce(s) Supporting Document(s) ID Date Data Source [id number] 08/29/2020 07:05:00 PM EDT [facility] 1 Medication Administration Record [facility] Emergency Department [address] [place] [address] Phone #: ext- [phone] 08/29/2020 18:51 Patient: [...] NS IV : Bolus 1000 mL, then 98275:36 08/29/2020 Dose: IV Fluids mL/hr (NOW x1)Latha Espinoza RWhitney Bolus: 1000 mL wide open---- Dispensed: 1000 mL bagStop Site: #1 right :19 08/29/2020Dorinda Lau R.N. Name Value Range Interpretation Code Description Data Julisa rce(s) Supporting Document(s) ID Date Data Source [id number] 08/29/2020 07:05:00 PM EDT [facility] 1 General Instructions [facility] Emergency Department [address] [place] [address] Phone #: ext- [phone] 08/29/2020 18:51 Patient: [...] your healthcare provider. Reason for referral: recommend associate designer referral for L sided pelvic painand large L ovarian cyst. Summary of care provided to patient via paper.Understanding of the discharge instructions verbalized by patient. Expected course of illness, dis chargeinstructions, activity level, follow-up appointment and risks and benefits of treatment reviewed with patientand understanding verbalized. Agrees to plan of care. ADDITIONAL INFORMATIONOvarian Cysts 2 General Instructions [facility] Emergency Department [address] [place] [address] Phone #: ext- [phone] 08/29/2020 18:51 Patient: [...] pain, your healthcare provider may recommend using zyyr-qyt-dwerdhy pain medicine. If needed, your provide may [...] provider, or as advised. 3 General Instructions [facility] Emergency Department [address] [place] [address] Phone #: ext- [phone] 08/29/2020 18:51 Patient: [...] Weakness, dizziness, or fainting Abnormal vaginal bleeding [phone] The [employer]. [address] [place] [address]. All rights reserved. This information is not [...] rce(s) Supporting Document(s) ID Date Data Source [id number] 08/29/2020 07:05:00 PM EDT [facility] 1 Clinical Report - Nurses [facility] Emergency Department [address] [place] [address] Phone #: ext- [phone] 08/29/2020 18:51 Patient: KATALINA TERAN Sex: F : 1990 Age: 30yTRIAGEArrived by private vehicle. Historian: patient.Acuity: LEVEL 3.Chief Complaint: ABDOMINAL PAIN and NAUSEA.This started just prior to arrival. Relates location as in the left pelvic area. ( Pt states 30 minutes ago shebegan having sharp L pelvic pain. She states she has had ovarian cysts in the past that ruptured, and shebelieves that is what this is.).Treatment REAL ESTATE ASSET MANAGER:None.SEPSIS SCREEN: SIRS Screen negative. Sepsis Screen negative. [...] Omeprazole Oral 40 mg, daily. --18:55 08/29/20 Shantal Her R.N. Zyrtec. --18:56 08/29/20 Shantal Her R.N. Cetirizine HCl Oral (Tablet 10 mg), daily. --18:56 08/29/20 Shantal Her R.N. Adderall Oral 10 mg, daily, in the afternoon. --19:18 08/29/20 Shantal Her R.N.The following entry was struck by Shantal Her R.N., 19:18 (08/29/20) Reason - other. Adderall Oral (Tablet 10 mg), daily. --18:55 08/29/20 Shantal Her R.N. .Allergies 2 Clinical Report - Nurses [facility] Emergency Department [address] [place] [address] Phone #: ext- [phone] 08/29/2020 18:51 Patient: [...] no barriers. 3 Clinical Report - Nurses [facility] E mergency Department [address] [place] [address] Phone #: ext- [phone] 08/29/2020 18:51 Patient: [id number] Sex: F : 1990 Age: 30y FALL [...] via IV 4 Clinical Report - Nurses [facility] Emergency Department [address] [place] [address] Phone #: ext- [phone] 08/29/2020 18:51 Patient: [...] Patient verbalized understanding. Written instructions provided in Cook Islander. The patient was discharged by the physician [...] rce(s) Supporting Document(s) ID Date Data Source [id number] 08/29/2020 07:05:00 PM EDT [facility] 1 Clinical Report - Physicians/Mid Levels [facility] Emergency Department [address] [place] [address] Phone #: ext- [phone] 08/29/2020 18:51 Patient: [id number] Sex: F : 1990 Age: 30y Time [...] Glaucoma. 2 Clinical Report - Physicians/Mid Levels [facility] Emergency Department [address] [place] [address] Phone #: ext- [phone] 18:51 Patient: KATALINA TERAN Sex: F : [...] Hypertensive. 3 Clinical Report - Physicians/Mid Levels [facility] Emergency Department [address] [place] [address] Phone #: ext- [phone] 08/29/2020 18:51 Patient: [...] INDICATED 4 Clinical Report - Physicians/Mid Levels [facility] Emergency Department [address] [place] [address] Phone #: ext- [phone] 08/29/2020 18:51 Patient: [id number] Sex: F : 1990 Age: 30y RBC [...] Male GFR Interprentation 20-49 yrs >60 mL/min Kovolz33-55 yrs >56 mL/min Normal 60-69 yrs >49 mL/min Normal 70-79yrs>42 mL/min Normal 80 and above >35 mL/min Normal Female GFRInterpretation 20-39 yrs >60 mL/min Normal 40-49 yrs >58 mL/minNormal 50-59 yrs >51 mL/min Normal 60-69 yrs >45 mL/min Yuygcm89-19 yrs >39 mL/min Normal 80 and above >32 mL/min NormalLipase: (GUCCI: 08/29/2020 19:37) ( [facility] [place] [facility] [facility]11[facility] Final results Test Result Flag Units (Reference) LIPASE 18 U/L (13 - 60)Urinalysis: (GUCCI: 08/29/2020 19:22) ( [facility] [place] 08/29/2020 19:48) Final results Test Result Flag [...] Below 5 Clinical Report - Physicians/Mid Levels [facility] Emergency Department [address] [place] [address] Phone #: ext- [phone] 08/29/2020 18:51 Patient: KATALINA TERAN Sex: F : 0 1990 Age: 30y WBC 0 - 1 (NORMAL: NONE RBC 0 - 1 (NORMAL: NONE EPITHELIAL FEW (NORMAL: NONE Beta-HCG, Qual Urine: (GUCCI: 08/29/2020 19:22) ( [facility] [place] 08[facility]29/[facility] 19:44) Final results Test Result Flag Units (Reference) HCG URINE QUAL NEGATIVE (NORMAL: NEGAT HCG URINE QL REENTER NEGATIVE (NORMAL: NEGAT { KIT LOT # [id number] ){ KIT EXP DATE 08.30.21 ){ PROCEDURAL [...] daily. 6 Clinical Report - Physicians/Mid Levels [facility] Emergency Department [address] [place] [address] Phone #: ext- [phone] 08/29/2020 18:51 Patient: KATALINA TERAN Sex: F : 1990 Age: 30y Omeprazole Oral : 40 mg daily. Viibryd Oral : Tablet 20 mg, daily. Zyrtec*. Follow-up: Follow up with your healthcare provider. Reason for referral: recommend associate designer referral for L sided pelvic pain and [...] rce(s) Supporting Document(s) ID Date Data Source [id number] 08/29/2020 08:11:00 PM EDT [facility] Name Value Range Interpretation Code Description Data Julisa rce(s) Supporting Document(s) Lipase [Enzymatic activity/volume] in Serum or Plasma 18 U/L 13 - 60 [facility] ID Date Data Source [id number] 08/29/2020 08:11:00 PM EDT [facility] Name Value Range Interpretation Code Description Data Julisa rce(s) Supporting Document(s) COMPREHENSIVE METABOLIC PANEL [facility] COMPREHENSIVE METABOLIC PANEL Sodium [Moles/volume] in Serum or Plasma 135 mEq/L 134 - 153 [facility] Potassium [Moles/volume] in Serum or Plasma 4.2 mEq/L 3.6 - 5.0 [facility] Chloride [Moles/volume] in Serum or Plasma 99 mEq/L 98 - 107 [facility] Carbon dioxide, total [Moles/volume] in Serum or Plasma 25 MEQ/L 22 - 30 [facility] Glucose [Mass/volume] in Serum or Plasma 139 MG/DL 65 - 110 H [facility] BUN 13 MG/DL 7 - 21 [facility] Creatinine [Mass/volume] in Serum or Plasma 0.6 MG/DL 0.7 - 1.5 L [facility] BUN/CREAT 22 8 - 27 [facility] al Protein [Mass/volume] in Serum or Plasma 7.0 G/DL 6.3 - 8.2 [facility] Albumin [Mass/volume] in Serum or Plasma 4.4 G/DL 3.9 - 5.0 [facility] Globulin [Mass/volume] in Serum by calculation 2.6 GM/DL 2.4 - 3.2 [facility] A/G RATIO 1.7 0.8 - 2.0 [facility] Calcium [Mass/volume] in Serum or Plasma 9.3 MG/DL 8.4 - 10.2 [facility] Bilirubin.total [Mass/volume] in Serum or Plasma <0.7 MG/DL 0.2 - 1.3 [facility] Alkaline phosphatase [Enzymatic activity/volume] in Serum or Plasma 89 U/L 38 - 126 [facility] Aspartate aminotransferase [Enzymatic activity/volume] in Serum or Plasma 31 U/L 5 - 40 [facility] Alanine aminotransferase [Enzymatic activity/volume] in Seru m or Plasma 69 U/L 7 - 56 H [facility] Anion gap 3 in Serum or Plasma 11.0 mmol/L 8.0 - 16.0 [facility] AGE 30 yrs [facility] al NON-AA GFR >60 mL/min [facility] ital AFR AMER GFR >60 mL/min [facility] Male GFR In terprentation 20-49 [...] >32 mL/min Normal ID Date Data Source [id number] 08/29/2020 07:51:00 PM EDT [facility] Name Value Range Interpretation Code Description Data Julisa rce(s) Supporting Document(s) CBC W/AUTOMATED DIFF [facility] COMPLETE BLOOD COUNT Leukocytes [#/volume] in Blood by Automated count 9.9 10^3/uL 4.2 - 1 1.0 [facility] Erythrocytes [#/volume] in Blood by Automated count 4.55 10^6/uL 4. 20 - 5.40 [facility] Hemoglobin [Mass/volume] in Blood 13.9 g/dL 12.0 - 16.0 [facility] Hematocrit [Volume Fraction] of Blood by Automated count 40.6 % 3 7.0 - 47.0 [facility] Erythrocyte mean corpuscular volume [Entitic volume] by Auto mated count 89.2 fL 81.0 - 101 [facility] Erythrocyte mean corpuscular hemoglobin [Entitic mass] by Automated count 30.5 pg 27.0 - 34.0 [facility] Erythrocyte mean corpuscular hemoglobin concentration [Mass/volume] by Automated count 34.2 g/dL 31.0 - 36.0 [facility] Erythrocyte distribution width [Ratio] by Automated count 13.2 % 11.5 - 14.5 [facility] Platelets [#/volume] in Blood by Automated count 285 10^3/uL 150 - 45 0 [facility] Platelet mean volume [Entitic volume] in Blood by Automated count 8.4 fL 7.4 - 10.4 [facility] Neutrophils/100 leukocytes in Blood by Automated count 74.0 % 37. 0 - 80.0 [facility] Lymphocytes/100 leukocytes in Blood by Manual count 19.5 % 25.0 - 40.0 L [facility] Monocytes/100 leukocytes in Blood by Automated count 4.1 % 3.0 - 8.0 [facility] Eosinophils/100 leukocytes in Blood by Automated count 1.6 % 0.0 - 7.0 [facility] Basophils/100 leukocytes in Blood by Automated count 0.4 % 0.0 - 2.5 [facility] %IG 0.4 % 0.0 - 0.0 H [facility] al %NRBC 0.0 % 0.0 - 0.0 [facility] al Neutrophils [#/volume] in Blood by Automated count 7.31 10^3/uL 2.00 - 6.90 H [facility] Lymphocytes [#/volume] in Blood by Automated count 1.93 10^3/uL 0.60 - 3.40 [facility] Monocytes [#/volume] in Blood by Automated count 0.41 10^3/uL 0.00 - 0.90 [facility] Eosinophils [#/volume] in Blood by Automated count 0.16 10^3/uL 0.00 - 0.70 [facility] Basophils [#/volume] in Blood by Automated count 0.04 10^3/uL 0.00 - 0.20 [facility] #IG 0.04 10^3/uL 0.00 - 0.10 [facility] #NRBC 0.00 10^3/uL 0.00 - 0.00 [facility]ital MANUAL DIFF NOT INDICATED [facility] RBC MORPH NOT INDICATED [facility] ID Date Data Source [id number] 08/29/2020 07:48:00 PM EDT [facility] Name Value Range Interpretation Code Description Data Julisa rce(s) Supporting Document(s) [facility]IS [facility] SOURCE R [facility] COLOR yellow NORMAL: Yellow [facility] CLARITY clear NORMAL: Clear [facility] Specific gravity of Urine by Test strip 1.020 1.001 - 1.030 [facility] pH 6 5 - 9 [facility] al Glucose [Mass/volume] in Urine by Test strip NORM NORMAL: Negat [facility] Bilirubin.total [Presence] in Urine by Test strip NEG NORMAL: Negative [facility] Ketones [Presence] in Urine by Test strip NEG NORMAL: Negative [facility] Protein [Mass/volume] in Urine by Test strip 15 NORMAL: Negat [facility] Nitrite [Presence] in Urine by Test strip NEG NORMAL: Negative [facility] BLOOD NEG NORMAL: Negative [facility] Leukocyte esterase [Presence] in Urine by Test strip NEG CHRIS L: Negative [facility] Urobilinogen [Mass/volume] in Urine by Test strip NOR less kya n 1.0 mg/dL [facility] MICROSCOPIC See Below [facility] ital WBC 0 - 1 NORMAL: NONE SEEN [facility] Erythrocytes [#/volume] in Urine by Test strip 0 - 1 NORMAL: NON E SEEN [facility] EPITHELIAL FEW NORMAL: NONE SEEN [facility] ID Date Data Source [id number] 08/29/2020 07:43:00 PM EDT [facility] Name Value Range Interpretation Code Description Data Julisa rce(s) Supporting Document(s) HCG URINE QUAL NEGATIVE NORMAL: NEGATIVE [facility] HCG URINE QL REENTER NEGATIVE NORMAL: NEGATIVE [facility] { KIT LOT # [id number] ){ KIT EXP DATE 08.30.21 ){ PROCEDURAL CONTROL VALID ) ID Date Data Source [id number] 07/28/2020 05:55:00 PM EDT [facility] Name Value Range Interpretation Code Description Data Julisa rce(s) Supporting Document(s) Hemoglobin A1c/Hemoglobin.total in Blood 6.2 % 4.4 - 6.1 H [facility] {A1]{HB] ID Date Data Source [id number] 07/28/2020 05:32:00 PM EDT [facility] Name Value Range Interpretation Code Description Data Julisa rce(s) Supporting Document(s) Thyrotropin [Units/volume] in Serum or Plasma by Detec tion limit <= 0.05 mIU/L 1.40 uIU/mL 0.47 - 5.01 [facility] Procedure Social History Code Duration Value Status Description Data Source(s ) ETOH Use 04/27/2021 12:00:00 AM EDT Rarely consumes alcohol com pleted Rarely consumes alcohol [facility] ([facility] Smoking 04/27/2021 12:00:00 AM EDT Patient is a former smoker completed Patient is a former smoker [facility] ([facility]) Smoking 03/06/2021 12:00:00 AM EDT Patient is a former smoker completed Patient is a former smoker [facility] Alcohol intake 01/24/2021 12:00:00 AM EST Yes completed [facility] Smoking 01/24/2021 12:00:00 AM EST Former smoker completed Former smoker [facility] Alcohol intake 01/19/2021 12:00:00 AM EST Yes completed [facility] Smoking 01/19/2021 12:00:00 AM EST Former smoker completed Former smoker [facility] Alcohol intake 10/25/2020 12:00:00 AM EST Yes completed [facility] Smoking 10/25/2020 12:00:00 AM EST Former smoker completed Former smoker [facility] Vital Signs ID Date Data Source UNK Name Value Range Interpretation Code Description Data Source(s) Systolic blood pressure 117 mm[Hg] 117 mm[Hg] M [facility] ([facility]) Body mass index (BMI) [Ratio] 30.9 kg/m2 30.9 k g/m2 [facility] ([facility]) Body temperature 97.5 [degF] 97.5 [degF] [facility] ([facility]) Diastolic blood pressure 83 mm[Hg] 83 mm[Hg] [facility] ([facility]) Heart rate 88 /min 88 /min [facility] Body height 61.5 [in_i] 61.5 [in_i] [facility] 5'1.50" Body weight 166.00 [lb_av] 166.00 [lb_av] [facility] T ([facility]) Body height 62.5 [in_i] 62.5 [in_i] [facility] 5'2.50" Body weight 185.38 [lb_av] 185.38 [lb_av] [facility] ([facility]) Respiratory rate 18 /min 18 /min [facility] ( [facility]) Heart rate 94 /min 94 /min [facility] Systolic blood pressure 116 mm[Hg] 116 mm[Hg] [facility] ([facility]) Body mass index (BMI) [Ratio] 33.4 kg/m2 33.4 k g/m2 [facility] ([facility]) Diastolic blood pressure 79 mm[Hg] 79 mm[Hg] [facility] ([facility]) Systolic blood pressure 117 mm[Hg] 117 mm[Hg] [facility] Diastolic blood pressure 79 mm[Hg] 79 mm[Hg] [facility] Heart rate 77 /min 77 /min [facility] Body temperature 37.22 Margo 37.22 Margo [facility] has heating packs on abdomen, blanket on . Respiratory rate 19 /min 19 /min [facility] Oxygen saturation in Arterial blood by Pulse oximetry 95 % 95 % [facility] Body height 154.9 cm 154.9 cm [facility] Body weight 95.41 kg 95.41 kg [facility] Body mass index (BMI) [Ratio] 39.74 kg/m2 39.74 kg/m2 [facility] Systolic blood pressure 148 mm[Hg] 148 mm[Hg] [facility] Diastolic blood pressure 97 mm[Hg] 97 mm[Hg] [facility] Heart rate 93 /min 93 /min [facility] Body temperature 36.17 Margo 36.17 Margo [facility] Body height 154.9 cm 154.9 cm [facility] Body weight 96.979 kg 96.979 kg [facility] Body mass index (BMI) [Ratio] 40.40 kg/m2 40.40 kg/m2 [facility] Systolic blood pressure 124 mm[Hg] 124 mm[Hg] [facility] Diastolic blood pressure 84 mm[Hg] 84 mm[Hg] [facility] Heart rate 93 /min 93 /min [facility] Body temperature 36.89 Margo 36.89 Margo [facility] Respiratory rate 18 /min 18 /min [facility] Oxygen saturation in Arterial blood by Pulse oximetry 93 % 93 % [facility] Body height 157.5 cm 157.5 cm [facility] Body weight 97.977 kg 97.977 kg [facility] Body mass index (BMI) [Ratio] 39.51 kg/m2 39.51 kg/m2 [facility] Body temperature 96.9 [degF] 96.9 [degF] [facility] ([facility]) Systolic blood pressure 128 mm[Hg] 128 mm[Hg] M [facility] ([facility]) Body weight 216.00 [lb_av] 216.00 [lb_av] [facility] T ([facility]) Body weight 97.978 kg 97.978 kg [facility] ([facility]) Body height 61.5 [in_i] 61.5 [in_i] [facility] ([facility]) '50" Body mass index (BMI) [Ratio] 40.1 kg/m2 40.1 k g/m2 [facility] ([facility]) Diastolic blood pressure 90 mm[Hg] 90 mm[Hg] [facility] ([facility]) Heart rate 104 /min 104 /min [facility] ([facility]) Body surface area Derived from formula 1.96 m2 1.96 m2 [facility] ([facility]) Body weight 221.00 [lb_av] 221.00 [lb_av] [facility] ([facility] [facility]) Body height 61.5 [in_i] 61.5 [in_i] [facility] ([facility]) 50" Body mass index (BMI) [Ratio] 41.1 kg/m2 41.1 k g/m2 [facility] ([facility]) Body mass index (BMI) [Ratio] 40.9 kg/m2 40.9 k g/m2 [facility] ([facility]) Systolic blood pressure 142 mm[Hg] 142 mm[Hg] M EDENT ([facility]) pt states "I just took my adderal" Diastolic blood pressure 92 mm[Hg] 92 mm[Hg] MEDENT ([facility]) pt states "I just took my adderal" Heart rate 115 /min 115 /min MED[facility] ([facility]) Body temperature 97.1 [degF] 97.1 [degF] MEDENT ([facility]) Body weight 220.00 [lb_av] 220.00 [lb_av] MEDEN T ([facility]) Body weight 99.792 kg 99.792 kg MEDENT ([facility]) Body height 61.5 [in_i] 61.5 [in_i] MEDENT ([facility]) 5'50" Body surface area Derived from formula 1.98 m2 1.98 m2 MEDENT ([facility]) Heart rate 85 /min 85 /min [facility] ([facility] Body mass index (BMI) [Ratio] 39.5 kg/m2 39.5 k g/m2 [facility] ([facility]) Body height 62.5 [in_i] 62.5 [in_i] [facility] ([facility] 5'2.50" Diastolic blood pressure 86 mm[Hg] 86 mm[Hg] [facility] ([facility]) Respiratory rate 18 /min 18 /min MED[facility] ( [facility]) Systolic blood pressure 122 mm[Hg] 122 mm[Hg] M EDENT ([facility]) Body weight 219.50 [lb_av] 219.50 [lb_av] MEDEN T ([facility]) Patient Treatment Plan of Care Planned Activity Planned Date Details Description Data Source (s) Ondansetron 4 MG Disintegrating Oral Tablet 01/23/2021 12:00:00 AM [facility] Vitamin B 12 1 MG Oral Tablet 01/23/2021 12:00:00 AM [facility] Simethicone 80 MG Chewable Tablet 01/23/2021 12:00:00 AM [facility] Magnesium Hydroxide 80 MG/ML Oral Suspension 01/23/2021 12:00:00 AM [facility] 0.4 ML Enoxaparin sodium 100 MG/ML Prefilled Syringe 12:00:00 AM [facility] pediatric multivitamin-iron (POLY--ELAINA WITH IRON) 15 MG chewable tablet 01/23/2021 12:00:00 AM [facility] Acetaminophen 325 MG Oral Tablet 01/23/2021 12:00:00 AM EST [facility] Acetaminophen 500 MG Oral Tablet [facility] Omeprazole 20 MG Delayed Release Oral Capsule [facility] Levofloxacin 500 MG Oral Tablet [facility] nystatin (MYCOSTATIN) 608078 UNIT/ML suspension [facility]
--- NOTE | 2021-09-08 08:01 | REP ---
INDICATION: SOB COMPARISON: None. TECHNIQUE: Portable AP view of the chest FINDINGS: The mediastinum and cardiac silhouette are within normal limits for portable technique. The lung sarkar are clear without acute consolidation, effusion, or pneumothorax. Skeletal structures are intact. IMPRESSION: No acute cardiopulmonary process appreciated. <Electronically signed by Uvaldo Bates > 09/08/21 075
== END 2021-09-08 07:36 | disposition home or self-care (01) ==
LOC: M ED 01:54
DX: U07.1 COVID-19 (principal); J12.82 Pneumonia due to coronavirus disease 2019; I10 Essential (primary) hypertension; J45.909 Unspecified asthma, uncomplicated; E78.5 Hyperlipidemia, unspecified; F33.9 Major depressive disorder, recurrent, unspecified; Z79.899 Other long term (current) drug therapy; Z91.040 Latex allergy status
CPT/HCPCS: 71045; 80048; 83735; 85025; 96374; 96375; 99284; J1885; J2405

== ENCOUNTER → 2021-11-06 | Outpatient (CLI) | payer OTHER ==
[2021-11-06 17:58] LABS: BASO # 0.1 10^3/uL (0.0-0.2); BASO % 0.6 % (0.0-1.0); EOS # 0.1 10^3/uL (0.0-0.5); EOS % 1.2 % (0.0-3.0); HEMATOCRIT 42.7 % (36.0-47.0); HEMOGLOBIN 14.5 g/dl (12.0-15.5); LYMPH # 1.5 10^3/uL (1.5-5.0); LYMPH % 18.3 % (24.0-44.0); MEAN CORPUSCULAR HEMOGLOBIN 32.6 pg (27.0-33.0); MONO # 0.4 10^3/uL (0.0-0.8); MONO % 4.6 % (2.0-8.0); NEUTROPHILS # 6.1 10^3/uL (1.5-8.5); NEUTROPHILS % 74.9 % (36.0-66.0); PLATELET COUNT, AUTOMATED 302 10^3/uL (150-450); RED BLOOD COUNT 4.45 10^6/uL (4.00-5.40); WHITE BLOOD COUNT 8.1 10^3/uL (4.0-10.0)
[2021-11-06 20:10] LABS: ALBUMIN 3.6 GM/DL (3.2-5.2); ALT/SGPT 19 U/L (12-78); BILIRUBIN,TOTAL 0.4 MG/DL (0.2-1.0); BLOOD UREA NITROGEN 13 MG/DL (7-18); CALCIUM LEVEL 9.4 MG/DL (8.5-10.1); CARBON DIOXIDE LEVEL 30 MEQ/L (21-32); CHLORIDE LEVEL 104 MEQ/L (98-107); CREATININE FOR GFR 0.64 MG/DL (0.55-1.30); FERRITIN 90 NG/ML (8-252); GLOMERULAR FILTRATION RATE > 60.0 (>60); GLUCOSE, FASTING 86 MG/DL (70-100); IRON (FE) 47 UG/DL (50-170); MAGNESIUM LEVEL 1.9 MG/DL (1.8-2.4); PERCENT SATURATION 12.8 % (13.2-45.0); PHOSPHORUS LEVEL 3.8 MG/DL (2.5-4.9); POTASSIUM SERUM 3.8 MEQ/L (3.5-5.1); SODIUM LEVEL 139 MEQ/L (136-145); TOTAL IRON BINDING CAPACITY 366 UG/DL (250-450); TOTAL PROTEIN 7.4 GM/DL (6.4-8.2)
[2021-11-06 20:18] LABS: FOLATE 5.7 NG/ML; TOTAL 25(OH) VITAMIN D 35.6 NG/ML (30.0-100.0); VITAMIN B12 LEVEL 211 PG/ML
[2021-11-06 21:17] LABS: HEMOGLOBIN A1c 4.6 %
== END ==
LOC: M LAB 16:17
PROVIDERS: ATTEND Physician Assistant Surgical
DX: K91.2 Postsurgical malabsorption, not elsewhere classified (principal); Z98.84 Bariatric surgery status; E55.9 Vitamin D deficiency, unspecified; Z86.39 Personal history of other endocrine, nutritional and metabolic disease

== ENCOUNTER → 2021-11-06 | Outpatient (CLI) | payer OTHER ==
[2021-11-06 18:38] LABS: BASO % 0.5 % (0.0-1.0); EOS # 0.1 10^3/uL (0.0-0.5); EOS % 1.1 % (0.0-3.0); HEMATOCRIT 41.5 % (36.0-47.0); LYMPH # 1.5 10^3/uL (1.5-5.0); LYMPH % 17.5 % (24.0-44.0); MEAN CORPUSCULAR HEMOGLOBIN 32.1 pg (27.0-33.0); MEAN CORPUSCULAR HGB CONC 33.7 g/dl (32.0-36.5); MEAN CORPUSCULAR VOLUME 95.2 fl (80.0-96.0); MONO # 0.4 10^3/uL (0.0-0.8); MONO % 5.1 % (2.0-8.0); NEUTROPHILS # 6.3 10^3/uL (1.5-8.5); NEUTROPHILS % 75.4 % (36.0-66.0); PLATELET COUNT, AUTOMATED 296 10^3/uL (150-450); RED BLOOD COUNT 4.36 10^6/uL (4.00-5.40); WHITE BLOOD COUNT 8.4 10^3/uL (4.0-10.0)
[2021-11-06 19:51] LABS: ERYTHROCYTE SEDIMENTATION RATE 14 mm/hr (0-20)
[2021-11-06 21:03] LABS: HEMOGLOBIN A1c 4.7 %
[2021-11-06 21:46] LABS: ALBUMIN 3.7 GM/DL (3.2-5.2); ALT/SGPT 19 U/L (12-78); BILIRUBIN,TOTAL 0.6 MG/DL (0.2-1.0); BLOOD UREA NITROGEN 13 MG/DL (7-18); CALCIUM LEVEL 9.6 MG/DL (8.5-10.1); CARBON DIOXIDE LEVEL 31 MEQ/L (21-32); CHLORIDE LEVEL 103 MEQ/L (98-107); FOLATE 5.4 NG/ML; GLOMERULAR FILTRATION RATE > 60.0 (>60); GLUCOSE, FASTING 86 MG/DL (70-100); POTASSIUM SERUM 3.6 MEQ/L (3.5-5.1); RHEUMATOID FACTOR QUANT < 10.0 IU/ML (<15.0); SODIUM LEVEL 140 MEQ/L (136-145); TOTAL PROTEIN 7.6 GM/DL (6.4-8.2); VITAMIN B12 LEVEL 204 PG/ML
[2021-11-08 11:11] LABS: ALBUMIN % 57.4 % (55.8-66.1); ALPHA-1-GLOBULIN % 5.6 % (2.9-4.9); BETA-1-GLOBULINS % 5.9 % (4.7-7.2); BETA-2-GLOBULINS % 4.8 % (3.2-6.5); GAMMA GLOBULIN % 14.3 % (11.1-18.8)
[2021-11-08 11:12] LABS: ALBUMIN 4.36 GM/DL (3.29-5.55); ALPHA-1-GLOBULINS 0.43 GM/DL (0.17-0.41); ALPHA-2-GLOBULINS 0.91 GM/DL (0.42-0.99); BETA-1-GLOBULINS 0.45 GM/DL (0.28-0.60); BETA-2-GLOBULINS 0.36 GM/DL (0.19-0.55); GAMMA GLOBULINS 1.09 GM/DL (0.65-1.58)
[2021-11-15 14:13] LABS: ANTINUCLEAR ANTIBODIES DIRECT Negative (Negative); LEAD BLOOD ADULT <1 ug/dL (0-4); MERCURY LEVEL <1.0 ug/L (0.0-14.9); VITAMIN B1 LEVEL WHOLE BLOOD 126.9 nmol/L (66.5-200.0); VITAMIN B6,PYRIDOXAL PHOSPHATE 4.7 ug/L (2.0-32.8); VITAMIN E(ALPHA TOCOPHEROL) 10.9 mg/L (5.9-19.4); VITAMIN E(GAMMA TOCOPHEROL) 1.3 mg/L (0.7-4.9)
== END ==
LOC: M LAB 16:19
PROVIDERS: ATTEND Psychiatry & Neurology Neurology
DX: G62.9 Polyneuropathy, unspecified (principal)

== ENCOUNTER → 2022-12-24 | Outpatient (CLI) | payer OTHER | LOC: M LAB 10:56 | PROVIDERS: ATTEND Family Medicine | DX: R19.7 Diarrhea, unspecified (principal) ==

== ENCOUNTER → 2023-04-03 | Outpatient (REF) | payer OTHER | LOC: M LAB REF 17:39 | PROVIDERS: ATTEND Nurse Practitioner Family | DX: R19.7 Diarrhea, unspecified (principal) ==

== ENCOUNTER → 2025-11-08 | Outpatient (CLI) | payer OTHER ==
[~2025-11-08] MED LIST changes: +E-Z-GAS II EFFERVESCENT PACKET (SODIUM BICARB./CITRIC ACID/SIMETHICONE) As Ordered ONE; +E-Z-HD 98% w/w 340 GM SUSP BTL As Ordered ONE; +E-Z-PAQUE 96% w/w SUSP 176 GM BTL As Ordered ONE
== END ==
LOC: M RAD 08:10
PROVIDERS: ATTEND Family Medicine
DX: R10.13 Epigastric pain (principal)